=== PATIENT | female | born 1940 | race Caucasian/White ===

== ENCOUNTER → 2016-07-01 | Outpatient (CLI) | payer MEDICARE, OTHER ==
[~2016-07-01] MED LIST: ACET-2429 PO; ACET325T38 PO; BETH25TA PO; BYSTOLIC 5MG; CEPH-507 PO; DICL25CA4 PO; DIPH25CA79 PO; ENAL20TA PO; ENLP10T; FURO-124 PO; HYDR-1231 PO; HYDR-3812 PO; HYDROCHLOROT 25 MG; NEBI5TAB8 PO; OMEP20CA12 PO; OMEP40CA36 PO; POTA-51 PO; SIMV20TA3 PO; SOLI10TA2 PO; TYLENOL
--- OUTSIDE RECORDS SUMMARY | 2016-07-01 10:20 | XMS REPORT | Continuity of Care Document ---
Author Author [facility] Organization [facility] Address Unknown Phone Unavailable Care Team Providers Care Sampler Radioactive Waste Name Role Phone EVAN MURO MD PCP Insurance Providers Payer Name Policy Number Subscriber Name Relationship [employer] [id number] Jessica Yu 18 Self / Same As Patient Comm Crossover Enter Ins Name [id number] Jessica Yu 18 Self / Same As Patient Advance Directives Directive Response Recorded Date/Time Advance Directives No 05/12/16 11:33am Health Care Power of Wharf Tender Head No 05/12/16 11:33am Resuscitation Status Full Code 05/12/16 11:33am Problems Active Problems Medical Problem Onset Date Status Contusion Unknown Acute Medications Current Home Medications Medication Dose Units Route Directions Days/Qty Instructions Start Date Simvastatin 20 Mg 20 Mg Oral Daily 06/08/14 Enalapril Maleate 20 Mg 20 Mg Oral Daily 06/08/14 Omeprazole 20 Mg 20 Mg Oral Daily 30 06/08/14 Diclofenac Potassium 25 Mg 25 Mg Oral Twice A Day 05/12/16 Nebivolol Hcl 5 Mg 5 Mg Oral Daily 05/12/16 Acetaminophen 325 Mg 650 Mg Oral Twice A Day 05/12/16 Diphenhydramine Hcl 25 Mg 25 Mg Oral Twice A Day 05/12/16 Past Home Medications Medication Directions Ordered Status Enalapril Maleate 10 Mg Tablet, 12/29/07 Discontinued [Hydrochlorot 25MG] , 12/29/07 Discontinued [Bystolic 5MG] , 12/29/07 Discontinued [Tylenol] , 12/29/07 Discontinued Nebivolol Hcl 5 Mg Tablet, 5 Each Oral Daily 06/08/14 Discontinued Hydrocodone Bit/Acetaminophen 1 Tab Tablet, 1 Tab Oral Every 6 Hours as needed for Pain 06/08/14 Discontinued Social History Social History Problem Response Recorded Date/Time Alcohol Use Denies Use 06/08/2014 1:27pm Recreational Drug Use No 06/08/2014 1:27pm Recent Foreign Travel No 05/12/2016 11:32am Recent Infectious Disease Exposure No 05/12/2016 11:32am Hospitalization with Isolation Denies 05/12/2016 11:35am Sexually Transmitted Disease No 05/12/2016 11:35am HIV/AIDS No 05/12/2016 11:35am Smoking Status Former Smoker 05/12/2016 11:34am Type Used Cigarettes 05/12/2016 11:34am Recent Hopitalizations No 05/12/2016 11:35am Sexually Transmitted Disease No 05/12/2016 11:35am Hospitalization with Isolation Denies 05/12/2016 11:35am Query Response Start Date Stop Date Smoking Status Former Smoker Hospital Discharge Instructions No hospital discharge instructions. Plan of Care Discharge Date 05/12/16 2:02pm Prescriptions See Medication Section Functional Status No functional status results. Allergies, Adverse Reactions, Alerts Allergen Type Severity Reaction Status Last Updated Penicillins ([id number]) Allergy Severe FACE/EYE SWELLING Active 05/12/16 Immunizations No immunization records. Vital Signs Acute Vital Signs Vital Response Date/Time Pulse Rate (adult) 67 bpm (60 - 90) 05/12/2016 11:42am Respiratory Rate 16 bpm (12 - 24) 05/12/2016 11:42am O2 Sat by Pulse Oximetry 98 % (88 - 100) 05/12/2016 11:42am Blood Pressure 173/80 mm Hg 05/12/2016 11:42am Blood Pressure Mean 111 mm Hg 05/12/2016 11:42am Pain Numeric Pain Scale 0-No Pain 05/12/2016 11:42am Height (Feet) 5 feet 05/12/2016 11:29am Height (Inches) 7.00 inches 05/12/2016 11:29am Height (Calculated Centimeters) 170.140492 cm 05/12/2016 11:29am Weight (Pounds) 157 pounds 05/12/2016 11:29am Weight (Ounces) 9.0 oz 05/12/2016 11:29am Weight (Calculated Grams) 18831.15 gm 05/12/2016 11:29am Weight (Calculated Kilograms) 71.647704 kilograms 05/12/2016 11:29am Calculated BMI 24.7 05/12/2016 11:29am Results Laboratory Results Test Name Result Units Flags Reference Collection Date/Time Result Date/ Time Comments White Blood Count 6.4 10^3/uL 4.3-11.0 05/12/2016 11:50am 05/12/2016 12 :17pm Red Blood Count 4.66 10^6/uL 4.35-5.85 05/12/2016 11:50am 05/12/2016 12 :17pm Hemoglobin 14.1 G/DL 11.5-16.0 05/12/2016 11:50am 05/12/2016 12:17pm Hematocrit 43 % 35-52 05/12/2016 11:50am 05/12/2016 12:17pm Mean Corpuscular Volume 92 FL 80-99 05/12/2016 11:50am 05/12/2016 12: 17pm Mean Corpuscular Hemoglobin 30 PG 25-34 05/12/2016 11:50am 05/12/2016 12:17pm Mean Corpuscular Hemoglobin Concent 33 G/DL 32-36 05/12/2016 11:50am 12:17pm Red Cell Distribution Width 13.5 % 10.0-14.5 05/12/2016 11:50am 2015 12:17pm Platelet Count 158 10^3/uL 130-400 05/12/2016 11:50am 05/12/2016 12: 17pm Mean Platelet Volume 9.8 FL 7.4-10.4 05/12/2016 11:50am 05/12/2016 12: 17pm Neutrophils (%) (Auto) 56 % 42-75 05/12/2016 11:50am 05/12/2016 12: 17pm Lymphocytes (%) (Auto) 31 % 12-44 05/12/2016 11:50am 05/12/2016 12: 17pm Monocytes (%) (Auto) 10 % 0-12 05/12/2016 11:50am 05/12/2016 12:17pm Eosinophils (%) (Auto) 3 % 0-10 05/12/2016 11:50am 05/12/2016 12:17pm Basophils (%) (Auto) 0 % 0-10 05/12/2016 11:50am 05/12/2016 12:17pm Neutrophils # (Auto) 3.6 X 10^3 1.8-7.8 05/12/2016 11:50am 05/12/2016 12:17pm Lymphocytes # (Auto) 2.0 X 10^3 1.0-4.0 05/12/2016 11:50am 05/12/2016 12:17pm Monocytes # (Auto) 0.6 X 10^3 0.0-1.0 05/12/2016 11:50am 05/12/2016 12: 17pm Eosinophils # (Auto) 0.2 10^3/uL 0.0-0.3 05/12/2016 11:50am 05/12/2016 12:17pm Basophils # (Auto) 0.0 10^3/uL 0.0-0.1 05/12/2016 11:50am 05/12/2016 12 :17pm Urine Color YELLOW 05/12/2016 12:00pm 05/12/2016 12:26pm Urine Clarity SLIGHTLY CLOUDY 05/12/2016 12:00pm 05/12/2016 12: 26pm Urine pH 6 5-9 05/12/2016 12:00pm 05/12/2016 12:26pm Urine Specific [place] 1.010 * 1.016-1.022 05/12/2016 12:00pm 2015 12:26pm Urine Protein 2+ * NEGATIVE 05/12/2016 12:00pm 05/12/2016 12:26pm Urine Glucose (UA) NEGATIVE NEGATIVE 05/12/2016 12:00pm 05/12/2016 12 :26pm Urine RBC (Auto) 3+ * NEGATIVE 05/12/2016 12:00pm 05/12/2016 12:26pm Urine Ketones NEGATIVE NEGATIVE 05/12/2016 12:00pm 05/12/2016 12: 26pm Urine Nitrite NEGATIVE NEGATIVE 05/12/2016 12:00pm 05/12/2016 12: 26pm Urine Bilirubin NEGATIVE NEGATIVE 05/12/2016 12:00pm 05/12/2016 12: 26pm Urine Urobilinogen NORMAL MG/DL NORMAL 05/12/2016 12:00pm 05/12/2016 12 :26pm Urine Leukocyte Esterase 3+ * NEGATIVE 05/12/2016 12:00pm 05/12/2016 12 :26pm Urine RBC 2-5 /HPF * 05/12/2016 12:00pm 05/12/2016 12:26pm Urine WBC >100 /HPF * 05/12/2016 12:00pm 05/12/2016 12:26pm Urine Bacteria FEW /HPF * 05/12/2016 12:00pm 05/12/2016 12:26pm Urine Squamous Epithelial Cells 5-10 /HPF 05/12/2016 12:00pm 2015 12:26pm Urine Crystals NONE /LPF 05/12/2016 12:00pm 05/12/2016 12:26pm Urine Casts NONE /LPF 05/12/2016 12:00pm 05/12/2016 12:26pm Urine Mucus NEGATIVE /LPF 05/12/2016 12:00pm 05/12/2016 12:26pm Urine Culture Indicated YES 05/12/2016 12:00pm 05/12/2016 12:26pm Sodium Level 140 MMOL/L 135-145 05/12/2016 11:50am 05/12/2016 12:43pm Potassium Level 4.1 MMOL/L 3.6-5.0 05/12/2016 11:50am 05/12/2016 12: 43pm Chloride Level 110 MMOL/L H 98-107 05/12/2016 11:50am 05/12/2016 12:43pm Carbon Dioxide Level 23 MMOL/L 21-32 05/12/2016 11:50am 05/12/2016 12: 43pm Anion Gap 7 MMOL/L 5-14 05/12/2016 11:50am 05/12/2016 12:43pm Blood Urea Nitrogen 24 MG/DL H 7-18 05/12/2016 11:50am 05/12/2016 12: 43pm Creatinine 1.43 MG/DL H 0.60-1.30 05/12/2016 11:50am 05/12/2016 12:43pm BUN/Creatinine Ratio 17 05/12/2016 11:50am 05/12/2016 12:43pm Estimat Glomerular Filtration Rate 36 05/12/2016 11:50am 2015 12:43pm GFR INTERPRETIVE DATA UNITS FOR ESTIMATED GFR (eGFR): mL/min/1.73 M2 REFERENCE RANGE FOR ESTIMATED GFR (eGFR) eGFR NORMAL eGFR >60 MODERATELY DECREASED eGFR 30-59 SEVERLY DECREASED eGFR 15-29 KIDNEY FAILURE <15 (OR DIALYSIS) Glucose Level 89 MG/DL 70-105 05/12/2016 11:50am 05/12/2016 12:43pm Calcium Level 9.0 MG/DL 8.5-10.1 05/12/2016 11:50am 05/12/2016 12:43pm Total Bilirubin 0.4 MG/DL 0.1-1.0 05/12/2016 11:50am 05/12/2016 12: 43pm Alkaline Phosphatase 54 U/L 40-136 05/12/2016 11:50am 05/12/2016 12: 43pm Aspartate Amino Transf (AST/SGOT) 12 U/L 5-34 05/12/2016 11:50am 2015 12:43pm Alanine Aminotransferase (ALT/SGPT) 10 U/L 0-55 05/12/2016 11:50am 11/2015 12:43pm Total Protein 6.7 G/DL 6.4-8.2 05/12/2016 11:50am 05/12/2016 12:43pm Albumin 4.1 G/DL 3.2-4.5 05/12/2016 11:50am 05/12/2016 12:43pm Procedures Procedure Status Date Provider(s) Tracing only of electrocardiogram Active 05/12/16 TESFAYE KOTHARI DO Encounters Encounter Location Arrival/Admit Date Discharge/Depart Date Attending Provider Departed Clinic [facility] 05/12/16 11:19am 05/12/16 2: 02pm TESFAYE KOTHARI DO
--- NOTE | 2016-07-01 12:32 | Diagnostic Imaging Report ---
PROCEDURE: US Thyroid. TECHNIQUE: Multiple real-time grayscale images were obtained of the thyroid in various projections. INDICATION: Fullness in neck. FINDINGS: The previous thyroid ultrasound exam of 06/18/2014 noted diffuse enlargement of the thyroid gland. Each lobe also had a heterogeneous texture. On this study, the thyroid gland remains enlarged. The right lobe measures 6.2 x 3.5 x 2.6 cm while the left lobe is estimated to be 6.5 x 3.8 x 2.8 cm (normal gland size 4-5 x 2 x 2 cm or less). On the prior exam, the right lobe measured 6.1 x 3.2 x 2.4 cm while the left lobe is estimated to be 5.9 x 3.9 x 2.6 cm. Each lobe still has somewhat of a heterogeneous appearance, but there is no discrete solid or cystic mass identified. IMPRESSION: 1. The thyroid gland is enlarged and similar in appearance to the prior study. No new abnormality has developed. 2. If the patient's thyroid laboratory values suggest Graves' disease and if further imaging is desired, then a nuclear medicine thyroid scan with uptake will be recommended. Dictated by: Dictated on workstation # [id number]
== END ==
LOC: RAD 10:16
PROVIDERS: ATTEND Family Medicine
DX: R22.1 Localized swelling, mass and lump, neck (principal)
CPT/HCPCS: 76536

== ENCOUNTER 2016-07-05 22:34 | Inpatient (IN) | payer MEDICARE, OTHER ==
[~2016-07-05] VITALS: Ht 170.2 cm; Wt 71.8 kg
[~2016-07-05 22:34] MED LIST changes: -ACET-2429 PO; -BETH25TA PO; -FURO-124 PO; -OMEP40CA36 PO; -POTA-51 PO; -SOLI10TA2 PO
--- OUTSIDE RECORDS SUMMARY | 2016-07-05 22:39 | XMS REPORT | Continuity of Care Document ---
Author Author [facility] Organization [facility] Address Unknown Phone Unavailable Care Team Providers Care Corporate Librarian Name Role Phone EVAN MURO MD PCP Insurance Providers Payer Name Policy Number Subscriber Name Relationship [employer] [id number] Jessica Yu 18 Self / Same As Patient Comm Crossover Enter Ins Name [id number] Jessica Yu 18 Self / Same As Patient Advance Directives Directive Response Recorded Date/Time Advance Directives No 05/12/16 11:33am Health Care Power of Poll Watcher No 05/12/16 11:33am Resuscitation Status Full Code [...] Type Severity Reaction Status Last Updated Penicillins ([id number]) Allergy Severe FACE/EYE SWELLING Active 05/12/16 Immunizations [...] 7.00 inches 05/12/2016 11:29am Height (Calculated Centimeters) 170.253799 cm 05/12/2016 11:29am Weight (Pounds) 157 pounds 05/12/2016 11:29am Weight (Ounces) 9.0 oz 05/12/2016 11:29am Weight (Calculated Grams) 94089.15 gm 05/12/2016 11:29am Weight (Calculated Kilograms) 71.233640 kilograms 05/12/2016 11:29am Calculated BMI 24.7 05/12/2016 [...] 5-9 05/12/2016 12:00pm 05/12/2016 12:26pm Urine Specific [place] 1.010 * 1.016-1.022 05/12/2016 12:00pm 2015 12:26pm [...] Discharge/Depart Date Attending Provider Departed Clinic [facility] 05/12/16 11:19am 05/12/16 2: 02pm TESFAYE KOTHARI DO
[2016-07-05 22:59] LABS: BASOPHILS % (AUTO) 0 % (0-10); EOSINOPHILS % (AUTO) 0 % (0-10); LYMPHOCYTES # (AUTO) 0.8 X 10^3 (1.0-4.0); LYMPHOCYTES % (AUTO) 6 % (12-44); MEAN CORPUSCULAR HEMOGLOBIN 30 PG (25-34); MEAN CORPUSCULAR HGB CONC 33 G/DL (32-36); MEAN CORPUSCULAR VOLUME 90 FL (80-99); MEAN PLATELET VOLUME 10.5 FL (7.4-10.4); MONOCYTES # (AUTO) 2.4 X 10^3 (0.0-1.0); MONOCYTES % (AUTO) 16 % (0-12); NEUTROPHILS # (AUTO) 11.7 X 10^3 (1.8-7.8); NEUTROPHILS % (AUTO) 78 % (42-75); PLATELET COUNT 194 10^3/uL (130-400); RED BLOOD COUNT 4.42 10^6/uL (4.35-5.85); RED CELL DISTRIBUTION WIDTH 13.2 % (10.0-14.5); WHITE BLOOD COUNT 14.9 10^3/uL (4.3-11.0)
[2016-07-05] MEDS ORDERED: ACETAMINOPHEN 500 MG TAB (TYLENOL) PO ONE (23:00)
[2016-07-05 23:03] LABS: INR 1.1 (0.8-1.4); PROTHROMBIN TIME PATIENT 13.4 SEC (12.2-14.7)
[2016-07-05 23:22] LABS: NEUTROPHILS % (MANUAL) 69 %
[2016-07-05 23:23] LABS: BAND NEUTROPHILS 6 %; BASOPHILS % (MANUAL) 0 %; EOSINOPHILS % (MANUAL) 0 %; LYMPHOCYTES % (MANUAL) 18 %; REACTIVE LYMPHOCYTES 4 %
[2016-07-05 23:25] LABS: ALBUMIN 3.8 G/DL (3.2-4.5); BILIRUBIN,TOTAL 0.5 MG/DL (0.1-1.0); CALCIUM 8.8 MG/DL (8.5-10.1); CREATININE SERUM 2.46 MG/DL (0.60-1.30); POTASSIUM 4.7 MMOL/L (3.6-5.0); TOTAL PROTEIN 6.2 G/DL (6.4-8.2)
[2016-07-05] MEDS ORDERED: NS IV 1000 ML 1,000 ML IV ONE (23:36)
[2016-07-05 23:40] LABS: BILIRUBIN,URINE NEGATIVE (NEGATIVE); KETONES,URINE NEGATIVE (NEGATIVE); LEUKOCYTE ESTERASE ,URINE 3+ (NEGATIVE); NITRITE,URINE NEGATIVE (NEGATIVE); PH,URINE 6 (5-9); PROTEIN,URINE 4+ (NEGATIVE); UROBILINOGEN,URINE NORMAL (NORMAL)
[2016-07-05 23:45] LABS: WBC,URINE TNTC /HPF
[2016-07-05] MEDS ORDERED: cefTRIAXone INJECTION 1,000 MG in NORMAL SALINE (BAXTER MINI) 50 ML IV ONE (23:45)
[2016-07-06] VITALS (21 sets, daily range): BP systolic 89–158; BP diastolic 45–74
[2016-07-06] MEDS ORDERED: LEVOFLOXACIN 500 MG/100 ML IV 100 ML IV ONE (00:30)
--- NOTE | 2016-07-06 00:34 | ED General ---
General Chief Complaint: Fever-Adult/Adol Stated Complaint: WEAKNESS Nursing Triage Note: per EMS patient recently had a bladder sling, patient has been having dysuria and developed fever today. family activated EMS because patient wasn't able to get out of chair Nursing Sepsis Screen: Possible Sepsis Risk Source of Information: Patient Exam Limitations: No Limitations History of Present Illness Time Seen by Provider: 22:54 Initial Comments This pleasant 76-year-old woman presents to the emergency room via EMS from her home where she was found to be extremely weak and unable to get out of her chair. She has been feeling ill since last night. Review of her chart notes a recent bladder sling procedure in May by Dr. Dubon. Patient reports some difficulty urinating since then. UA collected shows grossly cloudy and purulent urine. Patient was felt to be at high risk for sepsis and the sepsis protocol was initiated. Patient's lower abdomen is tender and appears distended. Urinary retention is suspected. Patient denies any gastrointestinal or respiratory symptoms. She is febrile and tachycardic. Allergies and Home Medications Allergies Coded Allergies: Penicillins (Verified Allergy, Severe, FACE/EYE SWELLING, 05/12/16) Home Medications Acetaminophen 325 Mg Tablet 650 MG PO BID (Reported) Diclofenac Potassium 25 Mg Capsule 25 MG PO BID (Reported) Diphenhydramine HCl 25 Mg Capsule 25 MG PO BID (Reported) Enalapril Maleate 20 Mg Tablet 20 MG PO DAILY (Reported) Nebivolol HCl 5 Mg Tablet 5 MG PO DAILY (Reported) Omeprazole 20 Mg Capsule.dr #30 20 MG PO DAILY (Reported) Simvastatin 20 Mg Tablet 20 MG PO DAILY (Reported) Constitutional: see HPI EENTM: no symptoms reported Respiratory: no symptoms reported Cardiovascular: see HPI Gastrointestinal: no symptoms reported Genitourinary: see HPI : No Musculoskeletal: no symptoms reported Skin: no symptoms reported Psychiatric/Neurological: Other (alert and oriented but mentation dulled) Hematologic/Lymphatic: No Symptoms Reported Past [id number]-Wuzkec Hx Patient Social History Alcohol Use: Denies Use Recreational Drug Use: No Smoking Status: Former Smoker Type Used: Cigarettes Recent Foreign Travel: No Contact w/Someone Who Travel: No Recent Infectious Disease Expo: No Recent Hopitalizations: No Physical Abuse Screen: No Sexual Abuse: No Immunizations Up To Date Date of Pneumonia Vaccine: Jun 07, 2012 Date of Influenza Vaccine: Apr 27, 2016 Seasonal Allergies Seasonal Allergies: Yes Surgeries HX Surgeries: Yes Surgeries: Bladder Surgery, Hysterectomy Respiratory Hx Respiratory Disorders: No Cardiovascular Hx Cardiac Disorders: Yes Cardiac Disorders: High Cholesterol, Hypertension Neurological Hx Neurological Disorders: No Reproductive System Hx Reproductive Disorders: Yes (GENITAL PROLAPSE) Sexually Transmitted Disease: No HIV/AIDS: No Genitourinary Hx Genitourinary Disorders: Yes (SYDNIE, ) Genitourinary Disorders: UTI-Chronic Gastrointestinal Hx Gastrointestinal Disorders: Yes (HAS TAKEN OMEPRAZOLE SINCE EGD WITH DILATION) Gastrointestinal Disorders: Gastroesophageal Reflux Musculoskeletal Hx Musculoskeletal Disorders: Yes Musculoskeletal Disorders: Arthritis, Chronic Back Pain Endocrine Hx Endocrine Disorders: No HEENT HX ENT Disorders: No (GLASSES, DENTURES) Loss of Vision: Bilateral Hearing Impairment: Denies Cancer Hx Cancer: No Psychosocial Hx Psychiatric Problems: No Integumentary HX Skin/Integumentary Disorder: No Blood Transfusions Hx Blood Disorders: No Adverse Reaction to a Blood Tr: No (N/A) Physical Exam Vital Signs Vital Sign - Last 12Hours 07/05/16 07/05/16 22:41 23:41 Temp 101.7 Pulse 100 Resp 20 B/P 156/71 Pulse Ox 98 O2 Delivery Room Air Capillary Refill : Less Than 3 Seconds General Appearance: No Apparent Distress WD/WN HEENT: Normal ENT Inspection Pharynx Normal Neck: Normal Inspection Respiratory: Lungs Clear Normal Breath Sounds No Accessory Muscle Use No Respiratory Distress Cardiovascular: Regular Rate, Rhythm No Edema No Murmur Gastrointestinal: Normal Bowel Sounds Soft Distended (pelvis) Tenderness ( suprapubic) Other (bladder appears distended by palpation and is tender. Bladder scan reveals more than 800 mL) Genital/Rectal: Other (inflamed perineum per nursing staff during placement of Landa) Extremity: Normal Inspection No Pedal Edema Neurologic/Psychiatric: Alert Oriented x3 (but mentation dulled. 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 Norm as Tested Skin: Normal Color Warm/Dry Other (skin was pink, warm, with normal capillary refill) Progress/Results/Core Measures Results/Orders Lab Results Laboratory Tests Test 07/05/16 22:45 07/05/16 23:08 07/05/16 23:25 Range/Units Activated Partial Thromboplast Time 30 24-35 SEC Alanine Aminotransferase (ALT/SGPT) 6 0-55 U/L Albumin 3.8 3.2-4.5 G/DL Alkaline Phosphatase 53 40-136 U/L Anion Gap 14 5-14 MMOL/L Aspartate Amino Transf (AST/SGOT) 12 5-34 U/L BUN/Creatinine Ratio 17 Band Neutrophils 6 % Basophils # (Auto) 0.0 0.0-0.1 10^3/uL Basophils % (Manual) 0 % Basophils (%) (Auto) 0 0-10 % Blood Morphology Comment NORMAL Blood Urea Nitrogen 41 H 7-18 MG/DL Calcium Level 8.8 8.5-10.1 MG/DL Carbon Dioxide Level 15 L 21-32 MMOL/L Chloride Level 106 98-107 MMOL/L Creatinine 2.46 H 0.60-1.30 MG/DL Eosinophils # (Auto) 0.0 0.0-0.3 10^3/uL Eosinophils % (Manual) 0 % Eosinophils (%) (Auto) 0 0-10 % Estimat Glomerular Filtration Rate 19 Glucose Level 166 H 70-105 MG/DL Hematocrit 40 35-52 % Hemoglobin 13.3 11.5-16.0 G/DL INR Comment 1.1 0.8-1.4 Lymphocytes # (Auto) 0.8 L 1.0-4.0 X 10^3 Lymphocytes % (Manual) 18 % Lymphocytes (%) (Auto) 6 L 12-44 % Mean Corpuscular Hemoglobin 30 25-34 PG Mean Corpuscular Hemoglobin Concent 33 32-36 G/DL Mean Corpuscular Volume 90 80-99 FL Mean Platelet Volume 10.5 H 7.4-10.4 FL Monocytes # (Auto) 2.4 H 0.0-1.0 X 10^3 Monocytes % (Manual) 3 % Monocytes (%) (Auto) 16 H 0-12 % Neutrophils # (Auto) 11.7 H 1.8-7.8 X 10^3 Neutrophils % (Manual) 69 % Neutrophils (%) (Auto) 78 H 42-75 % Platelet Count 194 130-400 10^3/uL Potassium Level 4.7 3.6-5.0 MMOL/L Prothrombin Time 13.4 12.2-14.7 SEC Reactive Lymphocytes 4 % Red Blood Count 4.42 4.35-5.85 10^6/uL Red Cell Distribution Width 13.2 10.0-14.5 % Sodium Level 135 135-145 MMOL/L Total Bilirubin 0.5 0.1-1.0 MG/DL Total Protein 6.2 L 6.4-8.2 G/DL White Blood Count 14.9 H 4.3-11.0 10^3/uL Lactic Acid Level 1.6 0.5-2.0 MMOL/L Urine Bacteria LARGE H /HPF Urine Bilirubin NEGATIVE NEGATIVE Urine Casts NONE /LPF Urine Clarity VERY CLOUDY H Urine Color BROWN H Urine Crystals NONE /LPF Urine Culture Indicated YES Urine Glucose (UA) NEGATIVE NEGATIVE Urine Ketones NEGATIVE NEGATIVE Urine Leukocyte Esterase 3+ H NEGATIVE Urine Mucus NEGATIVE /LPF Urine Nitrite NEGATIVE NEGATIVE Urine Protein 4+ NEGATIVE Urine RBC TNTC H /HPF Urine RBC (Auto) 5+ H NEGATIVE Urine Specific [place] 1.015 L 1.016-1.022 Urine Urobilinogen NORMAL NORMAL MG/DL Urine WBC TNTC H /HPF Urine pH 6 5-9 Micro Results Microbiology 07/05/16 Influenza Types A,B Antigen (LUCY) - Final, Complete My Orders Orders-JUANA ADAMS MD Cbc With Automated Diff (07/05/16 22:53) Comprehensive Metabolic Panel (07/05/16 22:53) Lactic Acid Analyzer (07/05/16 22:53) Blood Culture (07/05/16 22:53) Sputum Culture (07/05/16 22:53) Ua Culture If Indicated (07/05/16 22:53) Protime With Inr (07/05/16 22:53) Partial Thromboplastin Time (07/05/16 22:53) Chest 1 View, Ap/Pa Only (07/05/16 22:53) O2 (07/05/16 22:53) Saline Lock/Iv-Start (07/05/16 22:53) Saline Lock/Iv-Start (07/05/16 22:53) Vital Signs Adult Sepsis Patie Q1HR (07/05/16 22:53) Remove Rings In Anticipation O (07/05/16 22:53) Acetaminophen Tablet (Tylenol Tablet) (07/05/16 23:00) Influenza A And B Antigens (07/05/16 22:53) Manual Differential (07/05/16 22:45) Ns Iv 1000 Ml (Sodium Chloride 0.9%) (07/05/16 23:36) Ceftriaxone Injection (Rocephin Injectio (07/05/16 23:45) Urine Culture (07/05/16 23:25) Bladder Scan (07/05/16 23:48) Landa Cath Insertion (07/06/16 00:12) Levofloxacin 500 Mg/100 Ml Iv (Levaquin (07/06/16 00:30) Medications Given in ED Current Medications Medications Dose Ordered Sig/Claude Route Start Time Stop Time Status Last Admin Dose Admin Acetaminophen 1000 mg 1,000 mg ONCE ONCE PO 07/05/16 23:00 07/05/16 23:01 DC 07/05/16 22:59 1,000 MG Ceftriaxone Sodium/Sodium Chloride 50 ml @ 100 mls/hr ONCE ONCE IV 07/05/16 23:45 07/06/16 00:14 DC 07/05/16 23:47 100 MLS/HR Sodium Chloride 1,000 ml @ 0 mls/hr Q0M ONCE IV 07/05/16 23:36 07/05/16 23:37 DC 07/05/16 23:46 0 MLS/HR Vital Signs/I&O Vital Sign - Last 12Hours 07/05/16 07/05/16 07/06/16 22:41 23:41 00:17 Temp 101.7 101.4 102.0 Pulse 100 98 97 Resp 20 18 18 B/P 156/71 144/67 129/69 Pulse Ox 98 98 98 O2 Delivery Room Air Room Air Blood Pressure Mean: 89 Progress Note : Progress Note Sepsis from urinary tract infection was suspected. Patient was given Rocephin for initial treatment. Review of chart shows Keflex was administered after her surgery. She developed urinary tract infection despite this prophylactic measure. For this reason a second antibiotic, Levaquin, was added in the ER. Patient technically met severe sepsis criteria. She received 2 L of IV fluids. This plus the volume of her antibiotics exceeded the 2100 ml (30 ML per kilogram) bolus for severe sepsis. IV fluids were ordered to continue in the ICU. Bladder scan revealed greater than 800 mL retained urine. A Landa catheter was placed and approximately 1 L of purulent-appearing urine was drained. Tylenol was given for fever. Diagnostic Imaging Diagonstic Imaging: Xray Plain Films/CT/US/NM/MRI: chest Comments Chest x-ray viewed by me. Report not yet available. No acute abnormalities were appreciated. Departure Communication Time/Spoke to Admitting Phy: 00:[address] Ko agrees with management with the sepsis protocol. She would like to patient admitted to the ICU. Impression Impression: Primary Impression: Severe sepsis Additional Impressions: Urinary retention Acute renal failure Qualified Code: N17.9 - Acute kidney failure, unspecified Urinary tract infection Qualified Code: N39.0 - Urinary tract infection, site not specified Disposition: ADMITTED INPATIENT Condition: Improved Time/Decision to Admit Time: 23:40 Departure-Patient Inst. Referrals: EVAN MURO MD (PCP/Family) Primary Care Physician JUANA ADAMS MD Jul 06, 2016 00:34
[2016-07-06] MEDS ORDERED: fluCOnazole (DIFLUCAN) 100 MG TAB ONE (01:51)
[2016-07-06] MEDS: NS IV 1000 ML 1,000 ML IV SCH ×4 (01:56→17:08)
[2016-07-06] MEDS ORDERED: fluCOnazole (DIFLUCAN) 100 MG TAB PO SCH (02:00)
[2016-07-06] MEDS ORDERED: NS IV SCH (03:00)
[2016-07-06] MEDS ORDERED: VASOPRESSIN IV SCH (03:00)
[2016-07-06] MEDS ORDERED: NOREPINEPHRINE 4 MG in D5W 250 ML (IVPB) IV SCH (03:00)
[2016-07-06] MEDS ORDERED: NYSTATIN POWDER 100,000 UNITS 15 GM BTL TOP PRN (03:00)
[2016-07-06] MEDS ORDERED: ACETAMINOPHEN 650 MG SUPP (TYLENOL) PR PRN (03:00)
[2016-07-06] MEDS ORDERED: ONDANSETRON 4 MG/2 ML (SDV) Z0FRAN IV PRN (03:00)
[2016-07-06 04:07] LABS: BASOPHILS % (AUTO) 0 % (0-10); EOSINOPHILS % (AUTO) 0 % (0-10); LYMPHOCYTES # (AUTO) 0.4 X 10^3 (1.0-4.0); LYMPHOCYTES % (AUTO) 4 % (12-44); MEAN CORPUSCULAR HEMOGLOBIN 30 PG (25-34); MEAN CORPUSCULAR HGB CONC 33 G/DL (32-36); MEAN CORPUSCULAR VOLUME 91 FL (80-99); MEAN PLATELET VOLUME 9.6 FL (7.4-10.4); MONOCYTES % (AUTO) 11 % (0-12); NEUTROPHILS # (AUTO) 8.2 X 10^3 (1.8-7.8); NEUTROPHILS % (AUTO) 85 % (42-75); PLATELET COUNT 147 10^3/uL (130-400); RED BLOOD COUNT 3.78 10^6/uL (4.35-5.85); RED CELL DISTRIBUTION WIDTH 13.1 % (10.0-14.5); WHITE BLOOD COUNT 9.7 10^3/uL (4.3-11.0)
[2016-07-06 04:17] LABS: INR 1.2 (0.8-1.4); PROTHROMBIN TIME PATIENT 15.2 SEC (12.2-14.7)
[2016-07-06 04:28] LABS: BILIRUBIN,TOTAL 0.5 MG/DL (0.1-1.0); CREATININE SERUM 2.08 MG/DL (0.60-1.30); MAGNESIUM 1.5 MG/DL (1.8-2.4); PHOSPHORUS 2.5 MG/DL (2.3-4.7); POTASSIUM 4.2 MMOL/L (3.6-5.0); TOTAL PROTEIN 5.2 G/DL (6.4-8.2)
[2016-07-06 05:24] LABS: ABG OXYGEN SATURATION 97 % (94-100); ABG PCO2 26 MMHG (35-45); ABG PH 7.38 (7.37-7.43); ABG PO2 86 MMHG (79-93); ABG TCO2 15.5 MMOL/L (21.0-31.0)
[2016-07-06 05:27] LABS: ABG HCO3 15 MMOL/L (23-27); PATIENT TEMP 98.6
[2016-07-06] MEDS ORDERED: KCL 20 MEQ TAB (K-DUR) PO SCH (06:00)
[2016-07-06] MEDS ORDERED: POTASSIUM CL 10MEQ/50ML IVPB 50 ML IV SCH (06:00)
[2016-07-06] MEDS ORDERED: MAGNESIUM 1 GM/100 ML IVPB 100 ML IV SCH (06:00)
--- NOTE | 2016-07-06 06:09 | Pulmonary Consultation ---
History of Present Illness History of Present Illness Date of Consultation 07/06/16 06:04 Date of Admission History of Present Illness 76yo with hx of recent bladder sling in May presented to ED via EMS found to be extremely weak and unable to get out of chair. Onset was 2 days ago. Pt has had dysuria since May. UA shows UTI. No prior episodes like this. I am consulted for ICU management. Allergies and Home Medications Allergies Coded Allergies: Penicillins (Verified Allergy, Severe, FACE/EYE SWELLING, 05/12/16) Home Medications Acetaminophen 325 Mg Tablet 650 MG PO BID (Reported) Diclofenac Potassium 25 Mg Capsule 25 MG PO BID (Reported) Diphenhydramine HCl 25 Mg Capsule 25 MG PO BID (Reported) Enalapril Maleate 20 Mg Tablet 20 MG PO DAILY (Reported) Nebivolol HCl 5 Mg Tablet 5 MG PO DAILY (Reported) Omeprazole 20 Mg Capsule.dr #30 20 MG PO DAILY (Reported) Simvastatin 20 Mg Tablet 20 MG PO DAILY (Reported) Past Ytdagoc-Inrehb-Zgdvuz Hx Patient Social History Alcohol Use: Denies Use Recreational Drug Use: No Smoking Status: Former Smoker Type Used: Cigarettes Recent Foreign Travel: No Contact w/Someone Who Travel: No Recent Infectious Disease Expo: No Recent Hopitalizations: No Physical Abuse Screen: No Sexual Abuse: No Immunizations Up To Date Date of Pneumonia Vaccine: Jun 07, 2012 Date of Influenza Vaccine: Apr 27, 2016 Seasonal Allergies Seasonal Allergies: Yes Surgeries HX Surgeries: Yes Surgeries: Bladder Surgery, Hysterectomy Respiratory Hx Respiratory Disorders: No Cardiovascular Hx Cardiac Disorders: Yes Cardiac Disorders: High Cholesterol, Hypertension Neurological Hx Neurological Disorders: No Reproductive System : No Hx Reproductive Disorders: Yes (GENITAL PROLAPSE) Sexually Transmitted Disease: No HIV/AIDS: No Genitourinary Hx Genitourinary Disorders: Yes (SYDNIE, ) Genitourinary Disorders: UTI-Chronic Gastrointestinal Hx Gastrointestinal Disorders: Yes (HAS TAKEN OMEPRAZOLE SINCE EGD WITH DILATION) Gastrointestinal Disorders: Gastroesophageal Reflux Musculoskeletal Hx Musculoskeletal Disorders: Yes Musculoskeletal Disorders: Arthritis, Chronic Back Pain Endocrine Hx Endocrine Disorders: No HEENT HX ENT Disorders: No (GLASSES, DENTURES) Loss of Vision: Bilateral Hearing Impairment: Denies Cancer Hx Cancer: No Psychosocial Hx Psychiatric Problems: No Integumentary HX Skin/Integumentary Disorder: No Blood Transfusions Hx Blood Disorders: No Adverse Reaction to a Blood Tr: No (N/A) Family Medical History Family Medial History: Cardiovascular disease 19 MOTHER (heart problems) Neoplasm G8 SISTER (cancer but does not know what kind) Osteoporosis G8 SISTER (polio as child) Review of Systems Constitutional: : Chills: Fever: Malaise: Sweats: Weakness Eyes: No: Conjunctivae inflammation, Eyelid inflammation, Other, Pain, Redness , Vision change ENT: No: Ear discharge, Ear pain, Mouth pain, Mouth swelling, Nose congestion, Nose discharge, Nose pain, Other, Throat pain, Throat swelling Respiratory: No: Cough, Dry, Hemoptysis, Other, Pleuritic Pain, SOB with excertion, Shortness of breath, Sputum, Wheezing, Wheezing Cardiovascular: No: Chest Pain, Edema, Lt Headedness, Orthopnea, Other, Palpitations, Paroxysmal Noc. Dyspnea Gastrointestinal: : Abdominal Pain: Nausea Genitourinary: Dysuria Retention Musculoskeletal: No: arm pain, back pain, foot pain, hand pain, leg pain, neck pain, other, shoulder pain Skin: No: Bruising, Jaundice, Lesions, Other, Rash Neurological: : Confusion: Weakness Sepsis Event Evaluation Sepsis Stage: Severe Sepsis Possible Source: Genitouriary Exam Exam Vital Signs Date Time Temp Pulse Resp B/P Pulse Ox O2 Delivery O2 Flow Rate FiO2 07/06/16 06:00 85 16 108/53 90 Room Air 07/06/16 05:00 85 17 97/52 93 Room Air 07/06/16 04:00 Room Air 07/06/16 04:00 100.1 89 23 117/52 96 Room Air 07/06/16 04:00 100.1 89 23 117/52 96 Room Air 07/06/16 03:30 88 27 104/52 95 Room Air 07/06/16 03:00 90 26 101/68 94 Room Air 07/06/16 03:00 90 26 101/51 94 Room Air 07/06/16 02:45 90 26 113/45 96 Room Air 07/06/16 02:30 88 25 124/56 97 Room Air 07/06/16 02:15 89 16 137/65 99 Room Air 07/06/16 02:00 90 16 121/60 100 Room Air 07/06/16 02:00 90 16 124/60 100 Room Air 07/06/16 01:45 86 19 123/57 100 Room Air 07/06/16 01:36 87 07/06/16 01:32 100.9 92 19 105/54 98 Room Air 07/06/16 01:30 87 22 117/53 99 Room Air 07/06/16 01:30 98 Room Air 07/06/16 01:20 100.9 93 17 101/74 98 Room Air 07/06/16 01:15 93 17 101/74 98 Room Air 07/06/16 01:15 92 07/06/16 00:57 101.0 93 16 98 Room Air 07/06/16 00:17 102.0 97 18 129/69 98 Room Air 07/05/16 23:41 101.4 98 18 144/67 98 Room Air 07/05/16 22:41 101.7 100 20 156/71 98 I & O 07/06/16 07:00 Intake Total 2200 ml Output Total 855 ml Balance 1345 ml General Appearance: No Apparent Distress WD/WN HEENT: Normal ENT Inspection Pharynx Normal Neck: Normal Inspection Respiratory: Lungs Clear Normal Breath Sounds No Accessory Muscle Use No Respiratory Distress Cardiovascular: Regular Rate, Rhythm No Edema No Murmur Capillary Refill: Less Than 3 Seconds Extremity: Normal Inspection No Pedal Edema Neurologic/Psychiatric: Alert Oriented x3 (but mentation dulled. 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 Will transfer to 4th floor. Clinical Quality Measures DVT/VTE Risk/Contraindication: Risk Factor Score Per Nursin RFS Level Per Nursing on Admit: 2=Moderate JODI DESIR DO Jul 06, 2016 06:09
[2016-07-06] MEDS: MAGNESIUM 1 GM/100 ML IVPB 100 ML IV SCH ×2 (06:40→08:28)
[2016-07-06] MEDS ORDERED: CATHETER FLUSH 10 ML SYR IV PRN (07:00)
--- NOTE | 2016-07-06 07:10 | Diagnostic Imaging Report ---
INDICATION: Fever. COMPARISON STUDY: Chest from 05/12/16. FINDINGS: A portable upright view of the chest demonstrates lungs to be clear. The heart, mediastinum and pulmonary vascularity are normal. There are some calcifications of the aorta. IMPRESSION: There are no acute findings. Dictated by: Dictated on workstation # [id number]
--- NOTE | 2016-07-06 08:18 | Diagnostic Imaging Report ---
INDICATION: Sepsis. UTI. Bladder retention. COMPARISON: 07/05/2016 FINDINGS: Single frontal radiographic view of the chest was obtained and shows normal cardiac silhouette and pulmonary vasculature. There is aortic atherosclerosis. Lungs are clear and show no focal consolidations, pleural effusions, nor pneumothoraces. Bony structures show no gross acute abnormalities. IMPRESSION: 1. No acute cardiopulmonary process. Dictated by: Dictated on workstation # [id number]
[2016-07-06] MEDS ORDERED: ACET-2429 PO (09:12)
[2016-07-06] MEDS ORDERED: ENAL20TA PO (09:12)
[2016-07-06] MEDS ORDERED: SIMV20TA3 PO (09:12)
[2016-07-06] MEDS ORDERED: OMEP40CA36 PO (09:12)
[2016-07-06] MEDS ORDERED: SOLI10TA2 PO (09:25)
--- NOTE | 2016-07-06 13:23 | History & Physical-Hospitalist ---
HPI History of Present Illness: HPI/Chief Complaint The patient is a 76-year-old white female who presented to the emergency room last night by ambulance. Her family had found her at home extremely weak and unable to get out of the chair. She had become ill the night before. Historically she had a vaginal prolapse and had a surgical procedure including a bladder sling on 05/26/[address] Raquel Dubon. She had been dismissed with a catheter and after its removal had been instructed to report any difficulties with urination. Apparently she had not. She somewhat unconvincing later tells me that she was not ill until Wednesday07/04/16 but had had to get up to urinate at about hourly intervals for several days. Source: patient, family Exam Limitations: no limitations Date Seen 07/06/16 Attending Physician Raquel Dubon Floyd R MD Referring Physician Date of Admission Jul 06, 2016 at 00:27 Home Medications & Allergies Home Medications Reviewed patient Home Medication Reconciliation Form Allergies Coded Allergies: Penicillins (Verified Allergy, Severe, FACE/EYE SWELLING, 05/12/16) Past Rsyqjag-Puratt-Danodz Hx Patient Social History Alcohol Use: Denies Use Recreational Drug Use: No Smoking Status: Former Smoker Type Used: Cigarettes Physical Abuse Screen: No Sexual Abuse: No Recent Foreign Travel: No Contact w/other who traveled: No Recent Hopitalizations: No Recent Infectious Disease Expo: No Immunizations Up To Date Date of Pneumonia Vaccine: Jun 07, 2012 Date of Influenza Vaccine: Apr 27, 2016 Seasonal Allergies Seasonal Allergies: Yes Surgeries HX Surgeries: Yes Surgeries: Bladder Surgery, Hysterectomy Respiratory Hx Respiratory Disorders: No Cardiovascular Hx Cardiovascular Disorders: Yes Cardiac Disorders: High Cholesterol, Hypertension Neurological Hx Neurological Disorders: No Reproductive System : No Hx Reproductive Disorders: Yes (GENITAL PROLAPSE) Sexually Transmitted Disease: No HIV/AIDS: No Genitourinary Hx Genitourinary Disorders: Yes (SYDNIE, ) Genitourinary Disorders: UTI-Chronic Gastrointestinal Hx Gastrointestinal Disorders: Yes (HAS TAKEN OMEPRAZOLE SINCE EGD WITH DILATION) Gastrointestinal Disorders: Gastroesophageal Reflux Musculoskeletal Hx Musculoskeletal Disorders: Yes Musculoskeletal Disorders: Arthritis, Chronic Back Pain Endocrine Hx Endocrine Disorders: No HEENT HX ENT Disorders: No (GLASSES, DENTURES) Loss of Vision: Bilateral Hearing Impairment: Denies Cancer Hx Cancer: No Psychosocial Hx Psychiatric Problems: No Integumentary HX Skin/Integumentary Disorder: No Blood Transfusions Hx Blood Disorders: No Adverse Reaction to a Blood Tr: No (N/A) Family Medical History Family Hx: Cardiovascular disease 19 MOTHER (heart problems) Neoplasm G8 SISTER (cancer but does not know what kind) Osteoporosis G8 SISTER (polio as child) Review of Systems Constitutional: see HPI EENTM: hearing loss no symptoms reported Respiratory: no symptoms reported Cardiovascular: no symptoms reported Genitourinary: dysuria frequency Musculoskeletal: muscle weakness Skin: no symptoms reported Psychiatric/Neurological: No Symptoms Reported Physical Exam Physical Exam Vital Signs Vital Sign - Last 12Hours 07/05/16 07/05/16 22:41 23:41 Temp 101.7 Pulse 100 Resp 20 B/P 156/71 Pulse Ox 98 O2 Delivery Room Air Capillary Refill : Less Than 3 Seconds General Appearance: Other (76-year-old white female who looks a fair bit older than her stated age.) Eyes: Bilateral Eye Normal Inspection HEENT: Normal ENT Inspection Neck: Normal Inspection Respiratory: Chest Non Tender Lungs Clear Normal Breath Sounds No Accessory Muscle Use No Respiratory Distress Cardiovascular: Regular Rate, Rhythm No Edema No Gallop No JVD No Murmur Normal Peripheral Pulses Gastrointestinal: Normal Bowel Sounds No Organomegaly No Pulsatile Mass Non Tender Soft Extremity: Normal Capillary Refill Normal Inspection Normal Range of Motion Non Tender No Calf Tenderness No Pedal Edema Neurologic/Psychiatric: Alert Oriented x3 No Motor/Sensory Deficits Normal Mood/Affect Skin: Normal Color Warm/Dry Lymphatic: No Adenopathy Results Results/Procedures Lab Laboratory Tests 07/05/16 22:45 07/06/16 03:55 Assessment/Plan Admission Diagnosis 1.urinary tract infection/sepsis. 2.recent surgery with suggestion of outlet obstruction Clinical Quality Measures DVT/VTE Risk/Contraindication: Risk Factor Score Per Nursin RFS Level Per Nursing on Admit: 2=Moderate ABRAHAM SOSA MD Jul 06, 2016 13:23
[2016-07-06] MEDS: cefTRIAXone 1 GM/NS 50 ML IVPB IV SCH ×2 (20:30)
[2016-07-06] MEDS: ACETAMINOPHEN 325 MG TABLET/CAPLET (TYLENOL) PO PRN (20:31)
[2016-07-07] VITALS: BP 117/64
[2016-07-07] MEDS: NS IV 1000 ML 1,000 ML IV SCH ×3 (00:08→13:40)
[2016-07-07 04:00] VITALS: BP 152/79
[2016-07-07] MEDS: ACETAMINOPHEN 325 MG TABLET/CAPLET (TYLENOL) PO PRN ×2 (04:21→19:37)
[2016-07-07 05:27] LABS: BASOPHILS % (AUTO) 0 % (0-10); EOSINOPHILS % (AUTO) 0 % (0-10); LYMPHOCYTES # (AUTO) 0.8 X 10^3 (1.0-4.0); LYMPHOCYTES % (AUTO) 9 % (12-44); MEAN CORPUSCULAR HEMOGLOBIN 31 PG (25-34); MEAN CORPUSCULAR HGB CONC 33 G/DL (32-36); MEAN CORPUSCULAR VOLUME 93 FL (80-99); MEAN PLATELET VOLUME 9.8 FL (7.4-10.4); MONOCYTES # (AUTO) 1.2 X 10^3 (0.0-1.0); MONOCYTES % (AUTO) 14 % (0-12); NEUTROPHILS # (AUTO) 6.5 X 10^3 (1.8-7.8); NEUTROPHILS % (AUTO) 76 % (42-75); PLATELET COUNT 125 10^3/uL (130-400); RED BLOOD COUNT 3.38 10^6/uL (4.35-5.85); RED CELL DISTRIBUTION WIDTH 13.4 % (10.0-14.5); WHITE BLOOD COUNT 8.5 10^3/uL (4.3-11.0)
[2016-07-07 05:37] LABS: INR 1.2 (0.8-1.4); PROTHROMBIN TIME PATIENT 15.2 SEC (12.2-14.7)
[2016-07-07 05:50] LABS: ALANINE AMINOTRANSFERASE < 6 U/L (0-55); ALBUMIN 2.7 G/DL (3.2-4.5); ANION GAP 6 MMOL/L (5-14); ASPARTATE AMINO TRANSFERASE 10 U/L (5-34); BILIRUBIN,TOTAL 0.2 MG/DL (0.1-1.0); BLOOD UREA NITROGEN 30 MG/DL (7-18); BUN/CREATININE RATIO 19; CARBON DIOXIDE 16 MMOL/L (21-32); CHLORIDE 117 MMOL/L (98-107); CREATININE SERUM 1.56 MG/DL (0.60-1.30); GFR ESTIMATED 32; GLUCOSE 104 MG/DL (70-105); PHOSPHORUS 2.5 MG/DL (2.3-4.7); SODIUM 139 MMOL/L (135-145)
--- NOTE | 2016-07-07 07:44 | Diagnostic Imaging Report ---
INDICATION: Sepsis, UTI. COMPARISON: 07/06/2016. FINDINGS: No focal consolidation. Please note posterior lower lobes are poorly evaluated by portable radiography. Chronic reticular opacities in the lung apices may relate to underlying emphysema. No pleural effusion or pneumothorax. Normal heart size. Normal pulmonary vasculature. IMPRESSION: No acute cardiopulmonary process by portable radiography. Dictated by: Dictated on workstation # [id number]
[2016-07-07 08:00] VITALS: BP 140/75
--- NOTE | 2016-07-07 10:57 | Consultation ---
History of Present Illness History of Present Illness Patient Consulted On(arturo/time) 07/07/16 10:57 Date of Admission 07/06/16 History of Present Illness Per ED note - This pleasant 76-year-old woman presents to the emergency room via EMS from her home where she was found to be extremely weak and unable to get out of her chair. She has been feeling ill since last night. Review of her chart notes a recent bladder sling procedure in May by Dr. Kothari. Patient reports some difficulty urinating since then. UA collected shows grossly cloudy and purulent urine. Patient was felt to be at high risk for sepsis and the sepsis protocol was initiated. Patient's lower abdomen is tender and appears distended. Urinary retention is suspected. Patient denies any gastrointestinal or respiratory symptoms. She is febrile and tachycardic. Jessica is well known to me. She was referred from Dr. Nayak for urinary incontinence. Over several months we trialed different treatments for urinary incontinence. She had seen Dr. Hill in the past with put her on different medications for urgency as well as vaginal estrogen. She had not been compliant with those medications or had stopped them due to side effects. When I saw her last fall we trialed a pessary for prolapse. In addition, her daughter had been diagnosed with what they thought was stage IV melanoma she was concerned about traveling on a plane (it turned out not to be stage IV, and she did not travel to [place]). Her main complaint has always been irritation internally and externally, as well as frequency with incontinence. She wears a depend or some type of diaper all the time. we used different estrogens and I eventually placed an Estring to help with the incontinence as well as the vaginal atrophy. This did help some but did not help with the urinary frequency. We trialed pessaries, but she was not comfortable with these ,. Eventually we opted to do a colpocleisis and prophylactically placed a sling. She had seen Dr. Hill in the past and had had urodynamics with cystoscopy. This was consistent with urge incontinence as well as normal bladder mucosa. however, when I did the cystoscopy which is routine to be done during a sling procedure, she had extensive, severe bladder trabeculations. This is consistent with someone who may have had chronic infection or chronic urinary retention. Her surgical procedure was on May 25. Since that time she states she's been feeling well, however in the office last week stated that she just felt like he still had to go to the bathroom a lot. She states she makes it on time, but only has to go a small amount. Her postvoid residual in the past is been very minimal. At the time of her , preoperative appointment, her blood pressure was very high. I asked her to be seen by Dr. Nayak and have her blood pressures under control before we would schedule surgery. They changed her blood pressure medicines and we scheduled surgery how however, on May 20, when she was scheduled for the colpocleisis, the was discovered that she had been put on a new anti-inflammatory. Due to the nature of the procedure I asked that this be stopped for at least a week. She was then rescheduled for May 25. she had bacteriuria on her preop urinalysis and was started on antibiotics. This was continued with IV antibiotics and then oral antibiotics well and postoperatively. she was treated with Keflex pre-and postoperatively and Ancef as an inpatient. I spoke with Dr. Hill after her visit on06/29, and he suggested a trial of Vesicare again and then considering something else for the urgency. At the time of her visit on June 29 she is not having dysuria just frequency. but she was emptying her bladder. The patient had requested not to see Dr. Hill again as she had seen him in the past. She states she had felt slightly better with the vesicare but that she wasn't emptying well and had dry mouth. Currently she states she feels better. She does have a catheter indwelling. Microbiology 07/05/16 Blood Culture - Preliminary, Resulted Escherichia Coli 07/05/16 Blood Culture - Preliminary, Resulted Escherichia Coli 07/06/16 MRSA Screen - Final, Complete MRSA not isolated 07/05/16 Influenza Types A,B Antigen (LUCY) - Final, Complete 07/05/16 Urine Culture - Final, Complete Escherichia Coli Group B Streptococci Vital Signs 07/07/16 08:00 Temp 99.1 Pulse 71 Resp 20 B/P 140/75 Pulse Ox 94 O2 Delivery Room Air Laboratory Tests Test 07/05/16 22:45 07/05/16 23:08 07/05/16 23:25 07/06/16 03:55 Range/Units Activated Partial Thromboplast Time 30 36 H 24-35 SEC Alanine Aminotransferase (ALT/SGPT) 6 8 0-55 U/L Albumin 3.8 3.0 L 3.2-4.5 G/DL Alkaline Phosphatase 53 43 40-136 U/L Anion Gap 14 9 5-14 MMOL/L Aspartate Amino Transf (AST/SGOT) 12 11 5-34 U/L BUN/Creatinine Ratio 17 18 Band Neutrophils 6 % Basophils # (Auto) 0.0 0.0 0.0-0.1 10^3/uL Basophils % (Manual) 0 % Basophils (%) (Auto) 0 0 0-10 % Blood Morphology Comment NORMAL Blood Urea Nitrogen 41 H 37 H 7-18 MG/DL Calcium Level 8.8 8.0 L 8.5-10.1 MG/DL Carbon Dioxide Level 15 L 15 L 21-32 MMOL/L Chloride Level 106 113 H 98-107 MMOL/L Creatinine 2.46 H 2.08 H 0.60-1.30 MG/DL Eosinophils # (Auto) 0.0 0.0 0.0-0.3 10^3/uL Eosinophils % (Manual) 0 % Eosinophils (%) (Auto) 0 0 0-10 % Estimat Glomerular Filtration Rate 19 23 Glucose Level 166 H 105 70-105 MG/DL Hematocrit 40 34 L 35-52 % Hemoglobin 13.3 11.3 L 11.5-16.0 G/DL INR Comment 1.1 1.2 0.8-1.4 Lymphocytes # (Auto) 0.8 L 0.4 L 1.0-4.0 X 10^3 Lymphocytes % (Manual) 18 % Lymphocytes (%) (Auto) 6 L 4 L 12-44 % Mean Corpuscular Hemoglobin 30 30 25-34 PG Mean Corpuscular Hemoglobin Concent 33 33 32-36 G/DL Mean Corpuscular Volume 90 91 80-99 FL Mean Platelet Volume 10.5 H 9.6 7.4-10.4 FL Monocytes # (Auto) 2.4 H 1.0 0.0-1.0 X 10^3 Monocytes % (Manual) 3 % Monocytes (%) (Auto) 16 H 11 0-12 % Neutrophils # (Auto) 11.7 H 8.2 H 1.8-7.8 X 10^3 Neutrophils % (Manual) 69 % Neutrophils (%) (Auto) 78 H 85 H 42-75 % Platelet Count 194 147 130-400 10^3/uL Potassium Level 4.7 4.2 3.6-5.0 MMOL/L Prothrombin Time 13.4 15.2 H 12.2-14.7 SEC Reactive Lymphocytes 4 % Red Blood Count 4.42 3.78 L 4.35-5.85 10^6/uL Red Cell Distribution Width 13.2 13.1 10.0-14.5 % Sodium Level 135 137 135-145 MMOL/L Total Bilirubin 0.5 0.5 0.1-1.0 MG/DL Total Protein 6.2 L 5.2 L 6.4-8.2 G/DL White Blood Count 14.9 H 9.7 4.3-11.0 10^3/uL Lactic Acid Level 1.6 1.5 0.5-2.0 MMOL/L Urine Bacteria LARGE H /HPF Urine Bilirubin NEGATIVE NEGATIVE Urine Casts NONE /LPF Urine Clarity VERY CLOUDY H Urine Color BROWN H Urine Crystals NONE /LPF Urine Culture Indicated YES Urine Glucose (UA) NEGATIVE NEGATIVE Urine Ketones NEGATIVE NEGATIVE Urine Leukocyte Esterase 3+ H NEGATIVE Urine Mucus NEGATIVE /LPF Urine Nitrite NEGATIVE NEGATIVE Urine Protein 4+ NEGATIVE Urine RBC TNTC H /HPF Urine RBC (Auto) 5+ H NEGATIVE Urine Specific [place] 1.015 L 1.016-1.022 Urine Urobilinogen NORMAL NORMAL MG/DL Urine WBC TNTC H /HPF Urine pH 6 5-9 Magnesium Level 1.5 L 1.8-2.4 MG/DL Phosphorus Level 2.5 2.3-4.7 MG/DL Test 07/06/16 05:20 07/07/16 05:16 Range/Units Mayo Test NA Arterial Blood Base Excess -9.0 L -2.5-2.5 MMOL/L Arterial Blood HCO3 15 *L 23-27 MMOL/L Arterial Blood Oxygen Saturation 97 94-100 % Arterial Blood Partial Pressure CO2 26 L 35-45 MMHG Arterial Blood Partial Pressure O2 86 79-93 MMHG Arterial Blood Total CO2 15.5 L 21.0-31.0 MMOL/L Arterial Blood pH 7.38 7.37-7.43 Blood Gas Inspired Oxygen NOT INDICATED Blood Gas Patient Temperature 98.6 Blood Gas Puncture Site NOT INDICATED Blood Gas Ventilator Setting NA Activated Partial Thromboplast Time 38 H 24-35 SEC Alanine Aminotransferase (ALT/SGPT) < 6 0-55 U/L Albumin 2.7 L 3.2-4.5 G/DL Alkaline Phosphatase 45 40-136 U/L Anion Gap 6 5-14 MMOL/L Aspartate Amino Transf (AST/SGOT) 10 5-34 U/L BUN/Creatinine Ratio 19 Basophils # (Auto) 0.0 0.0-0.1 10^3/uL Basophils (%) (Auto) 0 0-10 % Blood Urea Nitrogen 30 H 7-18 MG/DL Calcium Level 8.0 L 8.5-10.1 MG/DL Carbon Dioxide Level 16 L 21-32 MMOL/L Chloride Level 117 H 98-107 MMOL/L Creatinine 1.56 H 0.60-1.30 MG/DL Eosinophils # (Auto) 0.0 0.0-0.3 10^3/uL Eosinophils (%) (Auto) 0 0-10 % Estimat Glomerular Filtration Rate 32 Glucose Level 104 70-105 MG/DL Hematocrit 31 L 35-52 % Hemoglobin 10.3 L 11.5-16.0 G/DL INR Comment 1.2 0.8-1.4 Lactic Acid Level 0.7 0.5-2.0 MMOL/L Lymphocytes # (Auto) 0.8 L 1.0-4.0 X 10^3 Lymphocytes (%) (Auto) 9 L 12-44 % Magnesium Level 2.0 1.8-2.4 MG/DL Mean Corpuscular Hemoglobin 31 25-34 PG Mean Corpuscular Hemoglobin Concent 33 32-36 G/DL Mean Corpuscular Volume 93 80-99 FL Mean Platelet Volume 9.8 7.4-10.4 FL Monocytes # (Auto) 1.2 H 0.0-1.0 X 10^3 Monocytes (%) (Auto) 14 H 0-12 % Neutrophils # (Auto) 6.5 1.8-7.8 X 10^3 Neutrophils (%) (Auto) 76 H 42-75 % Phosphorus Level 2.5 2.3-4.7 MG/DL Platelet Count 125 L 130-400 10^3/uL Potassium Level 4.0 3.6-5.0 MMOL/L Prothrombin Time 15.2 H 12.2-14.7 SEC Red Blood Count 3.38 L 4.35-5.85 10^6/uL Red Cell Distribution Width 13.4 10.0-14.5 % Sodium Level 139 135-145 MMOL/L Total Bilirubin 0.2 0.1-1.0 MG/DL Total Protein 5.0 L 6.4-8.2 G/DL White Blood Count 8.5 4.3-11.0 10^3/uL Allergies and Home Medications Allergies Coded Allergies: Penicillins (Verified Allergy, Severe, FACE/EYE SWELLING, 05/12/16) Home Medications Acetaminophen 650 Mg Tablet.er 1,300 MG PO HS (Reported) TAKES 2 (650MG) TABLETS Diphenhydramine HCl 25 Mg Capsule 25 MG PO BID (Reported) Enalapril Maleate 20 Mg Tablet 20 MG PO DAILY (Reported) Nebivolol HCl 5 Mg Tablet 5 MG PO DAILY (Reported) Omeprazole 40 Mg Capsule.dr 40 MG PO DAILY (Reported) Simvastatin 20 Mg Tablet 20 MG PO HS (Reported) Solifenacin Succinate 10 Mg Tablet 10 MG PO DAILY (Reported) Past Urhoigy-Vgpjtw-Zayiso Hx Patient Social History Alcohol Use: Denies Use Recreational Drug Use: No Smoking Status: Former Smoker Type Used: Cigarettes Recent Foreign Travel: No Contact w/Someone Who Travel: No Recent Infectious Disease Expo: No Recent Hopitalizations: No Physical Abuse Screen: No Sexual Abuse: No Immunizations Up To Date Date of Pneumonia Vaccine: Jun 07, 2012 Date of Influenza Vaccine: Apr 27, 2016 Seasonal Allergies Seasonal Allergies: Yes Surgeries HX Surgeries: Yes Surgeries: Bladder Surgery (vaginal colpocleisis and Solyx PV sling on 05/25/16 ), Hysterectomy (1994) Respiratory Hx Respiratory Disorders: No Cardiovascular Hx Cardiac Disorders: Yes Cardiac Disorders: High Cholesterol, Hypertension Neurological Hx Neurological Disorders: No Reproductive System : No Hx : 3 Hx Para: 3 (LC -2 (SIDS)) Hx Reproductive Disorders: Yes (GENITAL PROLAPSE) Sexually Transmitted Disease: No HIV/AIDS: No Genitourinary Hx Genitourinary Disorders: Yes (SYDNIE, ) Genitourinary Disorders: UTI-Chronic Gastrointestinal Hx Gastrointestinal Disorders: Yes (HAS TAKEN OMEPRAZOLE SINCE EGD WITH DILATION) Gastrointestinal Disorders: Gastroesophageal Reflux Musculoskeletal Hx Musculoskeletal Disorders: Yes Musculoskeletal Disorders: Arthritis, Chronic Back Pain Endocrine Hx Endocrine Disorders: No HEENT HX ENT Disorders: No (GLASSES, DENTURES) Loss of Vision: Bilateral Hearing Impairment: Denies Cancer Hx Cancer: No Psychosocial Hx Psychiatric Problems: No Integumentary HX Skin/Integumentary Disorder: No Blood Transfusions Hx Blood Disorders: No Adverse Reaction to a Blood Tr: No (N/A) Family Medical History Significant Family History: Cancer (aunt) Family Medial History: Cardiovascular disease 19 MOTHER (heart problems) Neoplasm G8 SISTER (cancer but does not know what kind) Osteoporosis G8 SISTER (polio as child) Review of Systems-General Constitutional: fever (none today) weakness Respiratory: no symptoms reported Cardiovascular: no symptoms reported Gastrointestinal: constipation Genitourinary: see HPI Musculoskeletal: back pain Skin: no symptoms reported Psychiatric/Neurological: No Symptoms Reported Physical Exam-General Problems Physical Exam Vital Signs Vital Sign - Last 12Hours 07/05/16 07/05/16 22:41 23:41 Temp 101.7 Pulse 100 Resp 20 B/P 156/71 Pulse Ox 98 O2 Delivery Room Air Capillary Refill : Less Than 3 Seconds General Appearance: WD/WN no apparent distress Assessment/Plan Assessment/Plan Admission Diagnosis/Plan 1. Sepsis due to UTI Culture + GBS Urine, E Coli Blood and urine Proper antibiotics are utilized. Continue per Dr. Royal. 2. urinary retention with likely chronic retention recent colpocleisis and bladder sling with may be exacerbating the problem. 3. Bladder trabeculations due to probable chronic retention. 4. Hypertension 5. Chronic renal insufficiency with acute renal failure Plan: I have asked Dr. Hill to consult for possible cystoscopy and help in management of urinary retention. Patient may need a suprapubic catheter or learn to self catheterize. In addition, she needs treatment for chronic UTIs. she would certainly benefit from a suprapubic catheter or self catheter due to the chronic vaginal irritation as well, so that she would not have to wear a depends all the time. I have been treating her for vulvar irritation due to the depends. Clinical Quality Measures DVT/VTE Risk/Contraindication: Risk Factor Score Per Nursin RFS Level Per Nursing on Admit: 2=Moderate TESFAYE KOTHARI DO Jul 07, 2016 10:57
[2016-07-07 12:00] VITALS: BP 146/67
--- NOTE | 2016-07-07 12:49 | Progress Note-Hospitalist ---
Standard Progress Note Progress Notes/Assess & Plan Date Seen 07/07/16 Diagnosis 1.urinary tract infection/sepsis. 2.recent surgery with suggestion of outlet obstruction Assess & Plan/Chief Complaint The patient reports that she feels better today. She continues to run a fever and at 0421 this morning had a 101.7. Her white count has fallen from 14,000 908,500. With hydration her creatinine has improved from 2.08-1.56. She has grown Escherichia coli from both blood and urine. The sensitivity show wide range. She is also been seen by Dr. Dubon who had recently done surgery. She was also seen by Dr. Hill. Discussions are underway relative to management but may include home catheterization by the patient. Physical exam: She is alert and her color is better than yesterday. Lungs are clear to auscultation. CV is regular without murmur. Abdomen is soft. Extremities show no pedal edema. Impression: Urinary tract infection/sepsis. 2.recent surgery for vaginal prolapse. Plan: Continue IV antibiotics for at least 2 more days. At that time we may be able to consider home on oral medications. Appreciate input from consultants. Labs Laboratory Tests 07/05/16 22:45 07/06/16 03:55 07/07/16 05:16 ABRAHAM SOSA MD Jul 07, 2016 12:49
--- NOTE | 2016-07-07 13:10 | CONSULTATION REPORT ---
DATE OF CONSULTATION: 07/07/2016 ATTENDING PHYSICIAN: Dr. Dubon. SUMMARY: This is a 76-year-old white lady previously seen by me because of overactive bladder with frequency and urgency, and some incontinence, was put VESIcare and Premarin vaginal cream. She did not follow-up at the office, was not very compliant with her medicine. She ended up seeing Dr. Dubon who did a procedure on her and a sling and scoped her at that time and so trabeculation and chronic changes. She was admitted to the hospital with sepsis due to UTI. She was found to have retention acute on top of chronic. Some chronic renal insufficiency with acute on top of chronic. She has a Landa catheter now. She feels better. She is doing better. IMPRESSION: 1. Urinary retention post colpocleisis and sling. 2. Chronic retention with acute on top of chronic. 3. Chronic renal insufficiency with acute on top of chronic. PLAN: We will discontinue the Landa catheter. We will do a bladder scan postvoid residual and manage accordingly. Job ID: [id number] Dictated Date: 07/07/2016 12:31:45 Certified Endoscopy Technician Date: 07/07/2016 13:01:50/deonna
[2016-07-07] MEDS: ENOXAPARIN 30 MG/0.3 ML (LOVENOX) SYR SC SCH (13:42)
[2016-07-07 15:35] VITALS: BP 187/75
[2016-07-07] MEDS: TROSPIUM 20 MG (SANCTURA) TAB PO SCH (16:17)
[2016-07-07 19:15] VITALS: BP 186/73
[2016-07-07] MEDS: cefTRIAXone 1 GM/NS 50 ML IVPB IV SCH ×2 (21:48)
[2016-07-07] MEDS: SIMvastatin 20 MG (ZOCOR) TAB PO SCH (21:49)
[2016-07-08] VITALS: BP 173/76
[2016-07-08] MEDS: NS IV 1000 ML 1,000 ML IV SCH ×2 (00:47→14:51)
[2016-07-08] MEDS ORDERED: FUROSEMIDE 40 MG/4 ML INJ (LASIX) IVP ONE (01:45)
[2016-07-08] MEDS ORDERED: RT-ALBUTEROL SULF 2.5 MG/3 ML PRE-MIX VIAL INH PRN (03:00)
[2016-07-08 04:00] VITALS: BP 170/83
[2016-07-08] MEDS: PANTOPRAZOLE 40 MG (PROTONIX) TAB PO SCH (05:23)
[2016-07-08] MEDS: TROSPIUM 20 MG (SANCTURA) TAB PO SCH ×2 (05:23→15:48)
[2016-07-08 06:38] LABS: ALBUMIN 3.4 G/DL (3.2-4.5); BILIRUBIN,TOTAL 0.2 MG/DL (0.1-1.0); CALCIUM 9.4 MG/DL (8.5-10.1); CREATININE SERUM 1.58 MG/DL (0.60-1.30); MAGNESIUM 1.8 MG/DL (1.8-2.4); PHOSPHORUS 2.9 MG/DL (2.3-4.7); POTASSIUM 4.2 MMOL/L (3.6-5.0); TOTAL PROTEIN 6.6 G/DL (6.4-8.2)
[2016-07-08 06:48] LABS: BASOPHILS % (AUTO) 0 % (0-10); EOSINOPHILS % (AUTO) 0 % (0-10); LYMPHOCYTES % (AUTO) 9 % (12-44); MEAN CORPUSCULAR HEMOGLOBIN 30 PG (25-34); MEAN CORPUSCULAR HGB CONC 33 G/DL (32-36); MEAN CORPUSCULAR VOLUME 91 FL (80-99); MEAN PLATELET VOLUME 10.1 FL (7.4-10.4); MONOCYTES # (AUTO) 1.3 X 10^3 (0.0-1.0); MONOCYTES % (AUTO) 11 % (0-12); NEUTROPHILS # (AUTO) 8.9 X 10^3 (1.8-7.8); NEUTROPHILS % (AUTO) 79 % (42-75); PLATELET COUNT 163 10^3/uL (130-400); RED BLOOD COUNT 4.11 10^6/uL (4.35-5.85); RED CELL DISTRIBUTION WIDTH 13.3 % (10.0-14.5); WHITE BLOOD COUNT 11.2 10^3/uL (4.3-11.0)
[2016-07-08] MEDS: RT-ALBUTEROL SULF 2.5 MG/3 ML PRE-MIX VIAL INH SCH ×3 (06:49→18:37)
[2016-07-08 07:00] LABS: PROTHROMBIN TIME PATIENT 13.1 SEC (12.2-14.7)
[2016-07-08 08:00] VITALS: BP 149/70
[2016-07-08] MEDS: ENALAPRIL 10 MG (VASOTEC) TAB PO SCH (08:28)
[2016-07-08] MEDS: NEBIVOLOL 5 MG TAB (BYSTOLIC) PO SCH (08:28)
[2016-07-08] MEDS: ACETAMINOPHEN 325 MG TABLET/CAPLET (TYLENOL) PO PRN ×2 (08:34→20:51)
--- NOTE | 2016-07-08 09:15 | Diagnostic Imaging Report ---
EXAMINATION: Portable semiupright radiograph of the chest. INDICATION: Severe sepsis. COMPARISON: 07/07/2016. FINDINGS: The lungs are hyperinflated. There is mild prominence of the interstitial markings, similar to the prior exam, likely chronic. No effusion or pneumothorax. The heart size is borderline enlarged. IMPRESSION: No acute process. Dictated by: Dictated on workstation # [id number]
--- NOTE | 2016-07-08 10:43 | Progress Note-Hospitalist ---
Progress Note HPI/CC on Admission The patient is a 76-year-old white female who presented to the emergency room last night by ambulance. Her family had found her at home extremely weak and unable to get out of the chair. She had become ill the night before. Historically she had a vaginal prolapse and had a surgical procedure including a bladder sling on 05/26/[address] Raquel Dubon. She had been dismissed with a catheter and after its removal had been instructed to report any difficulties with urination. Apparently she had not. She somewhat unconvincing later tells me that she was not ill until Wednesday07/04/16 but had had to get up to urinate at about hourly intervals for several days. Progress Notes/Assess & Plan Date Seen 07/08/16 Diagonsis/Assessment & Plan Chart Review: Remains Febrile at 101 but now rare occurrence WBC 11.2 up from 8.5 Severe sepsis managed with IVF resuscitation Creat 1.58 as yesterday Ucx shows E. coli diaz-sensitive and both blood cultures the same organism Pt on Rocephin and Dr. Dubon and Dr. Hill provided consultation guidance I conferred with Dr Hill so will order bladder scanning and evaluate for retention and may need Urecholine Patient Interview: Pt states that she feels better, but not fully recovered. Pt states that she is still unable to urinate without complications. Pt is having regular BMs. Physical exam was stable. Pt's PCP is Dr. Nayak Pt states that she normally ambulates without assistance at home, but currently requires assistance. Pt has been receiving breathing treatments. Pt lives with aunt. Pt denies having any pain currently. Max fever of 101.0 Vital signs stable, pleasant, chronically ill, pale, slow to respond at times Regular rate and rhythm, clear to auscultation bilaterally No edema Assessment: Severe sepsis status post IV fluid resuscitation and antibiotic coverage for Escherichia coli bacteremia with sepsis Severe urinary retention consulted urology and Dr. Dubon Hypertension Hyperlipidemia Plan: PT/OT In-patient rehab consult Consult with Dr. Hill and Dr. Nayak. Swingbed? Abx Rocephin Scribed by Dorian Torrez under the direct supervision of Dr. Hale. ERICKA HALE DO Jul 08, 2016 10:43
--- NOTE | 2016-07-08 11:00 | Progress Note-Urology ---
Progress Note-Urology Progress Notes/Assess & Plan Progress/Assessment & Plan STILL NOT VOIDING WELL ON OWN. PLAN PER ORDERS. Final Diagnosis URINE RETENTION, UTIS, INCONTINENCE BRANDIN WELDON MD Jul 08, 2016 11:00 am
[2016-07-08 12:00] VITALS: BP 148/70
[2016-07-08] MEDS: ENOXAPARIN 30 MG/0.3 ML (LOVENOX) SYR SC SCH (13:11)
--- NOTE | 2016-07-08 13:13 | Occupational Therapy Eval ---
OT Evaluation-General/PLF Medical Diagnosis Admission Date Jul 06, 2016 at 00:27 Medical Diagnosis: UTI, recent sx with suggestion of outlet obstruction Onset Date: Jul 06, 2016 Therapy Diagnosis Therapy Diagnosis: Weakness, Decreased ADL skills Height/Weight Height (Feet): 5 Height (Inches): 7.00 Weight (Pounds): 158 Weight (Ounces): 6.0 Precautions Precautions/Isolations: Fall Prevention, Standard Precautions Safety Interventions: None Weight Bear Status Weight Bearing Restriction: Weight Bearing/Tolerated Referral Physician: Dr. Ko Referral Reason: Activity Tolerance, Self Care, Evaluation/Treatment, Strengthening/ROM Medical History Pertinent Medical History: HTN Additional Medical History vaginal prolapse, bladder sx, UTI Current History Pt. lives with her aunt. Together they live across the street from her son in law and daughter. Was independent with everything previous to this hospitalization. Family found her at home in her chair. Unable to get up. Reviewed History: Yes Social History Home: Single Level Current Living Status: Other Family Entry Into Home: Level Entry ADL-Prior Level of Function ADL PLOF Comments Pt. was independent with daily tasks previous to this hospitalization. Pt. still drives. DME/Equipment: Shower DME/Equipment Comments Pt. has a walker, but does not use it. Has no other equipment. Drive Self: Yes OT Current Status Subjective No pain reported. Appearance Pt. is in bed. Agrees to OT evaluation. Mental Status/Objective Patient Orientation: Person, Place, Time, Situation Current Glasses/Contacts: Yes Hearing Aids: No Dentures/Partials: Yes Hand Dominance: Right Upper Extremity ROM WFL Upper Extremity Coordination intact Upper Extremity Strength 3+/5 bilaterally WFL ADL-Treatment Functional [place] Measure 0=Not Assessed/NA 4=Minimal Assistance 1=Total Assistance 5=Supervision or Setup 2=Maximal Assistance 6=Modified [place] 3=Moderate Assistance 7=Complete IndependenceIRFPAI Quality Coding Scale 6 Independent with activity with or without an assistive device 5 Patient requires set up or clean up by helper. Patient completes activity by themselves 4 Supervision or touching assist (CGA). Dewey provide cues , steadying assist 3 The helper provides less than half the effort to complete the activity 2 The helper provides more than half the effort to complete the activity 1 Dependent. The helper does all the effort to complete an activity 7 Patient refused to complete or attempt activity 9 The patient did not perform the activity before the current illness or injury 88 Not attempted due to Medical conditions or safety concerns Lower Body Dressing (FIM): 5 (Pt. is able to doff/don socks with SBA while seated on side of bed.) Transfers (B, C, W/C) (FIM): 5 (Pt. transfers supine-sit and sit-stand. Was able to transfer back to bed with SBA.) Other Treatments Pt. was able to transfer to side of bed with SBA. Is able to doff/don socks with SBA. Is able to stand and sit back down, get legs into bed with SBA. Tolerated treatment well. Pt. and family states that she already showered this date. Was able to get herself into shower with SBA and had no difficulty per her. Will continue to see pt. while in hospital to increase overall strength with daily tasks and UE strength. Education OT Patient Education: Modified ADL techniques, Progress toward Goal/Update tx plan, Purpose of tx/functional activities, Reviewed precautions, Rehab process, Transfer techniques Teaching Recipient: Patient Teaching Methods: Demonstration, Discussion Response to Teaching: Verbalize Understanding, Return Demonstration OT Short Term Goals Short Term Goals 1=Demonstrate adherence to instructed precautions during ADL tasks. 2=Patient will verbalize/demonstrate understanding of assistive devices/ modifications for ADL. 3=Patient will improve strength/tolerance for activity to enable patient to perform ADL's. OT Mcfp Goals Digital Performance Analyst Goals Time Frame: 2 weeks Eating (FIM): 6 Grooming(FIM): 6 Bathing(FIM): 6 Upper Body Dressing(FIM): 6 Lower Body Dressing(FIM): 6 Toileting(FIM): 6 Transfers (B,C,W/C) (FIM): 6 Toilet/Commode Transfer(FIM): 6 Shower Transfer(FIM): 5 Additional Goals: 1-Demonstrate ADL Tasks, 2-Verbalize Understanding, 3- ImproveStrength/Stormy 1=Demonstrate adherence to instructed precautions during ADL tasks. 2=Patient will verbalize/demonstrate understanding of assistive devices/ modifications for ADL. 3=Patient will improve strength/tolerance for activity to enable patient to perform ADL's. OT Education/Plan Problem List/Assessment Assessment: Decreased Activ Tolerance, Impaired I ADL's, Impaired Self-Care Skills Discharge Recommendations Plan/Recommendations: Continue POC Therapy D/C Recommendations: Home w/ Family Support, Occupational Therapy Home Care Equpiment Recommendations-D/C: Bath Chair Target Placement Home with family support and home health therapy as necessary. Treatment Plan/Plan of Care Treatment,Training & Education: Yes Patient would benefit from OT for education, treatment and training to promote independence in ADL's, mobility, safety and/or upper extremity function for ADL' s. Plan of Care: ADL Retraining, Functional Mobility, UE Funct Exercise/Act Treatment Duration: Jul 22, 2016 # of days/week 5-6 Visits Per Week: 5-6 Agreement: Yes Rehab Potential: Good Time/GCodes Start Time: 12:45 Stop Time: 13:00 Total Time Billed (hr/min): 15 Billed Treatment Time 1, VERONICA Castro OT Jul 08, 2016 13:13
--- NOTE | 2016-07-08 15:36 | Physical Therapy Evaluation ---
PT Evaluation-General Medical Diagnosis Admission Date Jul 06, 2016 at 00:27 Medical Diagnosis: UTI, recent sx with suggestion of outlet obstruction Onset Date: Jul 06, 2016 Therapy Diagnosis Therapy Diagnosis: impaired mobility, endurance, strength Height/Weight Height (Feet): 5 Height (Inches): 7.00 Weight (Pounds): 158 Weight (Ounces): 6.0 Precautions Precautions/Isolations: Fall Prevention, Standard Precautions Weight Bear Status Weight Bearing Restriction: Weight Bearing/Tolerated Referral Physician: Dr. Ko Reason for Referral: Evaluation/Treatment Medical History Pertinent Medical History: Arthritis, GERD, HTN Additional Medical History former smoker, high cholesterol, genital prolapse, UTI-chronic, chronic back pain, surg (bladder, hysterectomy) Current History went to ER by ambulance, family found her extremely weak and unable to get out of the chair Reviewed History: Yes Social History Home: Single Level Current Living Status: Other Family Entry Into Home: Stairs With Railing Patient states she has 3 steps to enter through the garage and a handrail. Prior/Core FIM Prior Level of Function Functional [place] Measure 0=Not Assessed/NA 4=Minimal Assistance 1=Total Assistance 5=Supervision or Setup 2=Maximal Assistance 6=Modified [place] 3=Moderate Assistance 7=Complete [place] Bed Mobility: 7 Transfers (B,C,W/C) (FIM): 7 Gait: 7 PT Evaluation-Current Subjective Patient on commode. She refuses to ambulate or perform exercises but will let therapist help her transfer back to the bed and into bed. She has no complaints of pain. Pt/Family Goals "to go home" Objective Patient Orientation: Person, Place, Situation Attachments: Oxygen, IV Patient answers questions appropriately but with very short answers, seems agitated. ROM/Strength ROM Lower Extremities WNL Strenght Lower Extremities 4/5 gross strength bilateral lower extremities Integumentary/Posture Bowel Incontinence: No Bladder Incontinence: No Neuromuscular (Tone, Coordination, Reflexes) WNL Sensory Vision: Functional Hearing: Functional Hand Dominance: Right Sensation Right Lower Extremit: Intact Sensation Left Lower Extremity: Intact Transfers Functional [place] Measure 0=Not Assessed/NA 4=Minimal Assistance 1=Total Assistance 5=Supervision or Setup 2=Maximal Assistance 6=Modified [place] 3=Moderate Assistance 7=Complete [place] Transfers (B, C, W/C) (FIM): 4 Scootin Rollin Supine to/from Sit: 5 Sit to/from Stand: 4 (CGA) Appropriate use of hands Balance Sitting Static: Normal Sitting Dynamic: Normal Standing Static: Good Standing Dynamic: Good Assessment/Needs Patient has impaired mobility, strength, endurance. She refused to perform anything other than a transfer from a bedside commode to the bed and then into bed. Rehab Potential: Fair PT Fpc Goals Fpc Goals PT Network Director Goals Time Frame: Jul 15, 2016 Transfers (B,C,W/C) (FIM): 5 Gait (FIM): 5 Distance: 150' Gait Level of Assist: 5 Gait Assistive Device: FWW PT Plan Problem List Problem List: Activity Tolerance, Functional Strength, Safety, Balance, Gait, Transfer, Bed Mobility Treatment/Plan Treatment Plan: Continue Plan of Care Treatment Plan: Bed Mobility, Education, Functional Activity Stormy, Functional Strength, Gait, Safety, Therapeutic Exercise, Transfers Treatment Duration: Jul 15, 2016 # of days/week 5-6 Visits Per Week: 5-6 Minutes/Day (M-F): 15-30 Minutes/Day (Sat/Barrett): 15-30 Pt/Family Agrees w/Plan: Yes Safety Risks/Education Patient Education: Transfer Techniques, Safety Issues Teaching Recipient: Patient Teaching Methods: Demonstration, Discussion Response to Teaching: Reinforcement Needed Discharge Recommendations Plan Patient will perform bed mobility and transfer training, balance and endurance training, functional strengthening, stair training, gait training, education, to improve functional mobility and independence at home. Therapy D/C Recommendations: Home w/ Family Support Time/GCodes Time In: 1510 Time Out: 1525 Total Billed Treatment Time: 15 Total Billed Treatment 1 visit EVL 15 min RACHEL MAYNARD PT Jul 08, 2016 15:36
[2016-07-08] MEDS: BETHANECHOL 25 MG (URECHOLINE) TAB PO SCH ×2 (15:48→20:51)
[2016-07-08 16:40] VITALS: BP 125/78
[2016-07-08 19:30] VITALS: BP 159/76
[2016-07-08] MEDS: SIMvastatin 20 MG (ZOCOR) TAB PO SCH (20:51)
[2016-07-08] MEDS ORDERED: cefTRIAXone 1 GM/NS 50 ML IVPB IV SCH ×2 (21:00)
[2016-07-09] VITALS: BP 142/68
[2016-07-09 04:00] VITALS: BP 138/74
[2016-07-09 04:43] LABS: BASOPHILS % (AUTO) 0 % (0-10); EOSINOPHILS % (AUTO) 0 % (0-10); LYMPHOCYTES % (AUTO) 11 % (12-44); MEAN CORPUSCULAR HEMOGLOBIN 30 PG (25-34); MEAN CORPUSCULAR HGB CONC 33 G/DL (32-36); MEAN CORPUSCULAR VOLUME 92 FL (80-99); MONOCYTES % (AUTO) 11 % (0-12); NEUTROPHILS # (AUTO) 7.4 X 10^3 (1.8-7.8); NEUTROPHILS % (AUTO) 78 % (42-75); PLATELET COUNT 160 10^3/uL (130-400); RED BLOOD COUNT 3.67 10^6/uL (4.35-5.85); RED CELL DISTRIBUTION WIDTH 13.6 % (10.0-14.5); WHITE BLOOD COUNT 9.5 10^3/uL (4.3-11.0)
[2016-07-09] MEDS: NS IV 1000 ML 1,000 ML IV SCH (04:52)
[2016-07-09 05:04] LABS: ALBUMIN 3.1 G/DL (3.2-4.5); BILIRUBIN,TOTAL 0.2 MG/DL (0.1-1.0); CALCIUM 8.9 MG/DL (8.5-10.1); CREATININE SERUM 1.73 MG/DL (0.60-1.30); MAGNESIUM 1.6 MG/DL (1.8-2.4); PHOSPHORUS 3.3 MG/DL (2.3-4.7); POTASSIUM 3.3 MMOL/L (3.6-5.0); TOTAL PROTEIN 6.1 G/DL (6.4-8.2)
[2016-07-09 05:05] LABS: INR 1.1 (0.8-1.4); PROTHROMBIN TIME PATIENT 13.4 SEC (12.2-14.7)
[2016-07-09] MEDS: BETHANECHOL 25 MG (URECHOLINE) TAB PO SCH ×2 (05:13→11:29)
[2016-07-09] MEDS: PANTOPRAZOLE 40 MG (PROTONIX) TAB PO SCH (05:13)
[2016-07-09] MEDS: TROSPIUM 20 MG (SANCTURA) TAB PO SCH (05:13)
[2016-07-09] MEDS: RT-ALBUTEROL SULF 2.5 MG/3 ML PRE-MIX VIAL INH SCH (07:33)
[2016-07-09 08:00] VITALS: BP 124/69
[2016-07-09] MEDS: NEBIVOLOL 5 MG TAB (BYSTOLIC) PO SCH (08:36)
[2016-07-09] MEDS: ENALAPRIL 10 MG (VASOTEC) TAB PO SCH (08:36)
[2016-07-09] MEDS ORDERED: LACTULOSE SYRUP 10GM/15ML (ENULOSE) 30ML UDC PO SCH (10:15)
--- NOTE | 2016-07-09 10:52 | Discharge Summary-Hospitalist ---
Diagnosis/Chief Complaint Date of Admission Jul 06, 2016 at 00:27 Date of Discharge Admission Diagnosis 1.urinary tract infection/sepsis. 2.recent surgery with suggestion of outlet obstruction Discharge Diagnosis 1.urinary tract infection/sepsis. 2.recent surgery with suggestion of outlet obstruction Chart Review: Remains Febrile at 101 but now rare occurrence WBC 11.2 up from 8.5 Severe sepsis managed with IVF resuscitation Creat 1.58 as yesterday Ucx shows E. coli diaz-sensitive and both blood cultures the same organism Pt on Rocephin and Dr. Dubon and Dr. Hill provided consultation guidance I conferred with Dr Hill so will order bladder scanning and evaluate for retention and may need Urecholine Patient Interview: Pt states that she feels better, but not fully recovered. Pt states that she is still unable to urinate without complications. Pt is having regular BMs. Physical exam was stable. Pt's PCP is Dr. Nayak Pt states that she normally ambulates without assistance at home, but currently requires assistance. Pt has been receiving breathing treatments. Pt lives with aunt. Pt denies having any pain currently. Max fever of 101.0 Vital signs stable, pleasant, chronically ill, pale, slow to respond at times Regular rate and rhythm, clear to auscultation bilaterally No edema Assessment: Severe sepsis status post IV fluid resuscitation and antibiotic coverage for Escherichia coli bacteremia with sepsis Severe urinary retention consulted urology and Dr. Dubon Hypertension Hyperlipidemia Plan: PT/OT In-patient rehab consult Consult with Dr. Hill and Dr. Nayak. Swingbed? Abx Rocephin Scribed by Dorian Torrez under the direct supervision of Dr. Hale. Reason Hospital Visit/Course The patient is a 76-year-old white female who presented to the emergency room last night by ambulance. Her family had found her at home extremely weak and unable to get out of the chair. She had become ill the night before. Historically she had a vaginal prolapse and had a surgical procedure including a bladder sling on 05/26/[address] Raquel Dubon. She had been dismissed with a catheter and after its removal had been instructed to report any difficulties with urination. Apparently she had not. She somewhat unconvincing later tells me that she was not ill until Wednesday07/04/16 but had had to get up to urinate at about hourly intervals for several days. 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 Patient Interview: Pt denies using home O2 Pt feels that she is breathing well Pt denies having BM for a few days. Pt has been eating. Physical exam reveals possible fluid on lungs, will check CXR. Pt denies hx of CAD. Fever 100.8, pleasant, oriented 3, wearing O2 but does not wear it at home Crackles in the bases consistent with volume overload, no tachypnea noted No edema Laboratory Tests 07/09/16 04:28 Plan: CXR Add BNP to todays labs Replace K+ Heplock IVF Lasix 20mg once IV for presumed volume overload and check BNP Lactulose for constipation Swingbed today Scribed by Dorian Torrez under the direct supervision of Dr. Hale. This is a 76-year-old white female that had a lengthy hospital course due to severe sepsis from UTI and outlet obstruction likely due to neurogenic bladder status post recent gynecological surgery by Dr. Dubon. Dr. Dubon and urology were consulted regarding the the situation and IV fluid resuscitation consistent with severe sepsis was initiated along with broad-spectrum antibiotics. She was found to have Escherichia coli in all blood cultures and urine culture so patient was changed to Rocephin with good coverage. She had significant weakening and debility that required some swing bed with therapies and to also continue IV antibiotics due to the severity of her pyelonephritis. Catheter was initiated in/out as needed but she remained incontinent for most of the time. To note her creatinine had risen to 1.73 a day of discharge unsure of why that occurred but she did have crackles on lung exam and checking chest x-ray and BNP and empirically giving Lasix 20 MG IV 1 and will closely monitor creatinine and potassium since we are supplementing oral potassium. Overall due to the severity of her illness and debility her prognosis is guarded but hopefully we can support this patient in any way possible to eventually return back home to live with her aunt and to try to prevent recurrent infection. Discharge Summary Discharge Physical Examination Allergies: Coded Allergies: Penicillins (Verified Allergy, Severe, FACE/EYE SWELLING, 05/12/16) Vitals & I&Os Vital Signs Date Time Temp Pulse Resp B/P Pulse Ox O2 Delivery O2 Flow Rate FiO2 07/09/16 08:00 100 2.00 07/09/16 08:00 100.5 108 20 124/69 Room Air Hospital Course Labs (last 24 hrs) Laboratory Tests 07/09/16 04:28: Activated Partial Thromboplast Time 37H, Alanine Aminotransferase (ALT/SGPT) 9, Albumin 3.1L, Alkaline Phosphatase 55, Anion Gap 11, Aspartate Amino Transf (AST /SGOT) 13, B-Type Natriuretic Peptide 2332.8H, BUN/Creatinine Ratio 15, Basophils # (Auto) 0.0, Basophils (%) (Auto) 0, Blood Urea Nitrogen 26H, Calcium Level 8.9, Carbon Dioxide Level 16L, Chloride Level 111H, Creatinine 1.73H, Eosinophils # (Auto) 0.0, Eosinophils (%) (Auto) 0, Estimat Glomerular Filtration Rate 29, Glucose Level 128H, Hematocrit 34L, Hemoglobin 11.0L, INR Comment 1.1, Lactic Acid Level 1.3, Lymphocytes # (Auto) 1.0, Lymphocytes (%) ( Auto) 11L, Magnesium Level 1.6L, Mean Corpuscular Hemoglobin 30, Mean Corpuscular Hemoglobin Concent 33, Mean Corpuscular Volume 92, Mean Platelet Volume 10.0, Monocytes # (Auto) 1.0, Monocytes (%) (Auto) 11, Neutrophils # ( Auto) 7.4, Neutrophils (%) (Auto) 78H, Phosphorus Level 3.3, Platelet Count 160 , Potassium Level 3.3L, Prothrombin Time 13.4, Red Blood Count 3.67L, Red Cell Distribution Width 13.6, Sodium Level 138, Total Bilirubin 0.2, Total Protein 6.1L, White Blood Count 9.5 Microbiology 07/05/16 Blood Culture - Preliminary, Resulted Escherichia Coli 07/06/16 MRSA Screen - Final, Complete MRSA not isolated 07/05/16 Urine Culture - Final, Complete Escherichia Coli Group B Streptococci Pending Labs Laboratory Tests 07/09/16 04:28: Activated Partial Thromboplast Time 37, Alanine Aminotransferase (ALT/SGPT) 9, Albumin 3.1, Alkaline Phosphatase 55, Anion Gap 11, Aspartate Amino Transf (AST/ SGOT) 13, B-Type Natriuretic Peptide 2332.8, BUN/Creatinine Ratio 15, Basophils # (Auto) 0.0, Basophils (%) (Auto) 0, Blood Urea Nitrogen 26, Calcium Level 8.9 , Carbon Dioxide Level 16, Chloride Level 111, Creatinine 1.73, Eosinophils # ( Auto) 0.0, Eosinophils (%) (Auto) 0, Estimat Glomerular Filtration Rate 29, Glucose Level 128, Hematocrit 34, Hemoglobin 11.0, INR Comment 1.1, Lactic Acid Level 1.3, Lymphocytes # (Auto) 1.0, Lymphocytes (%) (Auto) 11, Magnesium Level 1.6, Mean Corpuscular Hemoglobin 30, Mean Corpuscular Hemoglobin Concent 33, Mean Corpuscular Volume 92, Mean Platelet Volume 10.0, Monocytes # (Auto) 1.0, Monocytes (%) (Auto) 11, Neutrophils # (Auto) 7.4, Neutrophils (%) (Auto) 78, Phosphorus Level 3.3, Platelet Count 160, Potassium Level 3.3, Prothrombin Time 13.4, Red Blood Count 3.67, Red Cell Distribution Width 13.6, Sodium Level 138, Total Bilirubin 0.2, Total Protein 6.1, White Blood Count 9.5 Discharge Home Medications: Active Scripts Active Reported Vesicare (Solifenacin Succinate) 10 Mg Tablet 10 Mg PO DAILY Simvastatin 20 Mg Tablet 20 Mg PO HS Enalapril Maleate 20 Mg Tablet 20 Mg PO DAILY Omeprazole 40 Mg Capsule.dr 40 Mg PO DAILY Acetaminophen 8 Hour (Acetaminophen) 650 Mg Tablet.er 1,300 Mg PO HS TAKES 2 (650MG) TABLETS Benadryl (Diphenhydramine HCl) 25 Mg Capsule 25 Mg PO BID Bystolic (Nebivolol HCl) 5 Mg Tablet 5 Mg PO DAILY Instructions to patient/family Please see electonic discharge instructions given to patient. Clinical Quality Measures DVT/VTE Risk/Contraindication: Risk Factor Score Per Nursin RFS Level Per Nursing on Admit: 2=Moderate ERICKA HALE DO Jul 09, 2016 10:52
[2016-07-09] MEDS ORDERED: FUROSEMIDE 40 MG/4 ML INJ (LASIX) IVP NR (11:14)
--- NOTE | 2016-07-09 12:40 | Diagnostic Imaging Report ---
Exam: PA and lateral views of the chest. Indication: Shortness of breath. Findings: There is prominence of interstitial markings, probably related to vascular congestion associated with small pleural effusions. The heart size is near the upper limits of normal. No pneumothorax. The mediastinum and nikki appear unremarkable. IMPRESSION: There is mild pulmonary vascular congestion with small bilateral effusions. Dictated by: Dictated on workstation # [id number]
[2016-07-09] MEDS ORDERED: KCL 20 MEQ TAB (K-DUR) PO SCH (21:00)
[2016-07-10] MEDS ORDERED: FUROSEMIDE 40 MG/4 ML INJ (LASIX) IVP SCH (09:00)
--- NOTE | 2016-07-14 15:30 | Diagnostic Imaging Report ---
EXAMINATION: Portable upright radiograph of the chest. INDICATION: Sepsis. COMPARISON: 07/09/2016. FINDINGS: There is mild pulmonary vascular congestion with no focal infiltrate. No effusion or pneumothorax. The mediastinum and nikki appear unremarkable. IMPRESSION: Pulmonary vascular congestion. Dictated by: Dictated on workstation # [id number]
== END 2016-07-09 11:39 | disposition swing bed (61) | DRG 872 ==
LOC: EDUNIT# 22:34 → ER 22:35 → ICU 07-06 00:27 → 4TH 07-06 10:45
PROVIDERS: ADMIT Internal Medicine; ATTEND Internal Medicine
DX: A41.51 Sepsis due to Escherichia coli [E. coli] (principal); R65.20 Severe sepsis without septic shock; N17.9 Acute kidney failure, unspecified; N39.0 Urinary tract infection, site not specified; N13.8 Other obstructive and reflux uropathy; R33.9 Retention of urine, unspecified; N32.89 Other specified disorders of bladder; I12.9 Hypertensive chronic kidney disease with stage 1 through stage 4 chronic kidney disease, or unspecified chronic kidney disease; N28.9 Disorder of kidney and ureter, unspecified; Z87.891 Personal history of nicotine dependence; E78.5 Hyperlipidemia, unspecified; K21.9 Gastro-esophageal reflux disease without esophagitis; M19.91 Primary osteoarthritis, unspecified site; M54.9 Dorsalgia, unspecified
CPT/HCPCS: 36415; 51702; 71010; 71020; 80053; 81000; 82805; 83605; 83735; 83880; 84100; 85007; 85025; 85027; 85610; 85730; 87040; 87077; 87081; 87088; 87186; 87804; 94640; 94760; 96361; 96365; 96367

== ENCOUNTER 2016-07-09 08:43 | Inpatient (IN) | payer MEDICARE, OTHER ==
[~2016-07-09] VITALS: Ht 170.2 cm; Wt 71.8 kg
[~2016-07-09 08:43] MED LIST changes: +ACET-2429 PO; +OMEP40CA36 PO; +SOLI10TA2 PO
[2016-07-09] MEDS ORDERED: ENOXAPARIN 30 MG/0.3 ML (LOVENOX) SYR SC SCH (11:45)
[2016-07-09] MEDS ORDERED: ONDANSETRON 4 MG/2 ML (SDV) Z0FRAN IV PRN (11:45)
[2016-07-09] MEDS ORDERED: CATHETER FLUSH 10 ML SYR IV PRN (11:45)
[2016-07-09] MEDS ORDERED: RT-ALBUTEROL SULF 2.5 MG/3 ML PRE-MIX VIAL INH PRN (11:45)
[2016-07-09] MEDS ORDERED: ACETAMINOPHEN 650 MG SUPP (TYLENOL) PR PRN (11:45)
--- NOTE | 2016-07-09 12:03 | Progress Note-Urology ---
Progress Note-Urology Progress Notes/Assess & Plan Progress/Assessment & Plan VOIDING ON OWN, TOLERATED URECHOLINE WELL, SCANS UNDER 450CC, WE WILL STRAIGHT CATH TODAY TO GET RID OF RESIDUAL, AND ALSO STRAIGH CATH IF PVR OVER 400C Final Diagnosis URINE RETENTION BRANDIN WELDON MD Jul 09, 2016 12:03
--- OUTSIDE RECORDS SUMMARY | 2016-07-09 12:04 | XMS REPORT | Continuity of Care Document ---
Author Author [facility] Organization [facility] Address Unknown Phone Unavailable Care Team Providers Care Pulp Drier Firer Name Role Phone EVAN MURO MD PCP Insurance Providers Payer Name Policy Number Subscriber Name Relationship [employer] [id number] Jessica Yu 18 Self / Same As Patient Comm Crossover Enter Ins Name [id number] Jessica Yu 18 Self / Same As Patient Advance Directives Directive Response Recorded Date/Time Advance Directives No 05/12/16 11:33am Health Care Power of [place] No 05/12/16 11:33am Resuscitation Status Full Code [...] Type Severity Reaction Status Last Updated Penicillins ([id number]) Allergy Severe FACE/EYE SWELLING Active 05/12/16 Immunizations [...] 7.00 inches 05/12/2016 11:29am Height (Calculated Centimeters) 170.827357 cm 05/12/2016 11:29am Weight (Pounds) 157 pounds 05/12/2016 11:29am Weight (Ounces) 9.0 oz 05/12/2016 11:29am Weight (Calculated Grams) 52019.15 gm 05/12/2016 11:29am Weight (Calculated Kilograms) 71.128602 kilograms 05/12/2016 11:29am Calculated BMI 24.7 05/12/2016 [...] 5-9 05/12/2016 12:00pm 05/12/2016 12:26pm Urine Specific [place] 1.010 * 1.016-1.022 05/12/2016 12:00pm 2015 12:26pm [...] Discharge/Depart Date Attending Provider Departed Clinic [facility] 05/12/16 11:19am 05/12/16 2: 02pm TESFAYE KOTHARI DO
--- NOTE | 2016-07-09 12:28 | Physical Therapy Evaluation ---
PT Evaluation-General Medical Diagnosis Admission Date Jul 09, 2016 at 11:49 Medical Diagnosis: Sepsis, UTI Onset Date: Jul 09, 2016 Therapy Diagnosis Therapy Diagnosis: weakness; abn gait Height/Weight Height (Feet): 5 Height (Inches): 7.00 Weight (Pounds): 158 Weight (Ounces): 6.0 Precautions Precautions/Isolations: Standard Precautions Weight Bear Status Weight Bearing Restriction: Weight Bearing/Tolerated Referral Physician: Maikel Reason for Referral: Evaluation/Treatment Medical History Pertinent Medical History: Arthritis, GERD, HTN Additional Medical History high cholesterol; vaginal sling in May 2016 Current History Admitted due to weakness and unable to get up; pt found to have sepsis with UTI ; pt transferred to [facility] for continued medical management as well as functional strengthening with therapy Reviewed History: Yes Social History Home: Single Level Current Living Status: Other Family (aunt ) Entry Into Home: Stairs With Railing Pt does have a basement but does not need to enter it. Prior/Core FIM Prior Level of Function Functional [place] Measure 0=Not Assessed/NA 4=Minimal Assistance 1=Total Assistance 5=Supervision or Setup 2=Maximal Assistance 6=Modified [place] 3=Moderate Assistance 7=Complete [place] Bed Mobility: 7 Transfers (B,C,W/C) (FIM): 7 Gait: [address] and does her own housework and shopping. PT Evaluation-Current Subjective Agreeable to PT. Reports she has not walked much since being here and is weak. Reports she feels she better use a FWW for safety. Pain Numeric Pain Scale: 4 Location Body Site: Hip (bilateral) Pain Description: Ache Comment: uses tylenol as needed Objective Patient Orientation: Person, Place, Time, Situation Problem Solving: Fair Attachments: Oxygen (in situ during and post treatment), IV ROM/Strength ROM Lower Extremities WFL Strenght Lower Extremities grossly 4-/5 throughout Integumentary/Posture Integumentary intact Bowel Incontinence: No Bladder Incontinence: No Posture normal and symmetrical Neuromuscular (Tone, Coordination, Reflexes) intact and functional Sensory Vision: Wears Glasses Hearing: Functional Hand Dominance: Right Sensation Right Lower Extremit: Intact Sensation Left Lower Extremity: Intact Transfers Functional [place] Measure 0=Not Assessed/NA 4=Minimal Assistance 1=Total Assistance 5=Supervision or Setup 2=Maximal Assistance 6=Modified [place] 3=Moderate Assistance 7=Complete [place] Transfers (B, C, W/C) (FIM): 4 (in general CGA with all functional transfers. ) Sit to Lying (QC): 4 (asssit with legs ) Lying to Sitting/Side of Bed(Q: 4 (assist with legs) Sit to Stand (QC): 4 (light assist to lift to stand; also steadying assist with initial standing. ) Chair/Sgw-cn-Mchcp Xfer(QC): 4 Pt is unsteady with initial standing and needs CG to min assist for safety. Gait Does the Patient Walk?: Yes Mode of Locomotion: Walk Anticipated Mode of Locomotion: Walk Gait (FIM): 2 Distance (FIM): 3=986-82 ft Distance: 50 ft in room Walk 50 ft with 2 Turns(QC): 3 (min assist and assist with turns for safety) Walk 150 ft (QC): 88 (unable to ambulate that far) Gait Level of Assist: 4 Gait Assistive Device: FWW Comments/Gait Description slow gait with decreased step length and decreased functional act tolerance; manages turns with min assist. Wheelchair Training Does the Pt Use a Wheelchair?: No Balance Sitting Static: Good Standing Static: Fair Standing Dynamic: Fair Treatment transfer to from the commode x 2 with min assist; sit to from supine x 2 with min assist. Skilled cues for sequencing, hand placement and safety. Assessment/Needs Pt presents with a sig decline compared to PLOF. She demonstrates LE weakness bilaterally, decreased functional balance with gait; assist with bed mobility, transfers as well as gait and has limited functional activity [place]. She will benefit from skilled PT services to increase her functional mobility and safety to allow her to return home and care for herself and mobilize at her PLOF. Rehab Potential: Good PT Short Term Goals Short Term Goals Time Frame: Jul 16, 2016 Transfers (B,C,W/C) (FIM): 5 Gait (FIM): 4 Distance (FIM): 3=150 ft Gait Assistive Device: FWW PT Half-Way Goals Table Worker Goals PT Table Worker Goals Time Frame: Jul 23, 2016 Transfers (B,C,W/C) (FIM): 6 Sit to Lying (QC): 6 Lying-Sitting on Side/Bed(QC): 6 Sit to Stand (QC): 6 Chair/Mry-ja-Pnjlo Xfer(QC): 6 Does the Patient Walk: Yes Gait (FIM): 6 Gait distance (FIM): 3=150 ft Walk 50ft with 2 Turns (QC): 6 Walk 150 ft (QC): 6 Gait Level of Assist: 6 Gait Assistive Device: FWW Does the Pt use WC or Scooter?: No Stairs (FIM): 2 # of Steps: 4 Stairs Level Of Assist: 4 all goals have been set to allow pt to be mod indep in her room and for discharge home to care for herself and return to her PLOF. PT Plan Problem List Problem List: Activity Tolerance, Functional Strength, Safety, Balance, Gait, Transfer, Bed Mobility Treatment/Plan Treatment Plan: Continue Plan of Care Treatment Plan: Bed Mobility, Education, Functional Activity Stormy, Functional Strength, Gait, Safety, Therapeutic Exercise, Transfers Treatment Duration: Jul 23, 2016 # of days/week 5-6 Visits Per Week: 5-6 Safety Risks/Education Patient Education: Transfer Techniques, Safety Issues Teaching Recipient: Patient Teaching Methods: Discussion Response to Teaching: Verbalize Understanding, Reinforcement Needed Discharge Recommendations Plan Progress funcitonal molbility and activity tolerance. Time/GCodes Time In: 1215 Time Out: 1245 Total Billed Treatment Time: 30 Total Billed Treatment visit EVM 15 FA 15 NICHOL MONTIEL PT Jul 09, 2016 12:28
[2016-07-09] MEDS: ENOXAPARIN 30 MG/0.3 ML (LOVENOX) SYR SC SCH (13:23)
[2016-07-09] MEDS: RT-ALBUTEROL SULF 2.5 MG/3 ML PRE-MIX VIAL INH SCH ×2 (14:30→19:29)
--- NOTE | 2016-07-09 15:35 | Occupational Therapy Eval ---
OT Evaluation-General/PLF Medical Diagnosis Admission Date Jul 09, 2016 at 11:49 Medical Diagnosis: Sepsis, UTI Onset Date: Jul 09, 2016 Therapy Diagnosis Therapy Diagnosis: decreased self care Height/Weight Height (Feet): 5 Height (Inches): 7.00 Weight (Pounds): 158 Weight (Ounces): 6.0 Precautions Precautions/Isolations: Standard Precautions Weight Bear Status Weight Bearing Restriction: Weight Bearing/Tolerated Referral Physician: Maikel Medical History Pertinent Medical History: Arthritis, GERD, HTN Additional Medical History high cholesterol, bladder surgery, chronic back pain. Reviewed History: Yes Social History Home: Single Level Current Living Status: Other Family (aunt ) Entry Into Home: Stairs With Railing ADL-Prior Level of Function ADL PLOF Comments Pt reports being independent prior to admission. Did not use AD for mobility. Pt cooks, cleans, drives, and does grocery shopping. DME/Equipment: Grab Bars, Shower, Tall Toilet DME/Equipment Comments Has walker, but does not use. Drive Self: Yes OT Current Status Subjective Pt in bed, agrees to treatment. Pt reports no pain at rest, but states she has right hip pain with movement. Mental Status/Objective Patient Orientation: Person, Place, Situation Attachments: Oxygen Current Glasses/Contacts: Yes Dentures/Partials: Yes Hand Dominance: Right Upper Extremity ROM Grossly WFL Upper Extremity Coordination Intact Upper Extremity Sensation intact per pt report Upper Extremity Strength Grossly 4-/5 ADL-Treatment ADL-Current Pt supine to sit with supervision. Pt donned socks with SBA while seated EOB. Pt requests to use BSC. Transfer EOB <-> BSC with CGA for safety. Pt able to complete toileting hygiene with SBA. Washes hands with washcloth with set up. Sit to supine with supervision. Pt in bed with needs met after session. Functional [place] Measure 0=Not Assessed/NA 4=Minimal Assistance 1=Total Assistance 5=Supervision or Setup 2=Maximal Assistance 6=Modified [place] 3=Moderate Assistance 7=Complete IndependenceIRFPAI Quality Coding Scale 6 Independent with activity with or without an assistive device 5 Patient requires set up or clean up by helper. Patient completes activity by themselves 4 Supervision or touching assist (CGA). [place] provide cues , steadying assist 3 The helper provides less than half the effort to complete the activity 2 The helper provides more than half the effort to complete the activity 1 Dependent. The helper does all the effort to complete an activity 7 Patient refused to complete or attempt activity 9 The patient did not perform the activity before the current illness or injury 88 Not attempted due to Medical conditions or safety concerns Eating (FIM): 6 (Pt reports feeding self, opening containers, and cutting lila without assistance.) Eating (QC): 6 Toileting Hygiene (QC): 4 Lower Body Dressing (FIM): 5 (Socks only) Toilet/Commode Transfer (FIM): 4 Toilet Transfer (QC): 4 Education OT Patient Education: Rehab process Teaching Recipient: Patient Teaching Methods: Discussion Response to Teaching: Verbalize Understanding OT Short Term Goals Short Term Goals Transfers (B,C,W/C) (FIM): 5 1=Demonstrate adherence to instructed precautions during ADL tasks. 2=Patient will verbalize/demonstrate understanding of assistive devices/ modifications for ADL. 3=Patient will improve strength/tolerance for activity to enable patient to perform ADL's. OT Certified Nurses Aide Goals Halfway Goals Time Frame: Jul 30, 2016 Oral Hygiene (QC): 6 Grooming(FIM): 6 Toileting Hygiene (QC): 6 Bathing(FIM): 6 Upper Body Dressing(FIM): 6 Lower Body Dressing(FIM): 6 Toileting(FIM): 6 Toilet/Commode Transfer(FIM): 6 Toilet/Commode Transfer (QC): 6 Additional Goals: 1-Demonstrate ADL Tasks, 2-Verbalize Understanding, 3- ImproveStrength/Stormy 1=Demonstrate adherence to instructed precautions during ADL tasks. 2=Patient will verbalize/demonstrate understanding of assistive devices/ modifications for ADL. 3=Patient will improve strength/tolerance for activity to enable patient to perform ADL's. OT Education/Plan Problem List/Assessment Assessment: Decreased Activ Tolerance, Decreased UE Strength, Dependent Transfers, Impaired Self-Care Skills Pt demonstrates decreased mobility, strength, activity tolerance, and ADL functioning. Pt to benefit from skilled OT intervention for ADL training, transfers, strengthening, and home safety education to maximize level of function and allow safe discharge. Discharge Recommendations Plan/Recommendations: Continue POC Treatment Plan/Plan of Care Treatment,Training & Education: Yes Patient would benefit from OT for education, treatment and training to promote independence in ADL's, mobility, safety and/or upper extremity function for ADL' s. Plan of Care: ADL Retraining, Functional Mobility, UE Funct Exercise/Act Treatment Duration: Jul 30, 2016 # of days/week 5 Visits Per Week: 5 Agreement: Yes Rehab Potential: Good Time/GCodes Start Time: 14:54 Stop Time: 15:18 Total Time Billed (hr/min): 24 Billed Treatment Time 1 visit, EVM(9minutes), ADL(15minutes) KAREN KATHLEEN OT Jul 09, 2016 15:35
[2016-07-09] MEDS: BETHANECHOL 25 MG (URECHOLINE) TAB PO SCH ×2 (16:19→21:02)
[2016-07-09] MEDS: TROSPIUM 20 MG (SANCTURA) TAB PO SCH (16:19)
[2016-07-09 19:00] VITALS: BP 133/65
[2016-07-09] MEDS: SIMvastatin 20 MG (ZOCOR) TAB PO SCH (21:02)
[2016-07-09] MEDS: LACTULOSE SYRUP 10GM/15ML (ENULOSE) 30ML UDC PO SCH (21:02)
[2016-07-09] MEDS: KCL 20 MEQ TAB (K-DUR) PO SCH (21:02)
[2016-07-09] MEDS: cefTRIAXone INJECTION 1,000 MG in NS (IVPB) 50 ML IV SCH (21:03)
[2016-07-10 06:00] VITALS: BP 127/73
[2016-07-10] MEDS: BETHANECHOL 25 MG (URECHOLINE) TAB PO SCH ×4 (06:32→22:09)
[2016-07-10] MEDS: TROSPIUM 20 MG (SANCTURA) TAB PO SCH ×2 (06:32→17:01)
[2016-07-10] MEDS: PANTOPRAZOLE 40 MG (PROTONIX) TAB PO SCH (06:32)
[2016-07-10] MEDS: RT-ALBUTEROL SULF 2.5 MG/3 ML PRE-MIX VIAL INH SCH ×3 (08:33→18:52)
[2016-07-10] MEDS: KCL 20 MEQ TAB (K-DUR) PO SCH ×2 (09:17→22:09)
[2016-07-10] MEDS: NEBIVOLOL 5 MG TAB (BYSTOLIC) PO SCH (09:17)
[2016-07-10] MEDS: ENALAPRIL 10 MG (VASOTEC) TAB PO SCH (09:17)
[2016-07-10] MEDS: LACTULOSE SYRUP 10GM/15ML (ENULOSE) 30ML UDC PO SCH ×2 (09:17→22:10)
--- NOTE | 2016-07-10 09:33 | Progress Note-Urology ---
Progress Note-Urology Progress Notes/Assess & Plan Progress/Assessment & Plan voiding and emptying better, tolerates urecholine well Final Diagnosis urine retention and incontinence BRANDIN WELDON MD Jul 10, 2016 9:33 am
--- NOTE | 2016-07-10 09:34 | Physical Therapy Daily Note ---
PT Daily Note-Current Subjective Patient is on commode and agrees to PT. Pain Numeric Pain Scale: 0-No Pain Location: No Pain Reported Mental Status Patient Orientation: Normal For Age Attachments: Oxygen (1L) Transfers Functional [place] Measure 0=Not Assessed/NA 4=Minimal Assistance 1=Total Assistance 5=Supervision or Setup 2=Maximal Assistance 6=Modified [place] 3=Moderate Assistance 7=Complete IndependenceIRFPAI Quality Coding Scale 6 Independent with activity with or without an assistive device 5 Patient requires set up or clean up by helper. Patient completes activity by themselves 4 Supervision or touching assist (CGA). [place] provide cues , steadying assist 3 The helper provides less than half the effort to complete the activity 2 The helper provides more than half the effort to complete the activity 1 Dependent. The helper does all the effort to complete an activity 7 Patient refused to complete or attempt activity 9 The patient did not perform the activity before the current illness or injury 88 Not attempted due to Medical conditions or safety concerns Transfers (B, C, W/C) (FIM): 5 Scootin Sit to/from Stand: 5 Sit to Stand (QC): 5 Gait Training Does the Patient Walk?: Yes Gait (FIM): 4 Distance (FIM): 3=150 ft Distance: 150' Walk 50 ft with 2 Turns(QC): 4 Walk 150 ft (QC): 4 Gait Level of Assist: 4 Gait Assistive Device: FWW slightly unsteady toward the end of ambulation due to fatigue Exercises Seated Therapy Exercises: Ankle pumps, Long arc quads, Hip flexion Seated Reps: 25 (x 2 sets) Assessment Patient improving with treatment and is up in recliner with needs met. PT Short Term Goals Short Term Goals Time Frame: Jul 16, 2016 Transfers (B,C,W/C) (FIM): 5 Gait (FIM): 4 Distance (FIM): 3=150 ft Gait Assistive Device: FWW PT Scarf Gluer Goals Correction Goals PT Correction Goals Time Frame: Jul 23, 2016 Transfers (B,C,W/C) (FIM): 6 Sit to Lying (QC): 6 Lying-Sitting on Side/Bed(QC): 6 Sit to Stand (QC): 6 Chair/Vhl-hc-Dlbnp Xfer(QC): 6 Does the Patient Walk: Yes Gait (FIM): 6 Gait distance (FIM): 3=150 ft Walk 50ft with 2 Turns (QC): 6 Walk 150 ft (QC): 6 Gait Level of Assist: 6 Gait Assistive Device: FWW Does the Pt use WC or Scooter?: No Stairs (FIM): 2 # of Steps: 4 Stairs Level Of Assist: 4 PT Plan Treatment/Plan Treatment Plan: Continue Plan of Care Treatment Plan: Bed Mobility, Education, Functional Activity Stormy, Functional Strength, Gait, Safety, Therapeutic Exercise, Transfers Treatment Duration: Jul 23, 2016 Visits Per Week: 5-6 Time/GCodes Time In: 846 Time Out: 910 Total Billed Treatment Time: 24 Total Billed Treatment 1 visit GT 15 min EX 9 min MILAD FREGOSO PT Jul 10, 2016 09:34
[2016-07-10] MEDS ORDERED: FUROSEMIDE 40 MG/4 ML INJ (LASIX) IVP NR (11:14)
--- NOTE | 2016-07-10 11:19 | Progress Note-Hospitalist ---
Progress Note Progress Notes/Assess & Plan Date Seen 07/10/16 Diagonsis/Assessment & Plan Chart Review: Max fever 99.6 last night Patient Interview: Pt has been ambulating. Pt states that her legs feel weak. Pt states that she used O2 last night, but is breathing better today and she is off O2 Physical exam stable. Lungs much improved. Pt states that she urinated significantly yesterday. Pt states that she has pain currently. After Lasix 40mg IV given she urinated a lot and overall felt better. Upon my assessment of the elevated BNP I have consulted Dr. Decker for new onset congestive heart failure and I did note the elevated creatinine from 1.7 to 2.0 after Lasix 20 mg IV 1 was given yesterday so will monitor only and checked tomorrow unsure of what the source is for the renal insufficiency but she is still retaining urine Scribed by Dorian Torrez under the direct supervision of Dr. Hale. Afebrile currently vital signs stable, pleasant, oriented 3, still slowed mentation likely baseline, up in chair, appears more comfortable Regular rate rhythm, clear to auscultation bilaterally much improved from yesterday crackles in the bases No edema Laboratory Tests 07/10/16 11:10 Assessment: Severe sepsis status post IV fluid resuscitation and antibiotic coverage for Escherichia coli bacteremia with sepsis Severe urinary retention consulted urology and Dr. Dubon requiring in and out catheters Hypertension Hyperlipidemia New onset renal insufficiency worsened since diuresis yesterday New onset elevated BNP consistent with volume overload consulting Dr. Decker and checking echocardiogram Plan: Monitor creatinine closely Maintain IV antibiotics Consult cardiology Check echocardiogram Maintain oxygen PT/OT ERICKA HALE DO Jul 10, 2016 11:19
[2016-07-10 11:21] LABS: BASOPHILS % (AUTO) 0 % (0-10); EOSINOPHILS # (AUTO) 0.1 10^3/uL (0.0-0.3); EOSINOPHILS % (AUTO) 1 % (0-10); LYMPHOCYTES % (AUTO) 11 % (12-44); MEAN CORPUSCULAR HEMOGLOBIN 30 PG (25-34); MEAN CORPUSCULAR HGB CONC 32 G/DL (32-36); MEAN CORPUSCULAR VOLUME 91 FL (80-99); MEAN PLATELET VOLUME 9.7 FL (7.4-10.4); MONOCYTES % (AUTO) 11 % (0-12); NEUTROPHILS % (AUTO) 77 % (42-75); PLATELET COUNT 195 10^3/uL (130-400); RED CELL DISTRIBUTION WIDTH 13.7 % (10.0-14.5); WHITE BLOOD COUNT 9.1 10^3/uL (4.3-11.0)
[2016-07-10 11:42] LABS: ALBUMIN 3.1 G/DL (3.2-4.5); BILIRUBIN,TOTAL 0.3 MG/DL (0.1-1.0); CALCIUM 9.2 MG/DL (8.5-10.1); CREATININE SERUM 2.02 MG/DL (0.60-1.30); POTASSIUM 3.8 MMOL/L (3.6-5.0); TOTAL PROTEIN 5.9 G/DL (6.4-8.2)
--- NOTE | 2016-07-10 11:55 | Occupational Ther Daily Note ---
OT Current Status-Daily Note Subjective Pt sitting in chair, agrees to treatment. Pt has no c/o pain, but reports fatigue after session. Mental Status/Objective Functional [place] Measure 0=Not Assessed/NA 4=Minimal Assistance 1=Total Assistance 5=Supervision or Setup 2=Maximal Assistance 6=Modified [place] 3=Moderate Assistance 7=Complete [place] ADL-Treatment Functional [place] Measure 0=Not Assessed/NA 4=Minimal Assistance 1=Total Assistance 5=Supervision or Setup 2=Maximal Assistance 6=Modified [place] 3=Moderate Assistance 7=Complete IndependenceIRFPAI Quality Coding Scale 6 Independent with activity with or without an assistive device 5 Patient requires set up or clean up by helper. Patient completes activity by themselves 4 Supervision or touching assist (CGA). [place] provide cues , steadying assist 3 The helper provides less than half the effort to complete the activity 2 The helper provides more than half the effort to complete the activity 1 Dependent. The helper does all the effort to complete an activity 7 Patient refused to complete or attempt activity 9 The patient did not perform the activity before the current illness or injury 88 Not attempted due to Medical conditions or safety concerns Other Treatment Pt sit to stand with supervision. Transfer chair <-> BSC with CGA using FWW. Cues for safety. Pt performed bilateral UE exercises while seated to increase strength and activity tolerance needed for ADLs and transfers. Pt performed AROM exercises x10-15 reps at shoulder, elbow, forearm, wrist, and hands. Rest breaks between exercises. Pt has good participation in all activities. Pt sitting in chair with needs met after session. OT Short Term Goals Short Term Goals Transfers (B,C,W/C) (FIM): 5 1=Demonstrate adherence to instructed precautions during ADL tasks. 2=Patient will verbalize/demonstrate understanding of assistive devices/ modifications for ADL. 3=Patient will improve strength/tolerance for activity to enable patient to perform ADL's. OT Nursing Home Goals Anatomy And Physiology Instructor Goals Time Frame: Jul 30, 2016 Oral Hygiene (QC): 6 Grooming(FIM): 6 Toileting Hygiene (QC): 6 Bathing(FIM): 6 Upper Body Dressing(FIM): 6 Lower Body Dressing(FIM): 6 Toileting(FIM): 6 Toilet/Commode Transfer(FIM): 6 Toilet/Commode Transfer (QC): 6 Additional Goals: 1-Demonstrate ADL Tasks, 2-Verbalize Understanding, 3- ImproveStrength/Stormy 1=Demonstrate adherence to instructed precautions during ADL tasks. 2=Patient will verbalize/demonstrate understanding of assistive devices/ modifications for ADL. 3=Patient will improve strength/tolerance for activity to enable patient to perform ADL's. OT Education/Plan Problem List/Assessment Pt demonstrates decreased mobility, strength, activity tolerance, and ADL functioning. Pt to benefit from skilled OT intervention for ADL training, transfers, strengthening, and home safety education to maximize level of function and allow safe discharge. Discharge Recommendations Plan/Recommendations: Continue POC Treatment Plan/Plan of Care Patient would benefit from OT for education, treatment and training to promote independence in ADL's, mobility, safety and/or upper extremity function for ADL' s. Plan of Care: ADL Retraining, Functional Mobility, UE Funct Exercise/Act Treatment Duration: Jul 30, 2016 Visits Per Week: 5 Agreement: Yes Rehab Potential: Good Time/GCodes Start Time: 11:33 Stop Time: 11:49 Total Time Billed (hr/min): 16 Billed Treatment Time 1 visit, EX(16minutes) KAREN KATHLEEN OT Jul 10, 2016 11:55
[2016-07-10] MEDS: ENOXAPARIN 30 MG/0.3 ML (LOVENOX) SYR SC SCH (12:12)
--- NOTE | 2016-07-10 13:08 | Consultation-Cardiology ---
HPI-Cardiology Cardiology Consultation: Date of Consultation 07/10/16 Date of Admission 07-06-16 Attending Physician Li Hale DO Admitting Physician Abel Nayak MD Consulting Physician Brunilda Decker MD HPI: Chief Complaint: Elevated BNP Ms. Yu is a 76 year old female admitted on 07-06-16 with sepsis d/t UTI. She has been treated with IV abx and IVF resuscitation. She was reporting some increasing shortness of breath yesterday along with associated crackles in lungs. She was treated with IV lasix yesterday. Lab today shows an elevated BNP. She reports her breathing is much better today. No c/o CP, LE edema, palpitations, syncope or near syncope. Review of Systems-Cardiology Review of Systems Constitutional: As described under HPI Eyes: No blurred vision, No drainage, No pain, No vision change Ears/Nose/Throat: No ear discharge, No ear pain, No nasal drainage, No ulcerations Respiratory: As described under HPI Cardiovascular: As described under HPI Gastrointestinal: No constipation, No diarrhea, No nausea, No vomiting, No stool coloration changes Genitourinary: No dysuria, No discharge, No frequency, No hematuria, No urgency Skin: No rash, No skin related problems, No ulcerations Psychiatric/Neurological: No anxiety, No depression, No focal weakness, No seizure, No syncope Hematologic: No bleeding abnormalities WTR-Fyiuqc-Ngeigy Hx Patient Social History Type Used: Cigarettes Recent Foreign Travel: No Immunizations Up To Date Date of Pneumonia Vaccine: Jun 07, 2012 Date of Influenza Vaccine: Apr 27, 2016 Past Medical History PMH As described under Assessment. Family Medical History Family Medical History: She reports her mother had a heart attack in her older years. No reported h/o premature CAD or SCD. Family History: Cardiovascular disease 19 MOTHER (heart problems) Neoplasm G8 SISTER (cancer but does not know what kind) Osteoporosis G8 SISTER (polio as child) Allergies and Home Medications Allergies Coded Allergies: Penicillins (Verified Allergy, Severe, FACE/EYE SWELLING, 05/12/16) Home Medications Acetaminophen 650 Mg Tablet.er 1,300 MG PO HS (Reported) TAKES 2 (650MG) TABLETS Diphenhydramine HCl 25 Mg Capsule 25 MG PO BID (Reported) Enalapril Maleate 20 Mg Tablet 20 MG PO DAILY (Reported) Nebivolol HCl 5 Mg Tablet 5 MG PO DAILY (Reported) Omeprazole 40 Mg Capsule.dr 40 MG PO DAILY (Reported) Simvastatin 20 Mg Tablet 20 MG PO HS (Reported) Solifenacin Succinate 10 Mg Tablet 10 MG PO DAILY (Reported) Physical Exam-Cardiology Physical Exam Vital Signs/I&O Vital Sign - Last 12Hours 07/10/16 07/10/16 07/10/16 06:00 08:33 09:00 Temp 98.8 Pulse 73 Resp 18 B/P 127/73 Pulse Ox 93 95 O2 Delivery Room Air O2 Flow Rate 2.00 Intake and Output 07/10/16 00:00 Intake Total 2780 ml Output Total 1425 ml Balance 1355 ml Capillary Refill : Constitutional: appears stated ageNo apparent distress, well-developed well- nourished HEENT: PERRLNo discharge, hearing is well preserved oral hygience is goodNo ulceration, No xanthelasmas are seen Neck: No carotid bruit, carotid pulses are 2 + bilaterally Respiratory: No accessory muscle use, No respiratory distress, chest expansion is symmetric chest is bilaterally symmetric crackles (bi-basilar) Cardiovascular: regular rate-rhythmNo JVD, S1 and S2 Gastrointestinal: No tender, soft roundNo spleenomegaly Extremities: No clubbing, No cyanosis, No significant edema Neurologic/Psychiatric: alert oriented x 3 power is 5/5 both on sides Skin: No rash, No ulcerations Data Review Labs Laboratory Tests 07/10/16 11:10: Alanine Aminotransferase (ALT/SGPT) 11, Albumin 3.1L, Alkaline Phosphatase 61, Anion Gap 10, Aspartate Amino Transf (AST/SGOT) 12, BUN/Creatinine Ratio 14, Basophils # (Auto) 0.0, Basophils (%) (Auto) 0, Blood Urea Nitrogen 29H, Calcium Level 9.2, Carbon Dioxide Level 17L, Chloride Level 111H, Creatinine 2.02H, Eosinophils # (Auto) 0.1, Eosinophils (%) (Auto) 1, Estimat Glomerular Filtration Rate 24, Glucose Level 134H, Hematocrit 35, Hemoglobin 11.2L, Lymphocytes # (Auto) 1.0, Lymphocytes (%) (Auto) 11L, Mean Corpuscular Hemoglobin 30, Mean Corpuscular Hemoglobin Concent 32, Mean Corpuscular Volume 91, Mean Platelet Volume 9.7, Monocytes # (Auto) 1.0, Monocytes (%) (Auto) 11, Neutrophils # (Auto) 7.0, Neutrophils (%) (Auto) 77H, Platelet Count 195, Potassium Level 3.8, Red Blood Count 3.80L, Red Cell Distribution Width 13.7, Sodium Level 138, Total Bilirubin 0.3, Total Protein 5.9L, White Blood Count 9.1 Radiology NAME: FABIO YU [facility] REC#: [id number] PT STATUS: DIS IN : 1940 PHYSICIAN: LI HALE DO ADMIT DATE: 07/06/16 Signed Date of Exam: 07/09/16 CHEST PA/LAT (2 VIEW) Exam: PA and lateral views of the chest. Indication: Shortness of breath. Findings: There is prominence of interstitial markings, probably related to vascular congestion associated with small pleural effusions. The heart size is near the upper limits of normal. No pneumothorax. The mediastinum and nikki appear unremarkable. IMPRESSION: There is mild pulmonary vascular congestion with small bilateral effusions. Dictated by: Dictated on workstation # [id number] Dict: 07/09/16 1046 Trans: 07/09/16 1246 [facility] [id number] Interpreted by: CAREY FLOWERS MD Electronically signed by:CAREY FLOWERS MD 07/09/16 1248 A/P-Cardiology Assessment/Admission Diagnosis Elevated BNP likely d/t volume overload and acute renal insufficiency UTI with sepsis - improved - management per medical services HTN - BB and SUNDEEP HLP - statin tx Acute on CRIF of undetermined etiology; acute likely d/t ATN d/t sepsis Discussion and Recomendations UTI with sepsis which is resolving, being managed by medical services. Elevated BNP likely d/t volume overload d/t fluid resuscitation d/t sepsis and acute renal insufficiency. Nevertheless we will do an echocardiogram to evaluate cardiac structure and LVEF. Treat with IV diuretics. Acute on CRIF; acute component likely d/t ATN d/t hypotension d/t sepsis. May consider stopping the SUNDEEP (-) depending on LVEF d/t renal function. Monitor lab closely. We would like to thank Dr. Hale for this consult. Further recommendations will be based on her hospital course. This consult is being scribed by Madi Valenzuela APRN on behalf of Dr. Decker after discussion regarding plan of care. Physician Assessment Physician Assessment Lungs: fair to good air entry Cor: reg A&R * As documented in our note above * Complex management due to multiple comorbidities * I spoke with her and answered questions VIRGIL VALENZUELA [employer] [employer] Jul 10, 2016 13:07 BRUNILDA DECKER MD FACP FAC CCDS Jul 10, 2016 14:50
[2016-07-10] MEDS: ACETAMINOPHEN 325 MG TABLET/CAPLET (TYLENOL) PO PRN ×2 (14:38→23:04)
[2016-07-10 18:00] VITALS: BP 138/63
[2016-07-10] MEDS: SIMvastatin 20 MG (ZOCOR) TAB PO SCH (22:09)
[2016-07-10] MEDS: cefTRIAXone INJECTION 1,000 MG in NS (IVPB) 50 ML IV SCH (22:10)
[2016-07-11] MEDS: BETHANECHOL 25 MG (URECHOLINE) TAB PO SCH ×4 (05:24→20:28)
[2016-07-11] MEDS: PANTOPRAZOLE 40 MG (PROTONIX) TAB PO SCH (05:24)
[2016-07-11] MEDS: TROSPIUM 20 MG (SANCTURA) TAB PO SCH ×2 (05:24→16:27)
[2016-07-11 05:25] VITALS: BP 146/78
[2016-07-11 05:35] LABS: BASOPHILS % (AUTO) 0 % (0-10); EOSINOPHILS # (AUTO) 0.2 10^3/uL (0.0-0.3); EOSINOPHILS % (AUTO) 2 % (0-10); LYMPHOCYTES # (AUTO) 1.3 X 10^3 (1.0-4.0); LYMPHOCYTES % (AUTO) 16 % (12-44); MEAN CORPUSCULAR HEMOGLOBIN 30 PG (25-34); MEAN CORPUSCULAR HGB CONC 33 G/DL (32-36); MEAN CORPUSCULAR VOLUME 92 FL (80-99); MEAN PLATELET VOLUME 10.1 FL (7.4-10.4); MONOCYTES # (AUTO) 0.9 X 10^3 (0.0-1.0); MONOCYTES % (AUTO) 11 % (0-12); NEUTROPHILS # (AUTO) 6.1 X 10^3 (1.8-7.8); NEUTROPHILS % (AUTO) 71 % (42-75); PLATELET COUNT 204 10^3/uL (130-400); RED BLOOD COUNT 3.62 10^6/uL (4.35-5.85); RED CELL DISTRIBUTION WIDTH 13.7 % (10.0-14.5); WHITE BLOOD COUNT 8.6 10^3/uL (4.3-11.0)
[2016-07-11 05:58] LABS: BILIRUBIN,TOTAL 0.3 MG/DL (0.1-1.0); CALCIUM 8.8 MG/DL (8.5-10.1); CREATININE SERUM 1.91 MG/DL (0.60-1.30); POTASSIUM 4.2 MMOL/L (3.6-5.0); TOTAL PROTEIN 5.8 G/DL (6.4-8.2)
[2016-07-11] MEDS: NEBIVOLOL 5 MG TAB (BYSTOLIC) PO SCH (08:05)
[2016-07-11] MEDS: ENALAPRIL 10 MG (VASOTEC) TAB PO SCH (08:05)
[2016-07-11] MEDS: LACTULOSE SYRUP 10GM/15ML (ENULOSE) 30ML UDC PO SCH ×2 (08:05→20:27)
[2016-07-11] MEDS: KCL 20 MEQ TAB (K-DUR) PO SCH ×2 (08:05→20:28)
[2016-07-11] MEDS: RT-ALBUTEROL SULF 2.5 MG/3 ML PRE-MIX VIAL INH SCH ×3 (08:13→18:54)
--- NOTE | 2016-07-11 09:30 | Physical Therapy Daily Note ---
PT Daily Note-Current Subjective States that she is not feeling great. Pain Numeric Pain Scale: 0-No Pain Transfers Functional [place] Measure 0=Not Assessed/NA 4=Minimal Assistance 1=Total Assistance 5=Supervision or Setup 2=Maximal Assistance 6=Modified [place] 3=Moderate Assistance 7=Complete IndependenceIRFPAI Quality Coding Scale 6 Independent with activity with or without an assistive device 5 Patient requires set up or clean up by helper. Patient completes activity by themselves 4 Supervision or touching assist (CGA). [place] provide cues , steadying assist 3 The helper provides less than half the effort to complete the activity 2 The helper provides more than half the effort to complete the activity 1 Dependent. The helper does all the effort to complete an activity 7 Patient refused to complete or attempt activity 9 The patient did not perform the activity before the current illness or injury 88 Not attempted due to Medical conditions or safety concerns Transfers (B, C, W/C) (FIM): 5 Sit to/from Stand: 5 Exercises Supine Ex: Ankle pumps, Quad Set, Glut sets Supine Reps: 20 Assessment Current Status: Good Progress The patient had to stop treatment secondary to needing to use the commode. The patient did have increased fatigue today. PT Short Term Goals Short Term Goals Time Frame: Jul 16, 2016 Transfers (B,C,W/C) (FIM): 5 Gait (FIM): 4 Distance (FIM): 3=150 ft Gait Assistive Device: FWW PT Stope Miner Goals Jail Goals PT Jail Goals Time Frame: Jul 23, 2016 Transfers (B,C,W/C) (FIM): 6 Sit to Lying (QC): 6 Lying-Sitting on Side/Bed(QC): 6 Sit to Stand (QC): 6 Chair/Wqu-do-Yuhnk Xfer(QC): 6 Does the Patient Walk: Yes Gait (FIM): 6 Gait distance (FIM): 3=150 ft Walk 50ft with 2 Turns (QC): 6 Walk 150 ft (QC): 6 Gait Level of Assist: 6 Gait Assistive Device: FWW Does the Pt use WC or Scooter?: No Stairs (FIM): 2 # of Steps: 4 Stairs Level Of Assist: 4 PT Plan Treatment/Plan Treatment Plan: Continue Plan of Care Treatment Plan: Bed Mobility, Education, Functional Activity Stormy, Functional Strength, Gait, Safety, Therapeutic Exercise, Transfers Treatment Duration: Jul 23, 2016 Visits Per Week: 5-6 Time/GCodes Time In: 912 Time Out: 922 Total Billed Treatment Time: 10' Total Billed Treatment 1, EX x 10' TI DU PT Jul 11, 2016 09:30
[2016-07-11] MEDS: ENOXAPARIN 30 MG/0.3 ML (LOVENOX) SYR SC SCH (13:15)
--- NOTE | 2016-07-11 16:24 | Progress Note-Cardiology ---
Cardiology SOAP Progress Note Subjective: Feels somewhat better. Has malaise. Denies cp or shortness of breath at rest Objective: I&O/Vital Signs Vital Sign - Last 12Hours 07/11/16 07/11/16 07/11/16 07/11/16 05:25 07:48 08:13 08:58 Temp 98.4 Pulse 87 Resp 20 B/P 146/78 Pulse Ox 95 95 96 O2 Delivery Room Air Room Air 07/11/16 07/11/16 13:15 14:33 Temp 98.4 Pulse Ox 95 Intake and Output 07/11/16 00:00 Intake Total 2210 ml Output Total 1475 ml Balance 735 ml Weight (Pounds): 158 Weight (Ounces): 6.0 Weight (Calculated Kilograms): 71.053515 Constitutional: appears stated ageNo apparent distress, well-developed well- nourished Respiratory: No accessory muscle use, No respiratory distress, chest expansion is symmetric chest is bilaterally symmetric crackles (bi-basilar) Cardiovascular: regular rate-rhythmNo JVD, S1 and S2 Gastrointestional: No tender, soft roundNo spleenomegaly Extremities: No clubbing, No cyanosis, No significant edema Neurologic/Psychiatric: alert oriented x 3 power is 5/5 both on sides Skin: No rash, No ulcerations Results/Procedures: Labs Laboratory Tests 07/11/16 04:45: Alanine Aminotransferase (ALT/SGPT) 12, Albumin 3.0L, Alkaline Phosphatase 64, Anion Gap 11, Aspartate Amino Transf (AST/SGOT) 15, BUN/Creatinine Ratio 16, Basophils # (Auto) 0.0, Basophils (%) (Auto) 0, Blood Urea Nitrogen 31H, Calcium Level 8.8, Carbon Dioxide Level 17L, Chloride Level 112H, Creatinine 1.91H, Eosinophils # (Auto) 0.2, Eosinophils (%) (Auto) 2, Estimat Glomerular Filtration Rate 26, Glucose Level 97, Hematocrit 33L, Hemoglobin 10.8L, Lymphocytes # (Auto) 1.3, Lymphocytes (%) (Auto) 16, Mean Corpuscular Hemoglobin 30, Mean Corpuscular Hemoglobin Concent 33, Mean Corpuscular Volume 92, Mean Platelet Volume 10.1, Monocytes # (Auto) 0.9, Monocytes (%) (Auto) 11, Neutrophils # (Auto) 6.1, Neutrophils (%) (Auto) 71, Platelet Count 204, Potassium Level 4.2, Red Blood Count 3.62L, Red Cell Distribution Width 13.7, Sodium Level 140, Total Bilirubin 0.3, Total Protein 5.8L, White Blood Count 8.6 Laboratory Tests 07/10/16 11:10 07/11/16 04:45 A/P: Assessment: Elevated BNP likely d/t volume overload and acute renal insufficiency UTI with sepsis - improved - management per medical services HTN - BB and SUNDEEP HLP - statin tx Acute on CRIF of undetermined etiology; acute likely d/t ATN d/t transient hypotension due to sepsis Plan: Continue current regimen Monitor labs I spoke with her and answered questions JACKIE MUÑOZ MD FACP FAC CCDS Jul 11, 2016 16:24
[2016-07-11 18:30] VITALS: BP 155/70
[2016-07-11] MEDS: cefTRIAXone INJECTION 1,000 MG in NS (IVPB) 50 ML IV SCH (20:27)
[2016-07-11] MEDS: ACETAMINOPHEN 325 MG TABLET/CAPLET (TYLENOL) PO PRN (20:28)
[2016-07-11] MEDS: SIMvastatin 20 MG (ZOCOR) TAB PO SCH (20:28)
[2016-07-12 06:00] VITALS: BP 148/74
[2016-07-12] MEDS: BETHANECHOL 25 MG (URECHOLINE) TAB PO SCH ×4 (06:03→21:42)
[2016-07-12] MEDS: TROSPIUM 20 MG (SANCTURA) TAB PO SCH ×2 (06:03→16:42)
[2016-07-12] MEDS: PANTOPRAZOLE 40 MG (PROTONIX) TAB PO SCH (06:03)
[2016-07-12] MEDS: RT-ALBUTEROL SULF 2.5 MG/3 ML PRE-MIX VIAL INH SCH ×3 (07:15→18:43)
[2016-07-12] MEDS: NEBIVOLOL 5 MG TAB (BYSTOLIC) PO SCH (09:33)
[2016-07-12] MEDS: LACTULOSE SYRUP 10GM/15ML (ENULOSE) 30ML UDC PO SCH ×2 (09:33→21:42)
[2016-07-12] MEDS: ENALAPRIL 10 MG (VASOTEC) TAB PO SCH (09:34)
[2016-07-12] MEDS: KCL 20 MEQ TAB (K-DUR) PO SCH ×2 (09:34→21:42)
--- NOTE | 2016-07-12 09:49 | Progress Note-Urology ---
Progress Note-Urology Progress Notes/Assess & Plan Progress/Assessment & Plan voiding better and holding better, tolerates urecholine well, gets cath once a day for around 400cc, see today and decide about increasing urecholine Final Diagnosis Neurogenic bladder with retention and incontinence BRANDIN WELDON MD Jul 12, 2016 9:48 am
[2016-07-12] MEDS: ENOXAPARIN 30 MG/0.3 ML (LOVENOX) SYR SC SCH (14:11)
--- NOTE | 2016-07-12 15:15 | Progress Note-Cardiology ---
Cardiology SOAP Progress Note Subjective: She does not report cp or palp or syncope or shortness of breath at rest Malaise is improving Objective: I&O/Vital Signs Vital Sign - Last 12Hours 07/12/16 07/12/16 07/12/16 06:00 07:15 14:32 Temp 97.3 Pulse 88 Resp 18 B/P 148/74 Pulse Ox 98 97 96 O2 Delivery Room Air Intake and Output 07/12/16 00:00 Intake Total 1810 ml Output Total 1960 ml Balance -150 ml Weight (Pounds): 158 Weight (Ounces): 6.0 Weight (Calculated Kilograms): 71.012820 Constitutional: appears stated ageNo apparent distress, well-developed well- nourished Respiratory: No accessory muscle use, No respiratory distress, chest expansion is symmetric chest is bilaterally symmetric crackles (bi-basilar) Cardiovascular: regular rate-rhythmNo JVD, S1 and S2 Gastrointestional: No tender, soft roundNo spleenomegaly Extremities: No clubbing, No cyanosis, No significant edema Neurologic/Psychiatric: alert oriented x 3 power is 5/5 both on sides Skin: No rash, No ulcerations Results/Procedures: Labs Laboratory Tests 07/11/16 04:45 A/P: Assessment: Elevated BNP likely d/t volume overload and acute renal insufficiency UTI with sepsis - improved - management per medical services HTN - BB and SUNDEEP HLP - statin tx Acute on CRIF of undetermined etiology; acute likely d/t ATN d/t transient hypotension due to sepsis Plan: Continue current regimen Repeat lab work I spoke with her and answered questions JACKIE MUÑOZ MD FACP FAC CCDS Jul 12, 2016 15:14
[2016-07-12 17:46] VITALS: BP 155/73
[2016-07-12] MEDS: SIMvastatin 20 MG (ZOCOR) TAB PO SCH (21:42)
[2016-07-12] MEDS: cefTRIAXone INJECTION 1,000 MG in NS (IVPB) 50 ML IV SCH (21:43)
[2016-07-13] MEDS: ACETAMINOPHEN 325 MG TABLET/CAPLET (TYLENOL) PO PRN (01:50)
[2016-07-13 04:39] LABS: BASOPHILS # (AUTO) 0.1 10^3/uL (0.0-0.1); BASOPHILS % (AUTO) 1 % (0-10); EOSINOPHILS # (AUTO) 0.3 10^3/uL (0.0-0.3); EOSINOPHILS % (AUTO) 3 % (0-10); LYMPHOCYTES # (AUTO) 1.5 X 10^3 (1.0-4.0); LYMPHOCYTES % (AUTO) 17 % (12-44); MEAN CORPUSCULAR HEMOGLOBIN 30 PG (25-34); MEAN CORPUSCULAR HGB CONC 32 G/DL (32-36); MEAN CORPUSCULAR VOLUME 93 FL (80-99); MEAN PLATELET VOLUME 10.1 FL (7.4-10.4); MONOCYTES # (AUTO) 0.9 X 10^3 (0.0-1.0); MONOCYTES % (AUTO) 11 % (0-12); NEUTROPHILS # (AUTO) 6.1 X 10^3 (1.8-7.8); NEUTROPHILS % (AUTO) 69 % (42-75); PLATELET COUNT 242 10^3/uL (130-400); RED BLOOD COUNT 3.59 10^6/uL (4.35-5.85); RED CELL DISTRIBUTION WIDTH 13.8 % (10.0-14.5); WHITE BLOOD COUNT 8.9 10^3/uL (4.3-11.0)
[2016-07-13 05:15] LABS: CALCIUM 8.8 MG/DL (8.5-10.1); CREATININE SERUM 1.91 MG/DL (0.60-1.30); MAGNESIUM 1.7 MG/DL (1.8-2.4); POTASSIUM 4.6 MMOL/L (3.6-5.0)
[2016-07-13 06:00] VITALS: BP 157/75
[2016-07-13] MEDS: PANTOPRAZOLE 40 MG (PROTONIX) TAB PO SCH (06:12)
[2016-07-13] MEDS: BETHANECHOL 25 MG (URECHOLINE) TAB PO SCH ×2 (06:12→11:13)
[2016-07-13] MEDS: TROSPIUM 20 MG (SANCTURA) TAB PO SCH (06:12)
--- NOTE | 2016-07-13 07:46 | Progress Note-Urology ---
Progress Note-Urology Progress Notes/Assess & Plan Progress/Assessment & Plan EMPTYING BETTER, KEEP SAME Final Diagnosis NEUROGENIC BLADDER WITH RETENTION AND INCONTINENCE BRANDIN WELDON MD Jul 13, 2016 7:46 am
[2016-07-13] MEDS: ENALAPRIL 10 MG (VASOTEC) TAB PO SCH (08:17)
[2016-07-13] MEDS: KCL 20 MEQ TAB (K-DUR) PO SCH (08:17)
[2016-07-13] MEDS: NEBIVOLOL 5 MG TAB (BYSTOLIC) PO SCH (08:17)
[2016-07-13] MEDS: LACTULOSE SYRUP 10GM/15ML (ENULOSE) 30ML UDC PO SCH (08:17)
--- NOTE | 2016-07-13 08:42 | Progress Note-Cardiology ---
Cardiology SOAP Progress Note Subjective: Sitting up in bed. States she feels good this morning. Wants to go home. No c /o CP, SOA, palpitations, syncope or near syncope. Objective: I&O/Vital Signs Vital Sign - Last 12Hours 07/13/16 06:00 Temp 98.3 Pulse 95 Resp 20 B/P 157/75 Pulse Ox 96 O2 Delivery Room Air Intake and Output 07/13/16 00:00 Intake Total 2832 ml Output Total 1950 ml Balance 882 ml Weight (Pounds): 158 Weight (Ounces): 6.0 Weight (Calculated Kilograms): 71.846739 Constitutional: appears stated ageNo apparent distress, well-developed well- nourished Respiratory: No accessory muscle use, No respiratory distress, chest expansion is symmetric chest is bilaterally symmetric other (diminished bases bilat) Cardiovascular: regular rate-rhythmNo JVD, S1 and S2 Gastrointestional: No tender, soft roundNo spleenomegaly Extremities: No clubbing, No cyanosis, No significant edema Neurologic/Psychiatric: alert oriented x 3 power is 5/5 both on sides Skin: No rash, No ulcerations Results/Procedures: Labs Laboratory Tests 07/13/16 04:07: Anion Gap 10, BUN/Creatinine Ratio 14, Basophils # (Auto) 0.1, Basophils (%) ( Auto) 1, Blood Urea Nitrogen 26H, Calcium Level 8.8, Carbon Dioxide Level 16L, Chloride Level 113H, Creatinine 1.91H, Eosinophils # (Auto) 0.3, Eosinophils (% ) (Auto) 3, Estimat Glomerular Filtration Rate 26, Glucose Level 98, Hematocrit 33L, Hemoglobin 10.7L, Lymphocytes # (Auto) 1.5, Lymphocytes (%) (Auto) 17, Magnesium Level 1.7L, Mean Corpuscular Hemoglobin 30, Mean Corpuscular Hemoglobin Concent 32, Mean Corpuscular Volume 93, Mean Platelet Volume 10.1, Monocytes # (Auto) 0.9, Monocytes (%) (Auto) 11, Neutrophils # (Auto) 6.1, Neutrophils (%) (Auto) 69, Platelet Count 242, Potassium Level 4.6, Red Blood Count 3.59L, Red Cell Distribution Width 13.8, Sodium Level 139, White Blood Count 8.9 A/P: Assessment: Ac systolic CHF. Echo of 07/10/16 showed distal septal and anteroapical hypokinesis to akinesis, LVEF 30-35%, mild to mod MR Volume overload UTI with sepsis - improved - management per medical services HTN - BB and SUNDEEP HLP - statin tx Acute on CRIF of undetermined etiology; acute likely d/t ATN d/t transient hypotension due to sepsis Plan: Continue current regimen Out pt f/u in [address] Decker Physician Assessment Physician Assessment Lungs: good bilat air entry Cor: reg Echo reviewed: see above A&R * As documented in our note above that I updated at the time of this writing * I spoke with Ms Yu in detail regarding the finding of cardiomyopathy on her echo and advised close and early f/u. Potential etiologies were reviewed VIRGIL GUZMAN Jul 13, 2016 08:42 JACKIE DECKER MD FACP FAC CCDS Jul 13, 2016 17:04
[2016-07-13] MEDS: RT-ALBUTEROL SULF 2.5 MG/3 ML PRE-MIX VIAL INH SCH (10:08)
--- NOTE | 2016-07-13 10:28 | Discharge Summary-Hospitalist ---
Diagnosis/Chief Complaint Date of Admission Jul 09, 2016 at 11:49 Date of Discharge Discharge Diagnosis Chart Review: Max fever 99.6 last night Patient Interview: Pt has been ambulating. Pt states that her legs feel weak. Pt states that she used O2 last night, but is breathing better today and she is off O2 Physical exam stable. Lungs much improved. Pt states that she urinated significantly yesterday. Pt states that she has pain currently. After Lasix 40mg IV given she urinated a lot and overall felt better. Upon my assessment of the elevated BNP I have consulted Dr. Decker for new onset congestive heart failure and I did note the elevated creatinine from 1.7 to 2.0 after Lasix 20 mg IV 1 was given yesterday so will monitor only and checked tomorrow unsure of what the source is for the renal insufficiency but she is still retaining urine Scribed by Dorian Torrez under the direct supervision of Dr. Hale. Afebrile currently vital signs stable, pleasant, oriented 3, still slowed mentation likely baseline, up in chair, appears more comfortable Regular rate rhythm, clear to auscultation bilaterally much improved from yesterday crackles in the bases No edema Laboratory Tests 07/10/16 11:10 Assessment: Severe sepsis status post IV fluid resuscitation and antibiotic coverage for Escherichia coli bacteremia with sepsis Severe urinary retention consulted urology and Dr. Dubon requiring in and out catheters Hypertension Hyperlipidemia New onset renal insufficiency worsened since diuresis yesterday New onset elevated BNP consistent with volume overload consulting Dr. Decker and checking echocardiogram Plan: Monitor creatinine closely Maintain IV antibiotics Consult cardiology Check echocardiogram Maintain oxygen PT/OT Reason Hospital Visit/Course Notes from 07/13/2016: Chart Review: No fever Vitals stable Patient Interview: Pt states that she wishes to DC to home, with home health. Pt states that she did not require catheter last night. Pt uses [facility] pharmacy. Physical exam was stable. no fever, vital signs stable, pleasant, oriented 3 Regular rate and rhythm, clear to auscultation bilaterally No edema Plan: DC with home health Follow-up with Dr. Hill, Cardiology, and PCP. Has completed antibiotic therapy while hospitalized Cardiology follow-up for new onset congestive heart failure likely related to volume resuscitation of fluids due to severe sepsis on admission Scribed by Dorian Torrez under the direct supervision of Dr. Hale. Discharge Summary Discharge Physical Examination Allergies: Coded Allergies: Penicillins (Verified Allergy, Severe, FACE/EYE SWELLING, 05/12/16) Vitals & I&Os Vital Signs Date Time Temp Pulse Resp B/P Pulse Ox O2 Delivery O2 Flow Rate FiO2 07/13/16 06:00 98.3 95 20 157/75 96 Room Air 07/10/16 08:33 2.00 Hospital Course Labs (last 24 hrs) Laboratory Tests 07/13/16 04:07: Anion Gap 10, BUN/Creatinine Ratio 14, Basophils # (Auto) 0.1, Basophils (%) ( Auto) 1, Blood Urea Nitrogen 26H, Calcium Level 8.8, Carbon Dioxide Level 16L, Chloride Level 113H, Creatinine 1.91H, Eosinophils # (Auto) 0.3, Eosinophils (% ) (Auto) 3, Estimat Glomerular Filtration Rate 26, Glucose Level 98, Hematocrit 33L, Hemoglobin 10.7L, Lymphocytes # (Auto) 1.5, Lymphocytes (%) (Auto) 17, Magnesium Level 1.7L, Mean Corpuscular Hemoglobin 30, Mean Corpuscular Hemoglobin Concent 32, Mean Corpuscular Volume 93, Mean Platelet Volume 10.1, Monocytes # (Auto) 0.9, Monocytes (%) (Auto) 11, Neutrophils # (Auto) 6.1, Neutrophils (%) (Auto) 69, Platelet Count 242, Potassium Level 4.6, Red Blood Count 3.59L, Red Cell Distribution Width 13.8, Sodium Level 139, White Blood Count 8.9 Pending Labs Laboratory Tests 07/13/16 04:07: Anion Gap 10, BUN/Creatinine Ratio 14, Basophils # (Auto) 0.1, Basophils (%) ( Auto) 1, Blood Urea Nitrogen 26, Calcium Level 8.8, Carbon Dioxide Level 16, Chloride Level 113, Creatinine 1.91, Eosinophils # (Auto) 0.3, Eosinophils (%) ( Auto) 3, Estimat Glomerular Filtration Rate 26, Glucose Level 98, Hematocrit 33 , Hemoglobin 10.7, Lymphocytes # (Auto) 1.5, Lymphocytes (%) (Auto) 17, Magnesium Level 1.7, Mean Corpuscular Hemoglobin 30, Mean Corpuscular Hemoglobin Concent 32, Mean Corpuscular Volume 93, Mean Platelet Volume 10.1, Monocytes # (Auto) 0.9, Monocytes (%) (Auto) 11, Neutrophils # (Auto) 6.1, Neutrophils (%) (Auto) 69, Platelet Count 242, Potassium Level 4.6, Red Blood Count 3.59, Red Cell Distribution Width 13.8, Sodium Level 139, White Blood Count 8.9 Discharge Home Medications: Active Scripts Active Bethanechol Chloride 25 Mg Tablet 25 Mg PO ACHS Reported Vesicare (Solifenacin Succinate) 10 Mg Tablet 10 Mg PO DAILY Simvastatin 20 Mg Tablet 20 Mg PO HS Enalapril Maleate 20 Mg Tablet 20 Mg PO DAILY Omeprazole 40 Mg Capsule.dr 40 Mg PO DAILY Acetaminophen 8 Hour (Acetaminophen) 650 Mg Tablet.er 1,300 Mg PO HS TAKES 2 (650MG) TABLETS Benadryl (Diphenhydramine HCl) 25 Mg Capsule 25 Mg PO BID Bystolic (Nebivolol HCl) 5 Mg Tablet 5 Mg PO DAILY Instructions to patient/family Please see electonic discharge instructions given to patient. ERICKA HALE DO Jul 13, 2016 10:28
[2016-07-13] MEDS ORDERED: BETH25TA PO (11:15)
--- NOTE | 2016-07-13 11:18 | Discharge Inst-Home Health ---
Discharge Inst-to Home Health Patient Instructions Patient Instructions/FollowUp: Obtain follow-up with Dr. Nayak in one week, Dr. Dubon in 2 weeks, Dr. Hill in 2 weeks, Dr. Decker in 2 weeks Patient Problems: Sepsis with pyelonephritis Urinary retention VIA [place], [place] DISCHARGE ORDERS Allergies: Coded Allergies: Penicillins (Verified Allergy, Severe, FACE/EYE SWELLING, 05/12/16) Height (Feet): 5 Height (Inches): 7.00 Weight (Pounds): 158 Weight (Ounces): 6.0 Home Health Need/Face to Face Reason Pt Homebound weakness following sepsis episode I Have Seen Pt [id number]: Yes Date of Face to Face: Jul 13, 2016 Discharged To: Home Diagnosis/Conditions HH Order: Medication and ministration Monitor for urinary retention report to urology Teach how to do self catheters Consult/Follow Up/New Order *I certify that based on my findings, the following services are medically necessary Home Health Services: Services: Nursing Services, [employer] Client [employer] Analyst-Evaluate & Treat, Physical Therapy-Evaluate & Treat, Speech Language-Evaluate & Treat My clinical findings support the need for the above services; see Diagnosis. Dicharge Diet: Cardiac Diet, Low Sodium Diet Daily Activity as Tolerated: Yes Discharge Medications: New, Converted, or Re-newed RX: Transmited to Pharmacy I certify that this patient is under my care and that I, a nurse practitioner or a physician; a visitor services information assistant working with me, had a face to face encounter that - meets the physician face to face encounter requirements with this patient as dated. ERICKA HALE DO Jul 13, 2016 11:18
[2016-07-13] MEDS ORDERED: POTA-51 PO (12:31)
[2016-07-13] MEDS ORDERED: FURO-124 PO (12:31)
--- NOTE | 2016-07-13 12:42 | Physical Therapy Daily Note ---
PT Daily Note-Current Subjective Pt sitting up in bed upon arrival. Pt is to discharge today. Pt agreed to PT for walking. Pain Numeric Pain Scale: 0-No Pain Location: No Pain Reported Mental Status Patient Orientation: Person, Normal For Age Transfers Functional [place] Measure 0=Not Assessed/NA 4=Minimal Assistance 1=Total Assistance 5=Supervision or Setup 2=Maximal Assistance 6=Modified [place] 3=Moderate Assistance 7=Complete IndependenceIRFPAI Quality Coding Scale 6 Independent with activity with or without an assistive device 5 Patient requires set up or clean up by helper. Patient completes activity by themselves 4 Supervision or touching assist (CGA). [place] provide cues , steadying assist 3 The helper provides less than half the effort to complete the activity 2 The helper provides more than half the effort to complete the activity 1 Dependent. The helper does all the effort to complete an activity 7 Patient refused to complete or attempt activity 9 The patient did not perform the activity before the current illness or injury 88 Not attempted due to Medical conditions or safety concerns Scootin Roll Left to Right (QC): 5 Supine to/from Sit: 5 Sit to/from Stand: 5 Sit to Lying (QC): 5 Sit to Stand (QC): 5 Chair/Uqx-ef-Hlwpd Xfer(QC): 5 Bed to/from Chair: 5 Weight Bearing Weight Bearing Restriction: Full Weight Bearing Location Restriction: LE Bilateral Gait Training Does the Patient Walk?: Yes Distance (FIM): 3=150 ft Distance: 150' Walk 50 ft with 2 Turns(QC): 5 Walk 150 ft (QC): 5 Gait Level of Assist: 5 Gait Persons Needed: 1 Gait Assistive Device: FWW Pt's gait is slow but steady without LOB. Treatments Pt transferred from supine to EOB at SBA then EOB to standing at [facility] using FWW. Pt ambulated using FWW at SBA. Pt returned to room at end of walk to use restroom. Pt was able to doff her pants for toileting and transfer to toilet at SBA. When finished, pt transfers off toilet at SBA and returned to EOB. shellfish bed worker had showed up to visit with pt on Home health for discharge. Pt was left with all needs met, at EOB visiting with shellfish bed worker at end of tx. Assessment Current Status: Good Progress Pt was able to transfer and ambulate well during tx. Pt had no concerns for discharge. PT Short Term Goals Short Term Goals Time Frame: Jul 16, 2016 Transfers (B,C,W/C) (FIM): 5 Gait (FIM): 4 Distance (FIM): 3=150 ft Gait Assistive Device: FWW PT Residential Goals Multiple Spindle Router Operator Goals PT Multiple Spindle Router Operator Goals Time Frame: Jul 23, 2016 Transfers (B,C,W/C) (FIM): 6 Sit to Lying (QC): 6 Lying-Sitting on Side/Bed(QC): 6 Sit to Stand (QC): 6 Chair/Mao-uu-Tkhtn Xfer(QC): 6 Does the Patient Walk: Yes Gait (FIM): 6 Gait distance (FIM): 3=150 ft Walk 50ft with 2 Turns (QC): 6 Walk 150 ft (QC): 6 Gait Level of Assist: 6 Gait Assistive Device: FWW Does the Pt use WC or Scooter?: No Stairs (FIM): 2 # of Steps: 4 Stairs Level Of Assist: 4 PT Plan Problem List Problem List: Activity Tolerance Treatment/Plan Treatment Plan: Continue Plan of Care Treatment Plan: Bed Mobility, Education, Functional Activity Stormy, Functional Strength, Gait, Safety, Therapeutic Exercise, Transfers Treatment Duration: Jul 23, 2016 Visits Per Week: 5-6 Safety Risks/Education Patient Education: Gait Training, Transfer Techniques, Correct Positioning, Safety Issues Teaching Recipient: Patient Teaching Methods: Discussion Response to Teaching: Verbalize Understanding Time/GCodes Time In: 1115 Time Out: 1135 Total Billed Treatment Time: 20 Total Billed Treatment visit, FA (20m) REJI AGRAWAL PTA Jul 13, 2016 12:42
--- NOTE | 2016-07-13 13:09 | Occupational Ther Daily Note ---
OT Current Status-Daily Note Subjective Pt in bed, states she will be discharging today. Agrees to therapy. Pt reports 5 /10 pain in bilateral hips Mental Status/Objective Functional [place] Measure 0=Not Assessed/NA 4=Minimal Assistance 1=Total Assistance 5=Supervision or Setup 2=Maximal Assistance 6=Modified [place] 3=Moderate Assistance 7=Complete [place] ADL-Treatment Pt is dressed, states she showered and dressed herself this morning. Pt supine to sit with modified independence. Pt demonstrated ability to doff/don socks without assistance while seated EOB. Sit to stand with modified independence. Gait to restroom with FWW, no LOB noted. Pt transferred to toilet with SBA. Used grab bars to stand from toilet with SBA. Pt states she has already completed grooming this morning without assistance. Pt returned to supine with modified independence. Plan is for pt to d/c home today. Pt has no questions or concerns at this time regarding ADLs or home safety. In bed with needs met after session. Functional [place] Measure 0=Not Assessed/NA 4=Minimal Assistance 1=Total Assistance 5=Supervision or Setup 2=Maximal Assistance 6=Modified [place] 3=Moderate Assistance 7=Complete IndependenceIRFPAI Quality Coding Scale 6 Independent with activity with or without an assistive device 5 Patient requires set up or clean up by helper. Patient completes activity by themselves 4 Supervision or touching assist (CGA). [place] provide cues , steadying assist 3 The helper provides less than half the effort to complete the activity 2 The helper provides more than half the effort to complete the activity 1 Dependent. The helper does all the effort to complete an activity 7 Patient refused to complete or attempt activity 9 The patient did not perform the activity before the current illness or injury 88 Not attempted due to Medical conditions or safety concerns Eating (FIM): 6 (Pt reports managing containers, cutting food, and feeding self without assistance.) Eating (QC): 6 Grooming (FIM): 6 (By pt report) Oral Hygiene (QC): 6 (By pt report) Toilet/Commode Transfer (FIM): 5 Toilet Transfer (QC): 5 OT Short Term Goals Short Term Goals Transfers (B,C,W/C) (FIM): 5 1=Demonstrate adherence to instructed precautions during ADL tasks. 2=Patient will verbalize/demonstrate understanding of assistive devices/ modifications for ADL. 3=Patient will improve strength/tolerance for activity to enable patient to perform ADL's. OT Longterm Goals Longterm Goals Time Frame: Jul 30, 2016 Oral Hygiene (QC): 6 Grooming(FIM): 6 Toileting Hygiene (QC): 6 Bathing(FIM): 6 Upper Body Dressing(FIM): 6 Lower Body Dressing(FIM): 6 Toileting(FIM): 6 Toilet/Commode Transfer(FIM): 6 Toilet/Commode Transfer (QC): 6 Additional Goals: 1-Demonstrate ADL Tasks, 2-Verbalize Understanding, 3- ImproveStrength/Stormy 1=Demonstrate adherence to instructed precautions during ADL tasks. 2=Patient will verbalize/demonstrate understanding of assistive devices/ modifications for ADL. 3=Patient will improve strength/tolerance for activity to enable patient to perform ADL's. OT Education/Plan Problem List/Assessment Pt demonstrates decreased mobility, strength, activity tolerance, and ADL functioning. Pt to benefit from skilled OT intervention for ADL training, transfers, strengthening, and home safety education to maximize level of function and allow safe discharge. Discharge Recommendations Plan/Recommendations: Continue POC Treatment Plan/Plan of Care Patient would benefit from OT for education, treatment and training to promote independence in ADL's, mobility, safety and/or upper extremity function for ADL' s. Plan of Care: ADL Retraining, Functional Mobility, UE Funct Exercise/Act Treatment Duration: Jul 30, 2016 Visits Per Week: 5 Agreement: Yes Rehab Potential: Good Time/GCodes Start Time: 11:43 Stop Time: 11:53 Total Time Billed (hr/min): 10 Billed Treatment Time 1 visit, ADL(10minutes) KAREN KATHLEEN OT Jul 13, 2016 13:09
--- NOTE | 2016-07-13 14:06 | Therapy Team Discharge Summary ---
Therapy Discharge Summary Discharge Recommendations Date of Discharge Jul 13, 2016 at 12:10 Occupational Therapy Pt admitted to [facility] status following acute hospitalization for UTI/sepsis. On admission pt required CGA for transfers and toileting. Skilled OT intervention focused on ADL training, transfers, and strengthening. Pt progressed with therapy and by discharge is completing feeding and grooming with modified independence and transfers with SBA. Pt met goals for feeding and grooming, but did not meet other OT LTG. Pt discharged home this date. Will D/C SWB OT at this time. PT Group Home Goals Rubber Roller Grinder Operator Goals PT Group Home Goals Time Frame: Jul 23, 2016 Transfers (B,C,W/C) (FIM): 6 Sit to Lying (QC): 6 Lying-Sitting on Side/Bed(QC): 6 Sit to Stand (QC): 6 Chair/Xhy-vz-Tbuym Xfer(QC): 6 Does the Patient Walk: Yes Gait (FIM): 6 Gait distance (FIM): 3=150 ft Walk 50ft with 2 Turns (QC): 6 Walk 150 ft (QC): 6 Gait Level of Assist: 6 Gait Assistive Device: FWW Does the Pt use WC or Scooter?: No Stairs (FIM): 2 # of Steps: 4 Stairs Level Of Assist: 4 OT Group Home Goals Group Home Goals Time Frame: Jul 30, 2016 Oral Hygiene (QC): 6 Grooming(FIM): 6 Toileting Hygiene (QC): 6 Bathing(FIM): 6 Upper Body Dressing(FIM): 6 Lower Body Dressing(FIM): 6 Toileting(FIM): 6 Toilet/Commode Transfer(FIM): 6 Toilet/Commode Transfer (QC): 6 Additional Goals: 1-Demonstrate ADL Tasks, 2-Verbalize Understanding, 3- ImproveStrength/Stormy 1=Demonstrate adherence to instructed precautions during ADL tasks. 2=Patient will verbalize/demonstrate understanding of assistive devices/ modifications for ADL. 3=Patient will improve strength/tolerance for activity to enable patient to perform ADL's. KAREN KATHLEEN OT Jul 13, 2016 14:06
--- NOTE | 2016-07-13 16:21 | Therapy Team Discharge Summary ---
Therapy Discharge Summary Discharge Recommendations Date of Discharge Jul 13, 2016 at 12:10 Physical Therapy This patient has been seen by skilled PT post acute admission for UTI/sepsis. Upon evaluation, she required min assist with transfers and gait for 50 ft with FWW with min assist. Treatment has consisted of functional strength and mobility as well as safety training. At discharge she was SBA with functional transfers and gait. Goals not fully met as she remains at a SBA level. Pt to discharge home at this time. PT Fire Behavior Analyst Goals Care Home Goals PT Care Home Goals Time Frame: Jul 23, 2016 Transfers (B,C,W/C) (FIM): 6 (scored 5--unmet) Sit to Lying (QC): 6 (scored 5, unmet) Lying-Sitting on Side/Bed(QC): 6 (scored 5) Sit to Stand (QC): 6 (scored 5, unmet) Chair/Cmz-jr-Husjh Xfer(QC): 6 (scored 5, unmet) Does the Patient Walk: Yes Gait (FIM): 6 (scored 5, unmet) Gait distance (FIM): 3=150 ft Walk 50ft with 2 Turns (QC): 6 (scored 5, unmet) Walk 150 ft (QC): 6 (scored 5, unmet) Gait Level of Assist: 6 Gait Assistive Device: FWW Does the Pt use WC or Scooter?: No Stairs (FIM): 2 # of Steps: 4 Stairs Level Of Assist: 4 OT Fire Behavior Analyst Goals Care Home Goals Time Frame: Jul 30, 2016 Oral Hygiene (QC): 6 Grooming(FIM): 6 Toileting Hygiene (QC): 6 Bathing(FIM): 6 Upper Body Dressing(FIM): 6 Lower Body Dressing(FIM): 6 Toileting(FIM): 6 Toilet/Commode Transfer(FIM): 6 Toilet/Commode Transfer (QC): 6 Additional Goals: 1-Demonstrate ADL Tasks, 2-Verbalize Understanding, 3- ImproveStrength/Stormy 1=Demonstrate adherence to instructed precautions during ADL tasks. 2=Patient will verbalize/demonstrate understanding of assistive devices/ modifications for ADL. 3=Patient will improve strength/tolerance for activity to enable patient to perform ADL's. NICHOL MONTIEL PT Jul 13, 2016 16:21
--- NOTE | 2016-07-14 09:29 | ECHOCARDIOGRAPHY REPORT ---
PROCEDURE PHYSICIAN: JACKIE DECKER DATE OF PROCEDURE: 07/10/2016 TWO DIMENSIONAL ECHOCARDIOGRAM REPORT PRIMARY PHYSICIAN: Dr. Nayak OTHER PHYSICIAN: Dr. Decker REFERRING PHYSICIAN: ORDERING PHYSICIAN: Dr. Ko INDICATION FOR THE PROCEDURE: Congestive heart failure. MEASUREMENTS DERIVED VALUES LV DIAMETER (LAX) NORMALS NORMALS Diastolic (3.6-5.2) Eject. Fract. (60%+/-6%) Systolic (2.3-3.9) Diastolic Vol. % Shortening (0.22-0.42) Systolic Vol. Aortic Root IVS THICKNESS Diastolic (0.6-1.1) LVPW THICKNESS Diastolic (0.6-1.1) LA DIAMETER Systolic (2.1-3.7) DESCRIPTION: 2 Dimensional echocardiography shows impairment of global left ventricular systolic function. There is distal septum anteroapical hypokinesis to akinesis. Left ventricular ejection fraction is approximately 30 to 35%. The aortic, mitral and tricuspid valve show good leaflet excursion. There is mild aortic valve sclerosis. There is mild to moderate mitral regurgitation. There appears to be trivial to mild tricuspid regurgitation. There is no Doppler evidence of significant valvular stenosis. Mild mitral and tricuspid regurgitation are seen. Pulmonary artery systolic pressure is estimated to be within normal limits. The superior vena cava is not dilated and exhibits inspiratory collapse. CONCLUSION: 1. Impairment of global left ventricular systolic function with distal septal and anteroapical hypokinesis to akinesis. Left ventricular ejection fraction 30 to 35%. 2. Mild to moderate mitral regurgitation. 3. Trivial to mild tricuspid regurgitation. 4. Mild aortic valve sclerosis without evidence of significant valvular stenosis. 5. Pulmonary artery systolic pressure is estimated to be normal limits. Job ID: [id number] Dictated Date: 07/13/2016 12:36:39 Compliance Program Manager Date: 07/14/2016 09:16:03 / deonna
== END 2016-07-13 12:10 | disposition home health service (06) | DRG 871 ==
LOC: 4TH 11:49
PROVIDERS: ADMIT Internal Medicine; ATTEND Internal Medicine
DX: A41.51 Sepsis due to Escherichia coli [E. coli] (principal); N39.0 Urinary tract infection, site not specified; N31.9 Neuromuscular dysfunction of bladder, unspecified; R33.9 Retention of urine, unspecified; R32 Unspecified urinary incontinence; N17.0 Acute kidney failure with tubular necrosis; I13.0 Hypertensive heart and chronic kidney disease with heart failure and stage 1 through stage 4 chronic kidney disease, or unspecified chronic kidney disease; I50.21 Acute systolic (congestive) heart failure; N18.9 Chronic kidney disease, unspecified; E78.00 Pure hypercholesterolemia, unspecified; K21.9 Gastro-esophageal reflux disease without esophagitis; M19.91 Primary osteoarthritis, unspecified site; Z87.891 Personal history of nicotine dependence
CPT/HCPCS: 36415; 80048; 80053; 83735; 85025; 93005; 93306; 94640; 94760

== ENCOUNTER → 2016-07-21 | Outpatient (CLI) | payer MEDICARE, OTHER ==
[~2016-07-21] MED LIST changes: +BETH25TA PO; +FURO-124 PO; +POTA-51 PO
--- OUTSIDE RECORDS SUMMARY | 2016-07-21 15:00 | XMS REPORT | Continuity of Care Document ---
Author Author [facility] Organization [facility] Address Unknown Phone Unavailable Care Team Providers Care Director Pediatric Name Role Phone EVAN NAYAK MD PCP Insurance Providers Payer Name Policy Number Subscriber Name Relationship [employer] [id number] Jessica Yu A 18 Self / Same As Patient Comm Crossover Enter Ins Name [id number] Jessica Yu A 18 Self / Same As Patient Advance Directives Directive Response Recorded Date/Time Advance Directives No 07/09/16 11:49am Health Care Power of Senior Report Developer No 07/09/16 11:49am Organ Donor No 07/09/16 11:49am Resuscitation Status Full Code 07/09/16 11:49am Chief Complaint and Reason for Visit Chief Complaint WEAKNESS Reason for Visit Urinary tract infection Problems Active Problems Medical Problem Onset Date Status Acute renal failure Unknown Acute Contusion Unknown Acute Elevated brain natriuretic peptide (BNP) level Unknown Acute Severe sepsis Unknown Acute Urinary retention Unknown Acute Urinary tract infection Unknown Acute Medications Current Home Medications Medication Dose Units Route Directions Days/Qty Instructions Start Date Nebivolol Hcl 5 Mg 5 Mg Oral Daily 05/12/16 Diphenhydramine Hcl 25 Mg 25 Mg Oral Twice A Day 05/12/16 Acetaminophen 650 Mg 1,300 Mg Oral Bedtime TAKES 2 (650MG) TABLETS Omeprazole 40 Mg 40 Mg Oral Daily 07/06/16 Enalapril Maleate 20 Mg 20 Mg Oral Daily 07/06/16 Simvastatin 20 Mg 20 Mg Oral Bedtime 07/06/16 Solifenacin Succinate 10 Mg 10 Mg Oral Daily 07/06/16 Bethanechol Chloride 25 Mg 25 Mg Oral Before Meals And At Bedtime 120 07/13/16 Furosemide 40 Mg 40 Mg Oral Daily 30 07/13/16 Potassium Chloride 20 Meq 20 Meq Oral Daily 30 07/13/16 Past Home Medications Medication Directions Ordered Status Enalapril Maleate 10 Mg Tablet, 12/29/07 Discontinued [Hydrochlorot 25MG] , 12/29/07 Discontinued [Bystolic 5MG] , 12/29/07 Discontinued [Tylenol] , 12/29/07 Discontinued Simvastatin 20 Mg Tablet, 20 Mg Oral Daily 06/08/14 Discontinued Enalapril Maleate 20 Mg Tablet, 20 Mg Oral Daily 06/08/14 Discontinued Nebivolol Hcl 5 Mg Tablet, 5 Each Oral Daily 06/08/14 Discontinued Omeprazole 20 Mg Capsule.dr, 20 Mg Oral Daily 06/08/14 Discontinued Hydrocodone Bit/Acetaminophen 1 Tab Tablet, 1 Tab Oral Every 6 Hours as needed for Pain 06/08/14 Discontinued Diclofenac Potassium 25 Mg Capsule, 25 Mg Oral Twice A Day 05/12/16 Discontinued Acetaminophen 325 Mg Tablet, 650 Mg Oral Twice A Day 05/12/16 Discontinued Hydrocodone/Acetaminophen 1 Each Tablet, 2 Each Oral Every 6 Hours as needed for Pain 05/19/16 Discontinued Cephalexin 500 Mg Capsule, 500 Mg Oral Four Times Daily 05/25/16 Discontinued Social History Social History Problem Response Recorded Date/Time Alcohol Use Denies Use 06/08/2014 1:27pm Recreational Drug Use No 06/08/2014 1:27pm Recent Foreign Travel No 07/09/2016 11:56am Sexually Transmitted Disease No 07/06/2016 1:40am HIV/AIDS No 07/06/2016 1:40am Type Used Cigarettes 07/13/2016 1:32pm Recent Hopitalizations No 07/06/2016 1:40am Sexually Transmitted Disease No 07/06/2016 1:40am Hospital Discharge Instructions Patient Instructions Physician Instructions Patient Instructions/FollowUp: Obtain follow-up with Dr. Nayak in one week, Dr. Kothari in 2 weeks, Dr. Hill in 2 weeks, Dr. Decker in 2 weeks Patient Problems: Sepsis with pyelonephritis Urinary retention [facility], [place] DISCHARGE ORDERS Height (Feet): 5 Height (Inches): 7.00 Weight (Pounds): 158 Weight (Ounces): 6.0 Reason Pt Homebound weakness following sepsis episode I Have Seen Pt [id number]-[id number]: Yes Date of Face to Face: Jul 13, 2016 Discharged To: Home Diagnosis/Conditions HH Order: Medication and ministration Monitor for urinary retention report to urology Teach how to do self catheters *I certify that based on my findings, the following services are medically necessary Home Health Services: Services: Nursing Services, Breast Buffer-Evaluate & Treat, Physical Therapy-Evaluate & Treat, Speech Language-Evaluate & Treat My clinical findings support the need for the above services; see Diagnosis. Dicharge Diet: Cardiac Diet, Low Sodium Diet Daily Activity as Tolerated: Yes New, Converted, or Re-newed RX: Transmited to Pharmacy I certify that this patient is under my care and that I, a nurse practitioner or a physician; a residential assistant working with me, had a face to face encounter that - meets the physician face to face encounter requirements with this patient as dated. Care Plan Patient Instructions:: Obtain follow-up with Dr. Nayak in one week, Dr. Kothari in 2 weeks, in 2 weeks, Dr. Decker in 2 weeks Patient Problems: Sepsis with pyelonephritisUrinary retention Plan of Care Discharge Date 07/13/16 12:10pm Disposition 09 ADMITTED INPATIENT Instructions/Education Provided Urinary Tract Infections in Adults Forms Provided PDI Medical Prescriptions See Medication Section Follow-up Orders BMP-Basic Metabolic Panel Referrals Dr. Decker (Unspecified) - 1 Week Reason(s) for Referral: Elevated brain natriuretic peptide (BNP) level (Unspecified) - Reason(s) for Referral: FOLLOW UP WITH DR. DECKER ON Wednesday AT 11:15 A.M. FOLLOW UP WITH DR. NAYAK ON AT 3:30 P.M. FOLLOW UP WITH DR. DECKER Wednesday AT 2:00 P.M. FOLLOW UP WITH DR. KOTHARI ON Wednesday AT 2:15 P.M. Care Plan and Goals See Discharge Instructions Section Functional Status Query Response Date Recorded Patient Orientation Person Normal For Age July 13, 2016 12:55pm Patient Orientation Person Place Time Situation Eyes Open July 13, 2016 1:32pm Comprehension Ability Understands Concepts July 13, 2016 9:00am Allergies, Adverse Reactions, Alerts Allergen Type Severity Reaction Status Last Updated Penicillins ([id number]) Allergy Severe FACE/EYE SWELLING Active 05/12/16 Immunizations No immunization records. Vital Signs Acute Vital Signs Vital Response Date/Time Temperature (Fahrenheit) 98.3 degrees F (97.6 - 99.5) 07/13/2016 6:00am Temperature (Calculated Celsius) 36.51352 degrees C (36.4 - 37.5) 07/13/2016 6:00am Temperature Source Tympanic 07/13/2016 6:00am Pulse Rate (adult) 95 bpm (60 - 90) 07/13/2016 6:00am Respiratory Rate 20 bpm (12 - 24) 07/13/2016 6:00am O2 Sat by Pulse Oximetry 96 % (88 - 100) 07/13/2016 6:00am Blood Pressure 157/75 mm Hg 07/13/2016 6:00am Blood Pressure Mean 102 mm Hg 07/13/2016 6:00am Pain Numeric Pain Scale 0-No Pain 07/13/2016 12:55pm Height (Feet) 5 feet 07/06/2016 1:16am Height (Inches) 7.00 inches 07/06/2016 1:16am Height (Calculated Centimeters) 170.431044 cm 07/06/2016 1:16am Weight (Pounds) 158 pounds 07/08/2016 6:00am Weight (Ounces) 6.0 oz 07/08/2016 6:00am Weight (Calculated Grams) 88821.692 gm 07/08/2016 6:00am Weight (Calculated Kilograms) 71.408887 kilograms 07/08/2016 6:00am Calculated BMI 24.7 07/06/2016 1:16am Capillary Refill Capillary Refill Less Than 3 Seconds 07/08/2016 8:00pm Results Pending Laboratory Results Test Name Collection Date/Time Pending Microbiology Results Procedure Source Collection Date/Time Procedures Procedure Status Date Provider(s) Color Doppler echocardiography Active 07/10/16 ERICKA HALE DO Tracing only of electrocardiogram Completed 07/10/16 JACKIE DECKER MD FACP FAC CCDS Encounters Encounter Location Arrival/Admit Date Discharge/Depart Date Attending Provider Admitted Inpatient [facility] 07/09/16 11:49am ERICKA HALE DO Discharged Inpatient [facility] 07/06/16 12:27am 11:39am ERICKA HALE DO Registered Clinic [facility] 07/01/16 10:16am EVAN NAYAK MD Recent Diagnosis Urinary tract infection
[2016-07-21 15:17] LABS: CALCIUM 9.5 MG/DL (8.5-10.1); CREATININE SERUM 2.5 MG/DL (0.60-1.30); POTASSIUM 4.7 MMOL/L (3.6-5.0)
== END ==
LOC: HH 14:57
PROVIDERS: ATTEND Internal Medicine Cardiovascular Disease
DX: R79.89 Other specified abnormal findings of blood chemistry (principal)
CPT/HCPCS: 80048

== ENCOUNTER → 2016-07-27 | Outpatient (CLI) | payer MEDICARE, OTHER ==
--- OUTSIDE RECORDS SUMMARY | 2016-07-27 11:32 | XMS REPORT | Continuity of Care Document ---
Author Author [facility] Organization [facility] Address Unknown Phone Unavailable Care Team Providers Care Quality Assurance Inspector Name Role Phone EVAN NAYAK MD PCP Insurance Providers Payer Name Policy Number Subscriber Name Relationship Wps Medicare [id number] Jessica Yu A 18 Self / Same As Patient Comm Crossover Enter Ins Name [id number] Jessica Yu A 18 Self / Same As Patient Advance Directives Directive Response Recorded Date/Time Advance Directives No 07/09/16 11:49am Health Care Power of Linux System Engineer No 07/09/16 11:49am Organ Donor No 07/09/16 [...] Problems: Sepsis with pyelonephritis Urinary retention [facility] [place] DISCHARGE ORDERS Height (Feet): 5 Height (Inches): 7.00 Weight (Pounds): 158 Weight (Ounces): 6.0 Reason Pt Homebound weakness following sepsis episode I Have Seen Pt Whid-ww-Xxgn: Yes Date of Face to Face: Jul 13, 2016 Discharged To: Home Diagnosis/Conditions HH Order: Medication and ministration Monitor for urinary retention report to urology Teach how to do self catheters *I certify that based on my findings, the following services are medically necessary Home Health Services: Services: Nursing Services, Patent Solicitor-Evaluate & Treat, Physical Therapy-Evaluate & Treat, Speech Language-Evaluate & Treat My clinical findings support the need for the above services; see Diagnosis. Dicharge Diet: Cardiac Diet, Low Sodium Diet Daily Activity as Tolerated: Yes New, Converted, or Re-newed RX: Transmited to Pharmacy I certify that this patient is under my care and that I, a nurse practitioner or a physician; a miner assistant working with me, had a face [...] Type Severity Reaction Status Last Updated Penicillins ([id number]) Allergy Severe FACE/EYE SWELLING Active 05/12/16 Immunizations No immunization records. Vital Signs Acute Vital Signs Vital Response Date/Time Temperature (Fahrenheit) 98.3 degrees F (97.6 - 99.5) 07/13/2016 6:00am Temperature (Calculated Celsius) 36.64389 degrees C (36.4 - 37.5) 07/13/2016 6:00am [...] 7.00 inches 07/06/2016 1:16am Height (Calculated Centimeters) 170.492443 cm 07/06/2016 1:16am Weight (Pounds) 158 pounds 07/08/2016 6:00am Weight (Ounces) 6.0 oz 07/08/2016 6:00am Weight (Calculated Grams) 49767.692 gm 07/08/2016 6:00am Weight (Calculated Kilograms) 71.864750 kilograms 07/08/2016 6:00am Calculated BMI 24.7 07/06/2016 [...] Discharge/Depart Date Attending Provider Admitted Inpatient [facility] 07/09/16 11:49am ERICKA HALE DO Discharged Inpatient [facility] 07/06/16 12:27am 11:39am ERICKA HALE DO Registered Clinic [facility] 07/01/16 10:16am EVAN NAYAK MD Recent Diagnosis Urinary tract infection
--- NOTE | 2016-07-27 12:52 | Diagnostic Imaging Report ---
PROCEDURE: MRI lumbar spine. TECHNIQUE: Multiplanar, multisequence MRI of the lumbar spine was performed without contrast. INDICATION: Bilateral hip pain. FINDINGS: The alignment of the lumbar spine is normal. The vertebral body heights are well maintained. There is no spondylolysis or spondylolisthesis. No fractures are identified. The conus medullaris is seen at L1 and is normal in appearance. The T12-L1 disc is unremarkable. At L1-L2, there is slight loss of disc height and signal intensity with some minimal annular bulging. There is slight effacement of the ventral thecal sac and minimal neuroforaminal encroachment. At L2-L3, there is minimal annular bulging. At L3-L4, there is broad-based annular bulging and mild facet disease. There is slight effacement of the ventral thecal sac and mild right neuroforaminal encroachment. At L4-L5, there is some mild broad-based annular bulging and facet disease. There is slight effacement of the ventral thecal sac and mild left neuroforaminal encroachment. The L5-S1 disc is unremarkable. The abdominal aorta is nonaneurysmal. There is probable bilateral hydronephrosis. This could be better evaluated with renal ultrasound. IMPRESSION: Multilevel degenerative changes as described above. Probable bilateral hydronephrosis. Better evaluated pelvic with a renal ultrasound Dictated by: Dictated on workstation # [id number]
== END ==
LOC: RAD 11:27
PROVIDERS: ATTEND Family Medicine
DX: M54.41 Lumbago with sciatica, right side (principal); M54.42 Lumbago with sciatica, left side
CPT/HCPCS: 72148

== ENCOUNTER 2016-08-05 15:11 | Emergency (ER) | payer MEDICARE, OTHER ==
[~2016-08-05] VITALS: Ht 170.2 cm; Wt 66.2 kg
--- OUTSIDE RECORDS SUMMARY | 2016-08-05 15:16 | XMS REPORT | Continuity of Care Document ---
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 Name Role Phone EVAN NAYAK MD PCP Insurance Providers Payer Name Policy Number Subscriber Name Relationship Wps Medicare [id number] Jessica Yu A 18 Self / Same As Patient Comm Crossover Enter Ins Name [id number] Jessica Yu A 20 Self / Same As Patient Advance Directives Directive Response Recorded Date/Time Advance Directives No 07/09/16 11:49am Health Care Power of Rehabilitation Clerk No 07/09/16 11:49am Organ Donor No 07/09/16 [...] Problems: Sepsis with pyelonephritis Urinary retention [facility] [place], [place] DISCHARGE ORDERS Height (Feet): 5 Height (Inches): 7.00 Weight (Pounds): 158 Weight (Ounces): 6.0 Reason Pt Homebound weakness following sepsis episode I Have Seen Pt Blog-ep-Hkxf: Yes Date of Face to Face: Jul 13, 2016 Discharged To: Home Diagnosis/Conditions HH Order: Medication and ministration Monitor for urinary retention report to urology Teach how to do self catheters *I certify that based on my findings, the following services are medically necessary Home Health Services: Services: Nursing Services, Agricultural Agent-Evaluate & Treat, Physical Therapy-Evaluate & Treat, Speech Language-Evaluate & Treat My clinical findings support the need for the above services; see Diagnosis. Dicharge Diet: Cardiac Diet, Low Sodium Diet Daily Activity as Tolerated: Yes New, Converted, or Re-newed RX: Transmited to Pharmacy I certify that this patient is under my care and that I, a nurse practitioner or a physician; a communication assistant working with me, had a face [...] Type Severity Reaction Status Last Updated Penicillins ([id number]) Allergy Severe FACE/EYE SWELLING Active 05/12/16 Immunizations No immunization records. Vital Signs Acute Vital Signs Vital Response Date/Time Temperature (Fahrenheit) 98.3 degrees F (97.6 - 99.5) 07/13/2016 6:00am Temperature (Calculated Celsius) 36.92665 degrees C (36.4 - 37.5) 07/13/2016 6:00am [...] 7.00 inches 07/06/2016 1:16am Height (Calculated Centimeters) 170.349339 cm 07/06/2016 1:16am Weight (Pounds) 158 pounds 07/08/2016 6:00am Weight (Ounces) 6.0 oz 07/08/2016 6:00am Weight (Calculated Grams) 90356.692 gm 07/08/2016 6:00am Weight (Calculated Kilograms) 71.818906 kilograms 07/08/2016 6:00am Calculated BMI 24.7 07/06/2016 [...] Discharge/Depart Date Attending Provider Admitted Inpatient [facility] 07/09/16 11:49am ERICKA HALE DO Discharged Inpatient [facility] 07/06/16 12:27am 11:39am ERICKA HALE DO Registered Clinic [facility] 07/01/16 10:16am EVAN NAYAK MD Recent Diagnosis Urinary tract infection
[2016-08-05 16:10] LABS: BASOPHILS % (AUTO) 0 % (0-10); EOSINOPHILS # (AUTO) 0.1 10^3/uL (0.0-0.3); EOSINOPHILS % (AUTO) 1 % (0-10); LYMPHOCYTES # (AUTO) 2.3 X 10^3 (1.0-4.0); LYMPHOCYTES % (AUTO) 21 % (12-44); MEAN CORPUSCULAR HEMOGLOBIN 30 PG (25-34); MEAN CORPUSCULAR HGB CONC 33 G/DL (32-36); MEAN CORPUSCULAR VOLUME 91 FL (80-99); MEAN PLATELET VOLUME 9.7 FL (7.4-10.4); MONOCYTES # (AUTO) 0.8 X 10^3 (0.0-1.0); MONOCYTES % (AUTO) 7 % (0-12); NEUTROPHILS # (AUTO) 7.9 X 10^3 (1.8-7.8); NEUTROPHILS % (AUTO) 71 % (42-75); PLATELET COUNT 254 10^3/uL (130-400); RED BLOOD COUNT 3.93 10^6/uL (4.35-5.85); RED CELL DISTRIBUTION WIDTH 14.1 % (10.0-14.5); WHITE BLOOD COUNT 11.1 10^3/uL (4.3-11.0)
[2016-08-05 16:20] LABS: ALBUMIN 4.1 G/DL (3.2-4.5); BILIRUBIN,TOTAL 0.2 MG/DL (0.1-1.0); CALCIUM 9.2 MG/DL (8.5-10.1); CREATININE SERUM 4.68 MG/DL (0.60-1.30); MAGNESIUM 2.4 MG/DL (1.8-2.4); TOTAL PROTEIN 6.8 G/DL (6.4-8.2)
[2016-08-05 16:22] LABS: POTASSIUM 6.5 MMOL/L (3.6-5.0)
[2016-08-05] MEDS ORDERED: NS IV 1000 ML 1,000 ML IV ONE ×2 (16:25→16:43)
[2016-08-05] MEDS ORDERED: SOD POLYSTERENE 15 GM/60 ML (KAYEXALATE) UNIT DOSE PO ONE (16:30)
--- NOTE | 2016-08-05 16:43 | ED General ---
General Chief Complaint: General Problems/Pain Stated Complaint: FEVER,CHILLS Nursing Triage Note: AMB TO ROOM WITH FAMILY REPORTS SHE HAS HAD CHILLS FOR [address] NAYAK YESTERDAY LAB DRAWN. WAS CALLED TODAY BY OFFICE AND TOLD TO GO TO ER. DUE LAB ABNORMAL Nursing Sepsis Screen: No Definite Risk Source of Information: Patient, Old Records Exam Limitations: No Limitations History of Present Illness Time Seen by Provider: 15:35 Initial Comments This 76-year-old woman presents to the emergency room at the direction of her primary care provider (Dr. Nayak) after labs were obtained earlier in the day. She was found to be in significant renal failure with a creatinine of 4.5 and a BUN of 82. Labs were obtained from [facility] and reviewed. Patient has been significantly diaphoretic recently with chills. She denies fever. She has had some runny nose and cough for about 2 weeks. She had vomiting yesterday which resolved without treatment. She is a little nauseous today. She denies any urinary changes. No diarrhea. Patient's baseline creatinine ranges from 1.4- 2.5. Patient had a recent admission for UTI with sepsis complicated by heart failure. Allergies and Home Medications Allergies Coded Allergies: Penicillins (Verified Allergy, Severe, FACE/EYE SWELLING, 05/12/16) Home Medications Acetaminophen 650 Mg Tablet.er 1,300 MG PO HS (Reported) TAKES 2 (650MG) TABLETS Bethanechol Chloride 25 Mg Tablet #120 25 MG PO ACHS Prescribed by: ERICKA HALE on 07/13/16 1115 Diphenhydramine HCl 25 Mg Capsule 25 MG PO BID (Reported) Enalapril Maleate 20 Mg Tablet 20 MG PO DAILY (Reported) Furosemide 40 Mg Tablet #30 40 MG PO DAILY Prescribed by: VIRGIL GUZMAN on 07/13/16 1231 Nebivolol HCl 5 Mg Tablet 5 MG PO DAILY (Reported) Omeprazole 40 Mg Capsule.dr 40 MG PO DAILY (Reported) Potassium Chloride 20 Meq Tablet.er #30 20 MEQ PO DAILY Prescribed by: VIRGIL GUZMAN on 07/13/16 1231 Simvastatin 20 Mg Tablet 20 MG PO HS (Reported) Solifenacin Succinate 10 Mg Tablet 10 MG PO DAILY (Reported) Constitutional: see HPI EENTM: see HPI Respiratory: see HPI Cardiovascular: no symptoms reported Gastrointestinal: see HPI Genitourinary: no symptoms reported : No Musculoskeletal: no symptoms reported Skin: no symptoms reported Psychiatric/Neurological: No Symptoms Reported Hematologic/Lymphatic: No Symptoms Reported Past Kvpattg-Vauqxe-Fmyktd Hx Patient Social History Alcohol Use: Denies Use Recreational Drug Use: No Smoking Status: Former Smoker Type Used: Cigarettes Recent Foreign Travel: No Contact w/Someone Who Travel: No Recent Infectious Disease Expo: No Recent Hopitalizations: No Immunizations Up To Date Date of Pneumonia Vaccine: Jun 07, 2012 Date of Influenza Vaccine: Apr 27, 2016 Seasonal Allergies Seasonal Allergies: Yes Surgeries HX Surgeries: Yes Surgeries: Bladder Surgery, Hysterectomy Respiratory Hx Respiratory Disorders: No Cardiovascular Hx Cardiac Disorders: Yes (congestive heart failure with ejection fraction of 30-35 percent) Cardiac Disorders: High Cholesterol, Hypertension Neurological Hx Neurological Disorders: No Reproductive System Hx Reproductive Disorders: Yes (GENITAL PROLAPSE) Sexually Transmitted Disease: No HIV/AIDS: No Genitourinary Hx Genitourinary Disorders: Yes (SYDNIE, ) Genitourinary Disorders: Renal Failure (CKD), UTI-Chronic Gastrointestinal Hx Gastrointestinal Disorders: Yes (HAS TAKEN OMEPRAZOLE SINCE EGD WITH DILATION) Gastrointestinal Disorders: Gastroesophageal Reflux Musculoskeletal Hx Musculoskeletal Disorders: Yes Musculoskeletal Disorders: Arthritis, Chronic Back Pain Endocrine Hx Endocrine Disorders: No HEENT HX ENT Disorders: Yes (GLASSES, DENTURES) Loss of Vision: Bilateral Hearing Impairment: Denies Cancer Hx Cancer: No Psychosocial Hx Psychiatric Problems: No Integumentary HX Skin/Integumentary Disorder: No Blood Transfusions Hx Blood Disorders: No Adverse Reaction to a Blood Tr: No (N/A) Family Medical History Significant Family History: Cancer Family Medial History: Cardiovascular disease 19 MOTHER (heart problems) Neoplasm G8 SISTER (cancer but does not know what kind) Osteoporosis G8 SISTER (polio as child) Physical Exam Vital Signs Vital Sign - Last 12Hours 08/05/16 15:30 Temp 96.6 Pulse 76 Resp 18 B/P 123/88 Pulse Ox 100 O2 Delivery Room Air Capillary Refill : Less Than 3 Seconds General Appearance: WD/WN Mild Distress HEENT: PERRL/EOMI Normal ENT Inspection Other (oropharynx somewhat dry) Neck: Normal Inspection Respiratory: Lungs Clear Normal Breath Sounds No Accessory Muscle Use No Respiratory Distress Cardiovascular: Regular Rate, Rhythm No Edema No Murmur Gastrointestinal: Normal Bowel Sounds Non Tender Soft Extremity: Normal Inspection No Pedal Edema Neurologic/Psychiatric: Alert Oriented x3 No Motor/Sensory Deficits Normal Mood/Affect primary therapist II-XII Norm as Tested Skin: Normal Color Diaphoresis Progress/Results/Core Measures Results/Orders Lab Results Laboratory Tests Test 08/05/16 15:45 08/05/16 17:19 08/05/16 17:46 Range/Units Alanine Aminotransferase (ALT/SGPT) 12 0-55 U/L Albumin 4.1 3.2-4.5 G/DL Alkaline Phosphatase 50 40-136 U/L Anion Gap 12 5-14 MMOL/L Aspartate Amino Transf (AST/SGOT) 17 5-34 U/L BUN/Creatinine Ratio 18 Basophils # (Auto) 0.0 0.0-0.1 10^3/uL Basophils (%) (Auto) 0 0-10 % Blood Urea Nitrogen 84 H 7-18 MG/DL Calcium Level 9.2 8.5-10.1 MG/DL Carbon Dioxide Level 11 L 21-32 MMOL/L Chloride Level 115 H 98-107 MMOL/L Creatinine 4.68 H 0.60-1.30 MG/DL Eosinophils # (Auto) 0.1 0.0-0.3 10^3/uL Eosinophils (%) (Auto) 1 0-10 % Estimat Glomerular Filtration Rate 9 Glucose Level 97 70-105 MG/DL Hematocrit 36 35-52 % Hemoglobin 11.6 11.5-16.0 G/DL Lymphocytes # (Auto) 2.3 1.0-4.0 X 10^3 Lymphocytes (%) (Auto) 21 12-44 % Magnesium Level 2.4 1.8-2.4 MG/DL Mean Corpuscular Hemoglobin 30 25-34 PG Mean Corpuscular Hemoglobin Concent 33 32-36 G/DL Mean Corpuscular Volume 91 80-99 FL Mean Platelet Volume 9.7 7.4-10.4 FL Monocytes # (Auto) 0.8 0.0-1.0 X 10^3 Monocytes (%) (Auto) 7 0-12 % Neutrophils # (Auto) 7.9 H 1.8-7.8 X 10^3 Neutrophils (%) (Auto) 71 42-75 % Platelet Count 254 130-400 10^3/uL Potassium Level 6.5 *H 3.6-5.0 MMOL/L Red Blood Count 3.93 L 4.35-5.85 10^6/uL Red Cell Distribution Width 14.1 10.0-14.5 % Sodium Level 138 135-145 MMOL/L Total Bilirubin 0.2 0.1-1.0 MG/DL Total Protein 6.8 6.4-8.2 G/DL White Blood Count 11.1 H 4.3-11.0 10^3/uL Urine Bacteria MODERATE H /HPF Urine Bilirubin 1+ H NEGATIVE Urine Casts NONE /LPF Urine Clarity SLIGHTLY CLOUDY Urine Color YELLOW Urine Crystals NONE /LPF Urine Culture Indicated YES Urine Glucose (UA) NEGATIVE NEGATIVE Urine Ketones NEGATIVE NEGATIVE Urine Leukocyte Esterase 3+ H NEGATIVE Urine Mucus NEGATIVE /LPF Urine Nitrite NEGATIVE NEGATIVE Urine Protein 2+ H NEGATIVE Urine RBC 2-5 H /HPF Urine RBC (Auto) 2+ H NEGATIVE Urine Specific [place] 1.015 L 1.016-1.022 Urine Squamous Epithelial Cells 0-2 /HPF Urine Urobilinogen NORMAL NORMAL MG/DL Urine WBC 25-50 H /HPF Urine pH 6 5-9 Micro Results Microbiology 08/05/16 Influenza Types A,B Antigen (LUCY) - Final, Complete My Orders Orders-JUANA ADAMS MD Ua Culture If Indicated (08/05/16 15:43) Influenza A And B Antigens (08/05/16 15:43) Chest Pa/Lat (2 View) (08/05/16 15:43) Saline Lock/Iv-Start (08/05/16 15:43) Cbc With Automated Diff (08/05/16 16:02) Comprehensive Metabolic Panel (08/05/16 16:02) Magnesium (08/05/16 16:02) Saline Lock/Iv-Start (08/05/16 16:02) Sodium Polystyrene Sulfonate (Kayexalate (08/05/16 16:30) Ns Iv 1000 Ml (Sodium Chloride 0.9%) (08/05/16 16:25) Ekg Tracing (08/05/16 16:25) Monitor-Rhythm Ecg Trace Only (08/05/16 16:25) Ns Iv 1000 Ml (Sodium Chloride 0.9%) (08/05/16 16:43) Lactic Acid Analyzer (08/05/16 17:26) Blood Culture (08/05/16 17:26) Meropenem (Merrem 500 Mg) (08/05/16 17:45) Urine Culture (08/05/16 17:19) Medications Given in ED Current Medications Medications Dose Ordered Sig/Claude Route Start Time Stop Time Status Last Admin Dose Admin Sodium Polystyrene Sulfonate 15 gm 15 gm ONCE ONCE PO 08/05/16 16:30 08/05/16 16:31 DC 08/05/16 16:39 15 GM Sodium Chloride 1,000 ml @ 0 mls/hr Q0M ONCE IV 08/05/16 16:25 08/05/16 16:26 DC 08/05/16 16:39 1,000 MLS/HR Sodium Chloride 1,000 ml @ 0 mls/hr Q0M ONCE IV 08/05/16 16:43 08/05/16 16:45 DC 08/05/16 17:07 1,000 MLS/HR Vital Signs/I&O Vital Sign - Last 12Hours 08/05/16 15:30 Temp 96.6 Pulse 76 Resp 18 B/P 123/88 Pulse Ox 100 O2 Delivery Room Air Blood Pressure Mean: 100 Progress Note #1: Time: 17:22 Progress Note Patient now has 2 L of IV fluids infusing. She has significant acute renal failure beyond her baseline CKD. Kayexalate was ordered for treatment of hyperkalemia. Patient has been diaphoretic but no source of infection has been found yet. UA is pending as patient has not produced urine. I discussed this case with Dr. Hale who is familiar with her from a prior admission. Patient had severe sepsis and renal impairment at that time as well. Patient's care could be complicated by her history of heart failure. Her echocardiogram within the past month demonstrated an ejection fraction of 30-[address] Hale feels this patient would be most appropriately cared for in a tertiary care center with nephrology services. She recommends transfer. Once UA is obtained, I will contact a referral center. Progress Note #2: Time: 17:46 Progress Note Urine was obtained and urinary tract infection identified. Blood cultures and lactic acid are being drawn. Meropenem has been ordered after review of prior urine culture. Although patient is diaphoretic, she does not meet SIRS criteria and is therefore not considered septic. Patient requests transfer to [facility]. Care of this patient will be complicated due to heart failure in combination with severe renal failure. Renal dose of meropenem has been ordered. Progress Note #3: Time: 17:59 Progress Note Case was reviewed with Dr. Fuentes at [facility] in [place]. He excepts the transfer. He requests no further therapies be administered before transfer. ECG Initial ECG Impression Date: Aug 05, 2016 Initial ECG Impression Time: 16:50 Initial ECG Rate: 84 Comment Sinus rhythm with incomplete left bundle branch block. No ST elevation or depression. Diagnostic Imaging Diagonstic Imaging: Xray Plain Films/CT/US/NM/MRI: chest Comments NAME: [facility] REC#: [id number] PT STATUS: REG ER : 1940 PHYSICIAN: JUANA ADAMS MD ADMIT DATE: 08/05/16/ER Draft Date of Exam:08/05/16 CHEST PA/LAT (2 VIEW) PA and lateral views of the chest. INDICATION: Chills for two weeks. FINDINGS: The lungs are clear. The heart size is normal. No effusion or pneumothorax. The mediastinum and nikki appear unremarkable. IMPRESSION: Unremarkable exam. Dictated on workstation # [id number] Dict: 08/05/16 1651 Trans: 08/05/16 1654 KB [id number] Interpreted by: CAREY FLOWERS MD Departure Impression Impression: Primary Impression: Acute on chronic renal failure Additional Impressions: Hyperkalemia Urinary tract infection Qualified Code: N39.0 - Urinary tract infection, site not specified Disposition: XFER [facility] HOSP Condition: Improved Departure-Patient Inst. Referrals: EVAN NAYAK MD (PCP/Family) Primary Care Physician JUANA ADAMS MD Aug 05, 2016 16:43
--- NOTE | 2016-08-05 16:55 | Diagnostic Imaging Report ---
PA and lateral views of the chest. INDICATION: Chills for two weeks. FINDINGS: The lungs are clear. The heart size is normal. No effusion or pneumothorax. The mediastinum and nikki appear unremarkable. IMPRESSION: Unremarkable exam. Dictated by: Dictated on workstation # [id number]
[2016-08-05 17:27] LABS: KETONES,URINE NEGATIVE (NEGATIVE); LEUKOCYTE ESTERASE ,URINE 3+ (NEGATIVE); NITRITE,URINE NEGATIVE (NEGATIVE); PH,URINE 6 (5-9); PROTEIN,URINE 2+ (NEGATIVE); UROBILINOGEN,URINE NORMAL (NORMAL)
[2016-08-05 17:32] LABS: BILIRUBIN,URINE 1+ (NEGATIVE)
[2016-08-05 17:42] LABS: SQUAMOUS EPITHELIAL CELL,UR 0-2 /HPF; WBC,URINE 25-50 /HPF
[2016-08-05] MEDS ORDERED: NS IV ONE (17:45)
[2016-08-05] MEDS ORDERED: MEROPENEM IV ONE (17:45)
[2016-08-05 19:19] VITALS: BP 121/63
== END 2016-08-05 19:19 | disposition short-term general hospital (02) ==
LOC: EDUNIT# 15:11 → ER 15:12
DX: N17.9 Acute kidney failure, unspecified (principal); E87.5 Hyperkalemia; I50.9 Heart failure, unspecified; N39.0 Urinary tract infection, site not specified; I10 Essential (primary) hypertension; R61 Generalized hyperhidrosis; I44.7 Left bundle-branch block, unspecified; Z79.899 Other long term (current) drug therapy
CPT/HCPCS: 36415; 51701; 71020; 80053; 81000; 83605; 83735; 85025; 87040; 87088; 87804; 93005; 93041; 96361; 96365

== ENCOUNTER → 2016-08-19 | Outpatient (CLI) | payer MEDICARE, OTHER ==
--- OUTSIDE RECORDS SUMMARY | 2016-08-19 10:16 | XMS REPORT | Continuity of Care Document ---
Author Author [facility] Organization [facility] Address Unknown Phone Unavailable Care Team Providers Care Manager Demand Name Role Phone EVAN MURO MD PCP Insurance Providers Payer Name Policy Number Subscriber Name Relationship Wps Medicare [id number] Jessica Yu A 18 Self / Same As Patient Comm Crossover Enter Ins Name [id number] Jessica Yu 20 Self / Same As Patient Advance Directives Directive Response Recorded Date/Time Advance Directives No 08/05/16 3:37pm Health Care Power of Paper Counter No 08/05/16 3:37pm Organ Donor No 08/05/16 3:37pm Resuscitation Status Full Code 08/05/16 3:37pm Chief Complaint and Reason for Visit Chief Complaint General Problems/Pain Reason for Visit Urinary tract infection [id number] Hyperkalemia Problems Active Problems Medical Problem Onset Date Status Acute on chronic renal failure Unknown Acute Acute renal failure Unknown Acute Contusion Unknown Acute Elevated brain natriuretic peptide (BNP) level Unknown Acute Hyperkalemia Unknown Acute Severe sepsis Unknown Acute Urinary [...] No 06/08/2014 1:27pm Recent Foreign Travel No 08/05/2016 3:30pm Recent Infectious Disease Exposure No 08/05/2016 3:30pm Hospitalization with Isolation Denies 08/05/2016 3:30pm Sexually Transmitted Disease No 08/05/2016 3:37pm HIV/AIDS No 08/05/2016 3:37pm Smoking Status Former Smoker 08/05/2016 3:37pm Type Used Cigarettes 08/05/2016 3:37pm Recent Hopitalizations No 08/05/2016 3:37pm Sexually Transmitted Disease No 08/05/2016 3:37pm Hospitalization with Isolation Denies 08/05/2016 3:30pm Query Response Start Date Stop Date Smoking Status Former Smoker Hospital Discharge Instructions No hospital discharge instructions. Plan of Care Discharge Date 08/05/16 7:19pm Disposition 02 XFER S[facility]-TRM HOSP Condition at Discharge Improved Prescriptions See Medication Section Referrals EVAN MURO MD - Primary Care Physician Functional Status No functional status results. Allergies, Adverse Reactions, Alerts Allergen Type Severity Reaction Status Last Updated Penicillins ([id number]) Allergy Severe FACE/EYE SWELLING Active 05/12/16 Immunizations No immunization records. Vital Signs Acute Vital Signs Vital Response Date/Time Temperature (Fahrenheit) 96.6 degrees F (97.6 - 99.5) 08/05/2016 3:30pm Temperature (Calculated Celsius) 35.69840 degrees C (36.4 - 37.5) 08/05/2016 3:30pm Temperature Source Temporal 08/05/2016 3:30pm Pulse Rate (adult) 92 bpm (60 - 90) 08/05/2016 7:19pm Respiratory Rate 18 bpm (12 - 24) 08/05/2016 7:19pm O2 Sat by Pulse Oximetry 98 % (88 - 100) 08/05/2016 7:19pm Blood Pressure 121/63 mm Hg 08/05/2016 7:19pm Blood Pressure Mean 100 mm Hg 08/05/2016 3:30pm Pain Numeric Pain Scale 0-No Pain 08/05/2016 3:30pm Height (Feet) 5 feet 08/05/2016 3:30pm Height (Inches) 7 inches 08/05/2016 3:30pm Height (Calculated Centimeters) 170.775297 cm 08/05/2016 3:30pm Weight (Pounds) 146 pounds 08/05/2016 3:30pm Weight (Ounces) 6.0 oz 07/08/2016 6:00am Weight (Calculated Grams) 16284.692 gm 07/08/2016 6:00am Weight (Calculated Kilograms) 66.762512 kilograms 08/05/2016 3:30pm Capillary Refill Capillary Refill Less Than 3 Seconds 08/05/2016 3:30pm Height 5 ft 7 in Weight 146 lb Body Mass Index 22.9 kg/m^2 Results Pending Laboratory Results Test Name Collection Date/Time Pending Microbiology Results Procedure Source Collection Date/Time Procedures Procedure Status Date Provider(s) Color Doppler echocardiography Active 07/10/16 ERICKA HALE DO Tracing only of electrocardiogram Completed 07/10/16 JACKIE MUÑOZ MD FACP FACC CCDS Tracing only of electrocardiogram Active 08/05/16 JUANA ADAMS MD Encounters Encounter Location Arrival/Admit Date Discharge/Depart Date Attending Provider Departed Emergency Room [facility] 08/05/16 3:12pm 08/05 7:19pm JUANA ADAMS MD Registered Clinic [facility] 07/27/16 11:27am EVAN MURO MD Registered Clinic [facility] 07/21/16 2:57pm JACKIE MUÑOZ FACP CCDS [facility] Discharged Inpatient [facility] 07/09/16 11:49am 12:10pm ERICKA HALE DO Discharged Inpatient [facility] 07/06/16 12:27am 11:39am ERICKA HALE DO Recent Diagnosis
[2016-08-19 10:21] LABS: BASOPHILS % (AUTO) 0 % (0-10); EOSINOPHILS # (AUTO) 0.1 10^3/uL (0.0-0.3); EOSINOPHILS % (AUTO) 2 % (0-10); LYMPHOCYTES # (AUTO) 1.6 X 10^3 (1.0-4.0); LYMPHOCYTES % (AUTO) 29 % (12-44); MEAN CORPUSCULAR HEMOGLOBIN 30 PG (25-34); MEAN CORPUSCULAR HGB CONC 32 G/DL (32-36); MEAN CORPUSCULAR VOLUME 94 FL (80-99); MEAN PLATELET VOLUME 9.6 FL (7.4-10.4); MONOCYTES # (AUTO) 0.8 X 10^3 (0.0-1.0); MONOCYTES % (AUTO) 14 % (0-12); NEUTROPHILS % (AUTO) 54 % (42-75); PLATELET COUNT 240 10^3/uL (130-400); RED BLOOD COUNT 3.55 10^6/uL (4.35-5.85); RED CELL DISTRIBUTION WIDTH 14.5 % (10.0-14.5); WHITE BLOOD COUNT 5.5 10^3/uL (4.3-11.0)
[2016-08-19 10:48] LABS: CALCIUM 8.9 MG/DL (8.5-10.1); CREATININE SERUM 1.61 MG/DL (0.60-1.30); POTASSIUM 4.6 MMOL/L (3.6-5.0)
== END ==
LOC: HH 10:12
PROVIDERS: ATTEND Family Medicine
DX: D64.9 Anemia, unspecified (principal); N18.9 Chronic kidney disease, unspecified
CPT/HCPCS: 80048; 85025

== ENCOUNTER → 2016-09-15 | Outpatient (CLI) | payer MEDICARE, OTHER ==
[2016-09-15 12:41] LABS: MEAN PLATELET VOLUME 9.9 FL (7.4-10.4); RED BLOOD COUNT 3.72 10^6/uL (4.35-5.85); RED CELL DISTRIBUTION WIDTH 15.5 % (10.0-14.5); WHITE BLOOD COUNT 6.2 10^3/uL (4.3-11.0)
[2016-09-15 12:44] LABS: BILIRUBIN,URINE NEGATIVE (NEGATIVE); KETONES,URINE NEGATIVE (NEGATIVE); LEUKOCYTE ESTERASE ,URINE 3+ (NEGATIVE); NITRITE,URINE POSITIVE (NEGATIVE); PH,URINE 6 (5-9); PROTEIN,URINE 2+ (NEGATIVE); UROBILINOGEN,URINE NORMAL (NORMAL)
[2016-09-15 12:59] LABS: SQUAMOUS EPITHELIAL CELL,UR 0-2 /HPF; WBC,URINE >100 /HPF
[2016-09-15 13:03] LABS: ALBUMIN 3.9 G/DL (3.2-4.5); CALCIUM 9.1 MG/DL (8.5-10.1); CREATININE SERUM 1.45 MG/DL (0.60-1.30); PHOSPHORUS 3.1 MG/DL (2.3-4.7); POTASSIUM 4.6 MMOL/L (3.6-5.0)
[2016-09-15 13:05] LABS: PROTEIN/CREATININE RATIO 0.91
== END ==
LOC: HH 12:36
PROVIDERS: ATTEND Internal Medicine Nephrology
DX: I10 Essential (primary) hypertension (principal); E78.5 Hyperlipidemia, unspecified; N17.9 Acute kidney failure, unspecified; N39.0 Urinary tract infection, site not specified
CPT/HCPCS: 80069; 81000; 82570; 84156; 85027; 87077; 87088; 87186

== ENCOUNTER → 2016-11-12 | Outpatient (CLI) | payer MEDICARE, OTHER ==
--- NOTE | 2016-11-12 15:47 | Diagnostic Imaging Report ---
EXAMINATION: Right lower extremity duplex venous ultrasound. TECHNIQUE: DVT protocol. Multiple sonographic images with color Doppler and waveform interrogation were performed of the right lower extremity veins with compression and augmentation maneuvers. INDICATION: Right leg swelling. FINDINGS: The right lower extremity veins from the groin to below the knee veins were examined with normal color-flow, compressibility and normal waveform demonstrated. The great saphenous vein is patent. IMPRESSION: No evidence of DVT in the right lower extremity. Dictated by: Dictated on workstation # [id number]
[2016-11-12 16:00] LABS: ALBUMIN 4.4 G/DL (3.2-4.5); BILIRUBIN,TOTAL 0.3 MG/DL (0.1-1.0); CALCIUM 9.7 MG/DL (8.5-10.1); CREATININE SERUM 1.55 MG/DL (0.60-1.30); MAGNESIUM 2.2 MG/DL (1.8-2.4); POTASSIUM 4.4 MMOL/L (3.6-5.0); TOTAL PROTEIN 7.5 G/DL (6.4-8.2)
== END ==
LOC: RAD 15:15
PROVIDERS: ATTEND Nurse Practitioner Family
DX: R22.41 Localized swelling, mass and lump, right lower limb (principal); I25.5 Ischemic cardiomyopathy; I12.9 Hypertensive chronic kidney disease with stage 1 through stage 4 chronic kidney disease, or unspecified chronic kidney disease; N18.4 Chronic kidney disease, stage 4 (severe)
CPT/HCPCS: 36415; 80053; 83735

== ENCOUNTER → 2016-11-17 | Outpatient (CLI) | payer MEDICARE, OTHER ==
[~2016-11-17] MED LIST changes: +CATHETER FLUSH 10 ML SYR IV PRN; +REGADENOSON 0.4 MG/5 ML SYR (LEXISCAN) IV ONE
[2016-11-17 10:05] VITALS: BP 174/73
--- NOTE | 2016-11-17 21:25 | STRESS TEST ---
DATE OF SERVICE: 11/17/2016 RESTING AND POST REGADENOSON TECHNETIUM 99M TETROFOSMIN SPECT CT IMAGING ORDERING PHYSICIAN: Lashonda Valenzuela APRN PRIMARY PHYSICIAN: Dr. Nayak. OTHER PHYSICIAN: Dr. Muñoz. CLINICAL DIAGNOSES: Ischemic cardiomyopathy, hypertension, chronic kidney disease stage IV. Baseline images were carried out after injection of 10.12 mCi of technetium-99m tetrofosmin. This was followed by 0.4 mg regadenoson and 27.8 mCi of technetium-99m tetrofosmin for stress imaging. The electrocardiogram showed sinus rhythm at baseline and it did not change significantly with the regadenoson infusion. Review of images at rest and following stress indicates a predominantly fixed basal inferior perfusion defect. Gated images show mild to moderate global hypokinesis of the left ventricle, which is somewhat more marked in the basal inferior wall. Left ventricular ejection fraction is calculated to be 38%. Left ventricular end diastolic volume is 110 mL. TID is absent (0.9). CONCLUSIONS: 1. Basal inferior infarction with minimal april-infarct ischemia. 2. Global hypokinesis of the left ventricle, somewhat more prominent in the basal inferior wall. 3. Left ventricular ejection fraction is calculated to be 38%. Job ID: [id number] DocumentID: [id number] Dictated Date: 11/17/2016 13:27:19 Utilities Estimator And Drafter Date: 11/17/2016 15:52:04 Dictated By: JACKIE MUÑOZ MD, MA, FACP, FACC,
== END ==
LOC: CARD 08:27
PROVIDERS: ATTEND Nurse Practitioner Family
DX: M79.89 Other specified soft tissue disorders (principal); I25.5 Ischemic cardiomyopathy; I12.9 Hypertensive chronic kidney disease with stage 1 through stage 4 chronic kidney disease, or unspecified chronic kidney disease; N18.4 Chronic kidney disease, stage 4 (severe)
CPT/HCPCS: 78452; 93017

== ENCOUNTER → 2016-11-20 | Outpatient (CLI) | payer MEDICARE, OTHER ==
[~2016-11-20] MED LIST changes: -CATHETER FLUSH 10 ML SYR IV PRN; -REGADENOSON 0.4 MG/5 ML SYR (LEXISCAN) IV ONE
== END ==
LOC: CARD 14:53
PROVIDERS: ATTEND Nurse Practitioner Family
DX: M79.89 Other specified soft tissue disorders (principal); I25.5 Ischemic cardiomyopathy; I12.9 Hypertensive chronic kidney disease with stage 1 through stage 4 chronic kidney disease, or unspecified chronic kidney disease; N18.4 Chronic kidney disease, stage 4 (severe)
CPT/HCPCS: 93306

== ENCOUNTER → 2017-03-11 | Outpatient (CLI) | payer MEDICARE, OTHER ==
[2017-03-11 12:32] LABS: MEAN PLATELET VOLUME 10.3 FL (7.4-10.4); RED BLOOD COUNT 4.03 10^6/uL (4.35-5.85); RED CELL DISTRIBUTION WIDTH 13.7 % (10.0-14.5); WHITE BLOOD COUNT 7.5 10^3/uL (4.3-11.0)
[2017-03-11 12:34] LABS: BILIRUBIN,URINE NEGATIVE (NEGATIVE); KETONES,URINE NEGATIVE (NEGATIVE); LEUKOCYTE ESTERASE ,URINE 3+ (NEGATIVE); NITRITE,URINE POSITIVE (NEGATIVE); PH,URINE 7 (5-9); PROTEIN,URINE 2+ (NEGATIVE); UROBILINOGEN,URINE NORMAL (NORMAL)
[2017-03-11 12:48] LABS: ALBUMIN 4.2 GM/DL (3.2-4.5); CALCIUM 9.5 MG/DL (8.5-10.1); CREATININE SERUM 1.86 MG/DL (0.60-1.30); POTASSIUM 4.1 MMOL/L (3.6-5.0); SQUAMOUS EPITHELIAL CELL,UR 0-2 /HPF; WBC,URINE >100 /HPF
[2017-03-11 12:56] LABS: PROTEIN/CREATININE RATIO 1.03
[2017-03-11 13:11] LABS: THYROID STIMULATING HORMONE 2.7 UIU/ML (0.35-4.94)
[2017-03-11 15:11] LABS: %SAT TOTAL IRON BINDING CAPIC 30 % (15-50); TIBC 338 ug/dL (280-380)
[2017-03-12 06:59] LABS: UIBC 236 ug/dL (55-450); VITAMIN D 25-HYDROXY (TOTAL) 23 ng/mL (30-100)
[2017-03-12 07:00] LABS: CALCIUM PARA THYROID HORMONE 9.2 mg/dL (8.5-10.5)
[2017-03-12 07:04] LABS: C3 COMPLEMENT SERUM 146 mg/dL (73-183); C4 COMPLEMENT SERUM 45 mg/dL (15-59)
== END ==
LOC: HH 11:30
PROVIDERS: ATTEND Internal Medicine Nephrology
DX: N39.0 Urinary tract infection, site not specified (principal); N18.3 Chronic kidney disease, stage 3 (moderate)
CPT/HCPCS: 80069; 81000; 82306; 82570; 82728; 83540; 83970; 84156; 84439; 84443; 85027; 86038; 86160

== ENCOUNTER 2017-04-14 07:00 | Outpatient (RCR) | payer MEDICARE, OTHER ==
[~2017-04-14 07:00] MED LIST changes: +ACHD5005 PO; -HYDR-3812 PO
[2017-04-14 12:15] LABS: BILIRUBIN,URINE NEGATIVE (NEGATIVE); CLARITY,URINE BLOODY; COLOR,URINE RED; GLUCOSE, URINE (UA) NEGATIVE (NEGATIVE); KETONES,URINE 1+ (NEGATIVE); LEUKOCYTE ESTERASE ,URINE 3+ (NEGATIVE); NITRITE,URINE POSITIVE (NEGATIVE); PH,URINE 7 (5-9); PROTEIN,URINE 4+ (NEGATIVE); UROBILINOGEN,URINE NORMAL (NORMAL)
[2017-04-14 12:52] LABS: BACTERIA,URINE TRACE /HPF; RBC,URINE TNTC /HPF; WBC,URINE TNTC /HPF
[2017-06-27] MEDS ORDERED: AMLO5TAB2 PO (09:40)
[2017-06-27] MEDS ORDERED: ASPI-983 PO (14:59)
[2017-06-27] MEDS ORDERED: CHOL5000 PO (14:59)
[2017-06-27] MEDS ORDERED: ACET-2422 PO (14:59)
[2017-06-27] MEDS ORDERED: AMLO10TA2 PO (14:59)
[2017-06-28] MEDS ORDERED: CEPH-507 PO (11:53)
[2017-06-28] MEDS ORDERED: NEBI5TAB8 PO (11:53)
== END 2017-07-13 | disposition home or self-care (01) ==
LOC: HH 07:00
PROVIDERS: ATTEND Urology
DX: N39.0 Urinary tract infection, site not specified (principal)
CPT/HCPCS: 81000; 87077; 87088; 87186

== ENCOUNTER → 2017-05-14 | Outpatient (CLI) | payer MEDICARE, OTHER ==
[~2017-05-14] MED LIST changes: -ACHD5005 PO; +HYDR-3812 PO
[2017-05-14 13:38] LABS: BASOPHILS # (AUTO) 0.1 10^3/uL (0.0-0.1); BASOPHILS % (AUTO) 1 % (0-10); EOSINOPHILS # (AUTO) 0.2 10^3/uL (0.0-0.3); EOSINOPHILS % (AUTO) 3 % (0-10); LYMPHOCYTES % (AUTO) 28 % (12-44); MEAN CORPUSCULAR HEMOGLOBIN 32 PG (25-34); MEAN CORPUSCULAR HGB CONC 34 G/DL (32-36); MEAN CORPUSCULAR VOLUME 93 FL (80-99); MEAN PLATELET VOLUME 9.9 FL (7.4-10.4); MONOCYTES # (AUTO) 0.8 X 10^3 (0.0-1.0); MONOCYTES % (AUTO) 11 % (0-12); NEUTROPHILS # (AUTO) 4.1 X 10^3 (1.8-7.8); NEUTROPHILS % (AUTO) 58 % (42-75); PLATELET COUNT 186 10^3/uL (130-400); RED BLOOD COUNT 4.25 10^6/uL (4.35-5.85); RED CELL DISTRIBUTION WIDTH 13.2 % (10.0-14.5); WHITE BLOOD COUNT 7.1 10^3/uL (4.3-11.0)
[2017-05-14 13:40] LABS: BILIRUBIN,URINE NEGATIVE (NEGATIVE); KETONES,URINE NEGATIVE (NEGATIVE); LEUKOCYTE ESTERASE ,URINE 3+ (NEGATIVE); NITRITE,URINE NEGATIVE (NEGATIVE); PH,URINE 6.5 (5-9); PROTEIN,URINE 1+ (NEGATIVE); UROBILINOGEN,URINE NORMAL (NORMAL)
[2017-05-14 13:56] LABS: ALBUMIN 4.1 GM/DL (3.2-4.5); CALCIUM 9.1 MG/DL (8.5-10.1); CREATININE SERUM 1.85 MG/DL (0.60-1.30); PHOSPHORUS 2.8 MG/DL (2.3-4.7); URIC ACID 7.5 MG/DL (2.6-7.2)
[2017-05-14 13:57] LABS: PROTEIN/CREATININE RATIO 0.93
[2017-05-15 13:50] LABS: CALCIUM PARA THYROID HORMONE 9.4 mg/dL (8.5-10.5)
== END ==
LOC: HH 07:00
PROVIDERS: ATTEND Internal Medicine Nephrology
DX: I13.0 Hypertensive heart and chronic kidney disease with heart failure and stage 1 through stage 4 chronic kidney disease, or unspecified chronic kidney disease (principal); N18.3 Chronic kidney disease, stage 3 (moderate); I50.9 Heart failure, unspecified; E78.5 Hyperlipidemia, unspecified; N17.9 Acute kidney failure, unspecified; K21.9 Gastro-esophageal reflux disease without esophagitis; N39.0 Urinary tract infection, site not specified; N13.9 Obstructive and reflux uropathy, unspecified; R60.9 Edema, unspecified; M19.91 Primary osteoarthritis, unspecified site
CPT/HCPCS: 80069; 81000; 82306; 82570; 83970; 84156; 84550; 85025; 87077; 87088; 87186

== ENCOUNTER → 2017-06-11 | Outpatient (CLI) | payer MEDICARE, OTHER ==
[~2017-06-11] MED LIST changes: +ACHD5005 PO; -HYDR-3812 PO
[2017-06-11 10:50] LABS: BILIRUBIN,URINE NEGATIVE (NEGATIVE); CLARITY,URINE CLEAR; COLOR,URINE YELLOW; GLUCOSE, URINE (UA) NEGATIVE (NEGATIVE); HEMOGLOBIN 10.6 G/DL (11.5-16.0); KETONES,URINE NEGATIVE (NEGATIVE); LEUKOCYTE ESTERASE ,URINE 3+ (NEGATIVE); MEAN PLATELET VOLUME 9.3 FL (7.4-10.4); NITRITE,URINE NEGATIVE (NEGATIVE); PH,URINE 6 (5-9); PROTEIN,URINE 2+ (NEGATIVE); RED BLOOD COUNT 3.41 10^6/uL (4.35-5.85); RED CELL DISTRIBUTION WIDTH 13.4 % (10.0-14.5); UROBILINOGEN,URINE NORMAL (NORMAL); WHITE BLOOD COUNT 6.5 10^3/uL (4.3-11.0)
[2017-06-11 11:09] LABS: ALBUMIN 3.9 GM/DL (3.2-4.5); CALCIUM 9.2 MG/DL (8.5-10.1); CREATININE SERUM 1.87 MG/DL (0.60-1.30); PHOSPHORUS 3.3 MG/DL (2.3-4.7); POTASSIUM 4.2 MMOL/L (3.6-5.0); URIC ACID 8.1 MG/DL (2.6-7.2)
[2017-06-11 11:12] LABS: BACTERIA,URINE FEW /HPF; RBC,URINE RARE /HPF; SQUAMOUS EPITHELIAL CELL,UR 0-2 /HPF; WBC,URINE 50-100 /HPF
== END ==
LOC: HH 07:00
PROVIDERS: ATTEND Internal Medicine Nephrology
DX: N18.3 Chronic kidney disease, stage 3 (moderate) (principal); I12.9 Hypertensive chronic kidney disease with stage 1 through stage 4 chronic kidney disease, or unspecified chronic kidney disease; N39.0 Urinary tract infection, site not specified
CPT/HCPCS: 80069; 81000; 82306; 82570; 83970; 84156; 84550; 85027; 87077; 87088; 87186

== ENCOUNTER → 2017-08-23 | Outpatient (CLI) | payer MEDICARE, OTHER ==
[~2017-08-23] MED LIST changes: +ACET-2422 PO; +AMLO10TA2 PO; +AMLO5TAB2 PO; +ASPI-983 PO; +CHOL5000 PO
[2017-08-23 11:56] LABS: HEMOGLOBIN 12.6 G/DL (11.5-16.0); MEAN PLATELET VOLUME 9.5 FL (7.4-10.4); RED BLOOD COUNT 4.11 10^6/uL (4.35-5.85); WHITE BLOOD COUNT 6.2 10^3/uL (4.3-11.0)
[2017-08-23 12:03] LABS: BILIRUBIN,URINE NEGATIVE (NEGATIVE); CLARITY,URINE VERY CLOUDY; COLOR,URINE YELLOW; GLUCOSE, URINE (UA) NEGATIVE (NEGATIVE); KETONES,URINE NEGATIVE (NEGATIVE); LEUKOCYTE ESTERASE ,URINE 3+ (NEGATIVE); NITRITE,URINE NEGATIVE (NEGATIVE); PH,URINE 6 (5-9); PROTEIN,URINE 3+ (NEGATIVE); UROBILINOGEN,URINE NORMAL (NORMAL)
[2017-08-23 12:14] LABS: BACTERIA,URINE LARGE /HPF; WBC,URINE TNTC /HPF
[2017-08-23 12:17] LABS: PHOSPHORUS 3.3 MG/DL (2.3-4.7); URIC ACID 7.2 MG/DL (2.6-7.2)
== END ==
LOC: LAB 11:18
PROVIDERS: ATTEND Nurse Practitioner
DX: I13.0 Hypertensive heart and chronic kidney disease with heart failure and stage 1 through stage 4 chronic kidney disease, or unspecified chronic kidney disease (principal); I50.9 Heart failure, unspecified; N18.4 Chronic kidney disease, stage 4 (severe); E78.5 Hyperlipidemia, unspecified; E55.9 Vitamin D deficiency, unspecified; D64.9 Anemia, unspecified; N39.0 Urinary tract infection, site not specified; N17.9 Acute kidney failure, unspecified; K21.9 Gastro-esophageal reflux disease without esophagitis; N13.9 Obstructive and reflux uropathy, unspecified; R60.9 Edema, unspecified; R31.9 Hematuria, unspecified; R80.9 Proteinuria, unspecified; E87.2 Acidosis; E79.0 Hyperuricemia without signs of inflammatory arthritis and tophaceous disease; N25.81 Secondary hyperparathyroidism of renal origin; E04.9 Nontoxic goiter, unspecified
CPT/HCPCS: 36415; 81000; 82306; 82570; 82728; 83540; 84100; 84156; 84550; 85027; 87088

== ENCOUNTER → 2017-09-13 | Outpatient (CLI) | payer MEDICARE, OTHER ==
[2017-09-13 14:43] LABS: BILIRUBIN,URINE NEGATIVE (NEGATIVE); CLARITY,URINE VERY CLOUDY; COLOR,URINE YELLOW; GLUCOSE, URINE (UA) NEGATIVE (NEGATIVE); KETONES,URINE NEGATIVE (NEGATIVE); LEUKOCYTE ESTERASE ,URINE 3+ (NEGATIVE); NITRITE,URINE NEGATIVE (NEGATIVE); PH,URINE 6 (5-9); PROTEIN,URINE 3+ (NEGATIVE); UROBILINOGEN,URINE NORMAL (NORMAL)
[2017-09-13 14:56] LABS: BACTERIA,URINE FEW /HPF; RBC,URINE >100 /HPF; WBC,URINE TNTC /HPF
== END ==
LOC: LAB 13:03
PROVIDERS: ATTEND Internal Medicine Nephrology
DX: I13.0 Hypertensive heart and chronic kidney disease with heart failure and stage 1 through stage 4 chronic kidney disease, or unspecified chronic kidney disease (principal); I50.9 Heart failure, unspecified; N18.4 Chronic kidney disease, stage 4 (severe); R31.9 Hematuria, unspecified; E78.5 Hyperlipidemia, unspecified; E55.9 Vitamin D deficiency, unspecified; D64.9 Anemia, unspecified; N39.0 Urinary tract infection, site not specified; N17.9 Acute kidney failure, unspecified; K21.9 Gastro-esophageal reflux disease without esophagitis; N13.9 Obstructive and reflux uropathy, unspecified; R60.9 Edema, unspecified; R80.9 Proteinuria, unspecified; E87.2 Acidosis; E79.0 Hyperuricemia without signs of inflammatory arthritis and tophaceous disease; N25.81 Secondary hyperparathyroidism of renal origin; E04.9 Nontoxic goiter, unspecified
CPT/HCPCS: 81000; 87077; 87088; 87186

== ENCOUNTER 2017-12-02 13:00 | Outpatient (RCR) | payer MEDICARE, OTHER | END 2017-12-02 15:43 | disposition home or self-care (01) | PROVIDERS: ATTEND Internal Medicine Nephrology | DX: R32 Unspecified urinary incontinence (principal) ==

== ENCOUNTER → 2017-12-07 | Outpatient (CLI) | payer MEDICARE, OTHER ==
[2017-12-07 11:49] LABS: BASOPHILS % (AUTO) 1 % (0-10); EOSINOPHILS # (AUTO) 0.2 10^3/uL (0.0-0.3); EOSINOPHILS % (AUTO) 3 % (0-10); HEMATOCRIT 38 % (35-52); LYMPHOCYTES # (AUTO) 2.2 X 10^3 (1.0-4.0); LYMPHOCYTES % (AUTO) 30 % (12-44); MEAN CORPUSCULAR HEMOGLOBIN 31 PG (25-34); MEAN CORPUSCULAR HGB CONC 34 G/DL (32-36); MEAN CORPUSCULAR VOLUME 90 FL (80-99); MEAN PLATELET VOLUME 9.1 FL (7.4-10.4); MONOCYTES # (AUTO) 0.9 X 10^3 (0.0-1.0); MONOCYTES % (AUTO) 12 % (0-12); NEUTROPHILS # (AUTO) 3.9 X 10^3 (1.8-7.8); NEUTROPHILS % (AUTO) 54 % (42-75); PLATELET COUNT 204 10^3/uL (130-400); RED BLOOD COUNT 4.24 10^6/uL (4.35-5.85); WHITE BLOOD COUNT 7.2 10^3/uL (4.3-11.0)
[2017-12-07 11:56] LABS: BILIRUBIN,URINE NEGATIVE (NEGATIVE); CLARITY,URINE SLIGHTLY CLOUDY; COLOR,URINE YELLOW; GLUCOSE, URINE (UA) NEGATIVE (NEGATIVE); KETONES,URINE NEGATIVE (NEGATIVE); LEUKOCYTE ESTERASE ,URINE 3+ (NEGATIVE); NITRITE,URINE POSITIVE (NEGATIVE); PH,URINE 6 (5-9); PROTEIN,URINE 3+ (NEGATIVE); UROBILINOGEN,URINE NORMAL (NORMAL)
[2017-12-07 12:08] LABS: ALBUMIN 4.3 GM/DL (3.2-4.5); CALCIUM 9.6 MG/DL (8.5-10.1); CREATININE SERUM 2.22 MG/DL (0.60-1.30); PHOSPHORUS 3.9 MG/DL (2.3-4.7); POTASSIUM 4.5 MMOL/L (3.6-5.0)
[2017-12-07 12:10] LABS: BACTERIA,URINE MODERATE /HPF; SQUAMOUS EPITHELIAL CELL,UR RARE /HPF; WBC,URINE TNTC /HPF
== END ==
LOC: LAB 11:19
PROVIDERS: ATTEND Internal Medicine Nephrology
DX: I13.0 Hypertensive heart and chronic kidney disease with heart failure and stage 1 through stage 4 chronic kidney disease, or unspecified chronic kidney disease (principal); N18.4 Chronic kidney disease, stage 4 (severe); N39.0 Urinary tract infection, site not specified; I50.9 Heart failure, unspecified; E78.5 Hyperlipidemia, unspecified; N17.9 Acute kidney failure, unspecified; K21.9 Gastro-esophageal reflux disease without esophagitis; N13.9 Obstructive and reflux uropathy, unspecified; R60.9 Edema, unspecified; E55.9 Vitamin D deficiency, unspecified; R31.9 Hematuria, unspecified; R80.9 Proteinuria, unspecified; E87.2 Acidosis; D64.9 Anemia, unspecified; E79.0 Hyperuricemia without signs of inflammatory arthritis and tophaceous disease; N25.81 Secondary hyperparathyroidism of renal origin; E04.9 Nontoxic goiter, unspecified
CPT/HCPCS: 36415; 80069; 81000; 82306; 82570; 83970; 84156; 85025; 87077; 87088; 87186

== ENCOUNTER → 2017-12-27 | Outpatient (CLI) | payer MEDICARE, OTHER ==
--- NOTE | 2017-12-27 11:40 | Diagnostic Imaging Report ---
PROCEDURE: US Renal Bilateral. TECHNIQUE: Multiple Real-time grayscale images were obtained over the kidneys in various projections bilaterally. INDICATION: Urinary incontinence. FINDINGS: The right kidney measures 8.1 x 4.6 x 4.2 cm. The left kidney measures 7.9 x 5.2 x 3.8 cm. Both kidneys demonstrate normal renal cortical thickness and echogenicity. There is no hydronephrosis, calculus, or mass. The bladder is normal in appearance. Neither ureteral jet is visualized. The IVC is not seen. IMPRESSION: Unremarkable sonographic appearance of the kidneys. Neither ureteral jet is visualized. Dictated by: Dictated on workstation # [id number]
--- NOTE | 2017-12-27 11:41 | Diagnostic Imaging Report ---
INDICATION: Urinary retention. Multiple real-time grayscale images were obtained of the bladder in various projections. FINDINGS: Prevoid bladder volume is 88 mL. Postvoid bladder volume is 71 mL. Neither ureteral jet was visualized. IMPRESSION: Moderate postvoid residual bladder volume of 71 mL. Dictated by: Dictated on workstation # [id number]
== END ==
LOC: RAD 09:59
PROVIDERS: ATTEND Internal Medicine Nephrology
DX: I13.0 Hypertensive heart and chronic kidney disease with heart failure and stage 1 through stage 4 chronic kidney disease, or unspecified chronic kidney disease (principal); N18.4 Chronic kidney disease, stage 4 (severe); I50.9 Heart failure, unspecified; E78.5 Hyperlipidemia, unspecified; K21.9 Gastro-esophageal reflux disease without esophagitis; N39.0 Urinary tract infection, site not specified; N13.9 Obstructive and reflux uropathy, unspecified; E55.9 Vitamin D deficiency, unspecified; E87.2 Acidosis; D64.9 Anemia, unspecified; E79.0 Hyperuricemia without signs of inflammatory arthritis and tophaceous disease; N25.81 Secondary hyperparathyroidism of renal origin; E04.9 Nontoxic goiter, unspecified
CPT/HCPCS: 76770; 76857

== ENCOUNTER → 2018-02-09 | Outpatient (CLI) | payer MEDICARE, OTHER ==
[~2018-02-09] MED LIST changes: -AMLO10TA2 PO; +AMLO10TA6 PO; -AMLO5TAB2 PO; +AMLO5TAB7 PO
[2018-02-09 14:59] LABS: BASOPHILS # (AUTO) 0.1 10^3/uL (0.0-0.1); BASOPHILS % (AUTO) 1 % (0-10); EOSINOPHILS # (AUTO) 0.2 10^3/uL (0.0-0.3); EOSINOPHILS % (AUTO) 2 % (0-10); HEMATOCRIT 37 % (35-52); HEMOGLOBIN 12.7 G/DL (11.5-16.0); LYMPHOCYTES # (AUTO) 2.2 X 10^3 (1.0-4.0); LYMPHOCYTES % (AUTO) 31 % (12-44); MEAN CORPUSCULAR HEMOGLOBIN 32 PG (25-34); MEAN CORPUSCULAR HGB CONC 34 G/DL (32-36); MEAN CORPUSCULAR VOLUME 92 FL (80-99); MEAN PLATELET VOLUME 8.7 FL (7.4-10.4); MONOCYTES # (AUTO) 0.7 X 10^3 (0.0-1.0); MONOCYTES % (AUTO) 10 % (0-12); NEUTROPHILS % (AUTO) 57 % (42-75); PLATELET COUNT 184 10^3/uL (130-400); RED BLOOD COUNT 4.03 10^6/uL (4.35-5.85); RED CELL DISTRIBUTION WIDTH 13.5 % (10.0-14.5); WHITE BLOOD COUNT 7.1 10^3/uL (4.3-11.0)
[2018-02-09 15:14] LABS: ALBUMIN 4.1 GM/DL (3.2-4.5); CALCIUM 9.7 MG/DL (8.5-10.1); CREATININE SERUM 1.92 MG/DL (0.60-1.30); PHOSPHORUS 3.5 MG/DL (2.3-4.7); POTASSIUM 4.3 MMOL/L (3.6-5.0)
[2018-02-09 17:00] LABS: BILIRUBIN,URINE NEGATIVE (NEGATIVE); CLARITY,URINE VERY CLOUDY; COLOR,URINE YELLOW; GLUCOSE, URINE (UA) NEGATIVE (NEGATIVE); KETONES,URINE NEGATIVE (NEGATIVE); LEUKOCYTE ESTERASE ,URINE 3+ (NEGATIVE); NITRITE,URINE NEGATIVE (NEGATIVE); PH,URINE 6 (5-9); PROTEIN,URINE 3+ (NEGATIVE); UROBILINOGEN,URINE NORMAL (NORMAL)
[2018-02-09 17:10] LABS: BACTERIA,URINE MODERATE /HPF; SQUAMOUS EPITHELIAL CELL,UR RARE /HPF; WBC,URINE TNTC /HPF
== END ==
LOC: LAB 14:43
PROVIDERS: ATTEND Internal Medicine Nephrology
DX: I13.0 Hypertensive heart and chronic kidney disease with heart failure and stage 1 through stage 4 chronic kidney disease, or unspecified chronic kidney disease (principal); I50.9 Heart failure, unspecified; N18.3 Chronic kidney disease, stage 3 (moderate); E78.5 Hyperlipidemia, unspecified; N17.9 Acute kidney failure, unspecified; K21.9 Gastro-esophageal reflux disease without esophagitis; N39.0 Urinary tract infection, site not specified; N13.9 Obstructive and reflux uropathy, unspecified; R60.9 Edema, unspecified; E55.9 Vitamin D deficiency, unspecified; R31.9 Hematuria, unspecified; R80.9 Proteinuria, unspecified; E87.2 Acidosis; D64.9 Anemia, unspecified; E79.0 Hyperuricemia without signs of inflammatory arthritis and tophaceous disease; N25.81 Secondary hyperparathyroidism of renal origin; E04.9 Nontoxic goiter, unspecified; R32 Unspecified urinary incontinence
CPT/HCPCS: 36415; 80069; 81000; 82570; 84156; 85025; 87077; 87088; 87186

== ENCOUNTER → 2018-03-03 | Outpatient (CLI) | payer MEDICARE, OTHER | LOC: CARD 08:56 | PROVIDERS: ATTEND Nurse Practitioner Family | DX: I25.5 Ischemic cardiomyopathy (principal); I11.0 Hypertensive heart disease with heart failure; I50.22 Chronic systolic (congestive) heart failure; E78.4 Other hyperlipidemia; I08.0 Rheumatic disorders of both mitral and aortic valves | CPT/HCPCS: 93306 ==

== ENCOUNTER → 2018-04-05 | Day surgery (SDC) | payer MEDICARE, OTHER ==
[2018-04-05] VITALS (10 sets, daily range): BP systolic 126–169; BP diastolic 61–80
[~2018-04-05] VITALS: Ht 170.2 cm; Wt 67.6 kg
[~2018-04-05] MED LIST changes: +LIDOCAINE 2% VISCOUS 15 ML UDC ONE; +LIDOCAINE 2% VISCOUS 15 ML UDC PO ONE; +LORA1TAB59 PO; +MIDAZOLAM 5 MG/5 ML (VERSED) VIAL IV PRN; +MIDAZOLAM 5 MG/5 ML (VERSED) VIAL ONE; +NS IV 1000 ML 1,000 ML IV SCH; +NS IV 1000 ML 1,000 ML ONE; +SODIUM BICARB PO; +fentaNYL INJECTION 100 MCG/2 ML AMP IV PRN; +fentaNYL INJECTION 100 MCG/2 ML AMP ONE
[2018-04-05 08:00] LABS: HEMOGLOBIN 13.6 G/DL (11.5-16.0); RED BLOOD COUNT 4.39 10^6/uL (4.35-5.85); RED CELL DISTRIBUTION WIDTH 13.4 % (10.0-14.5); WHITE BLOOD COUNT 7.9 10^3/uL (4.3-11.0)
[2018-04-05 08:12] LABS: PROTHROMBIN TIME PATIENT 12.9 SEC (12.2-14.7)
[2018-04-05 08:27] LABS: ALANINE AMINOTRANSFERASE 15 U/L (0-55); ALBUMIN 4.6 GM/DL (3.2-4.5); ALKALINE PHOSPHATASE 45 U/L (40-136); BILIRUBIN,TOTAL 0.5 MG/DL (0.1-1.0); BUN/CREATININE RATIO 17; CALCIUM 10.2 MG/DL (8.5-10.1); CARBON DIOXIDE 22 MMOL/L (21-32); CHLORIDE 106 MMOL/L (98-107); CHOLESTEROL 198 MG/DL (< 200); CREATININE SERUM 2.22 MG/DL (0.60-1.30); GFR ESTIMATED 22; GLUCOSE 102 MG/DL (70-105); HDL CHOLESTEROL 52 MG/DL (40-60); POTASSIUM 3.9 MMOL/L (3.6-5.0); SODIUM 140 MMOL/L (135-145); TOTAL PROTEIN 7.7 GM/DL (6.4-8.2); TRIGLYCERIDES 259 MG/DL (<150); VLDL CHOLESTEROL 52 MG/DL (5-40)
--- NOTE | 2018-04-05 11:24 | Cardiac Procedure Note-CS/ASA ---
Pre-Procedure Note Pre-Op Procedure Note H&P Reviewed The H&P was reviewed, patient examined and no changes noted. Date H&P Reviewed: Apr 05, 2018 Time H&P Reviewed: 10:40 Conscious Sedation Pre-Proced Time 10:40 ASA Score 3 For ASA 3 and 4: Consider anesthesia and medical clearance. Also, for patients with a history of failed moderate sedation consider anesthesia. Airway Lungs Heart ASA score ASA 1: a normal healthy patient ASA 2: a patient with a mild systemic disease (mid diabetes, controlled hypertension, obesity ASA 3: a patient with a severe systemic disease that limits activity (angina , COPD, prior Myocardial infarction) ASA 4: a patient with an incapacitating disease that is a constant threat to life (CHF, renal failure) ASA 5: a moribund patient not expected to survive 24 hrs. (ruptured aneurysm) ASA 6: a declared brain patient whose organs are being harvested. For emergent operations, add the letter E after the classification Mallampati Classification Grade 2 Sedation Plan Analgesia, Amnesia, Plan communicated to team members, Discussed options with patient/fam, Discussed risks with patient/fam The patient is an appropriate candidate to undergo the planned procedure, sedation, and anesthesia. The patient immediately re-assessed prior to indication. JACKIE MUÑOZ MD FACP FAC CCDS Apr 05, 2018 11:24
--- NOTE | 2018-04-05 12:09 | TEE REPORT ---
DATE OF SERVICE: 04/05/2018 CLINICAL DIAGNOSIS: Methicillin-resistant Staphylococcus aureus urinary tract infection, endocarditis suspected. Transesophageal echocardiography was carried out under conscious sedation after having obtained informed consent. We used a multiplane probe. All cardiac valves (mitral, aortic, pulmonic, tricuspid) were visualized and appeared to be structurally normal. Aortic valve is trileaflet. There is no evidence of vegetation. Aortic valve leaflets appear pliable. Doppler imaging indicates mild aortic and mitral regurgitation. There appears to be trivial tricuspid regurgitation. Agitated saline was injected through a right forearm vein. There was no crossover of the contrast on to the left side. There was no evidence of intracardiac shunt. There appears to be hypokinesis of the septum. Left ventricular ejection fraction estimated to be approximately 45%. CONCLUSIONS: 1. No evidence of endocarditis on this study. 2. No evidence of intracardiac shunt or intracardiac thrombus on this study. 3. Mild mitral and aortic regurgitation. 4. Septal hypokinesis. 5. Global left ventricular ejection fraction is estimated at approximately 45%. Job ID: [id number] DocumentID: [id number] Dictated Date: 04/05/2018 11:07:09 Call Center Receptionist Date: 04/05/2018 12:08:05 Dictated By: JACKIE MUÑOZ MD, MA, FACP, FACC,
== END | disposition home or self-care (01) ==
LOC: CATH 07:04
PROVIDERS: ATTEND Internal Medicine Cardiovascular Disease
DX: I25.5 Ischemic cardiomyopathy (principal); I13.0 Hypertensive heart and chronic kidney disease with heart failure and stage 1 through stage 4 chronic kidney disease, or unspecified chronic kidney disease; I50.23 Acute on chronic systolic (congestive) heart failure; N39.0 Urinary tract infection, site not specified; B95.62 Methicillin resistant Staphylococcus aureus infection as the cause of diseases classified elsewhere; E78.5 Hyperlipidemia, unspecified; N18.4 Chronic kidney disease, stage 4 (severe); I08.0 Rheumatic disorders of both mitral and aortic valves; Z79.899 Other long term (current) drug therapy; Z79.82 Long term (current) use of aspirin; Z87.891 Personal history of nicotine dependence
CPT/HCPCS: 36415; 80053; 80061; 85027; 85610; 85730; 87081; 93320; 93325

== ENCOUNTER → 2018-06-08 | Outpatient (CLI) | payer MEDICARE, OTHER ==
[~2018-06-08] MED LIST changes: -LIDOCAINE 2% VISCOUS 15 ML UDC ONE; -LIDOCAINE 2% VISCOUS 15 ML UDC PO ONE; -MIDAZOLAM 5 MG/5 ML (VERSED) VIAL IV PRN; -MIDAZOLAM 5 MG/5 ML (VERSED) VIAL ONE; -NS IV 1000 ML 1,000 ML IV SCH; -NS IV 1000 ML 1,000 ML ONE; -fentaNYL INJECTION 100 MCG/2 ML AMP IV PRN; -fentaNYL INJECTION 100 MCG/2 ML AMP ONE
[2018-06-08 15:03] LABS: HEMOGLOBIN 12.9 G/DL (11.5-16.0); MEAN PLATELET VOLUME 9.1 FL (7.4-10.4); RED BLOOD COUNT 4.15 10^6/uL (4.35-5.85); WHITE BLOOD COUNT 7.3 10^3/uL (4.3-11.0)
[2018-06-08 15:25] LABS: ALBUMIN 4.1 GM/DL (3.2-4.5); CALCIUM 9.2 MG/DL (8.5-10.1); CREATININE SERUM 2.7 MG/DL (0.60-1.30); PHOSPHORUS 4.5 MG/DL (2.3-4.7); POTASSIUM 4.8 MMOL/L (3.6-5.0); URIC ACID 7.6 MG/DL (2.6-7.2)
[2018-06-08 16:28] LABS: BILIRUBIN,URINE NEGATIVE (NEGATIVE); CLARITY,URINE MUCOUS; COLOR,URINE YELLOW; GLUCOSE, URINE (UA) NEGATIVE (NEGATIVE); KETONES,URINE NEGATIVE (NEGATIVE); LEUKOCYTE ESTERASE ,URINE 3+ (NEGATIVE); NITRITE,URINE NEGATIVE (NEGATIVE); PH,URINE 6 (5-9); PROTEIN,URINE 3+ (NEGATIVE); UROBILINOGEN,URINE NORMAL (NORMAL)
[2018-06-08 16:37] LABS: BACTERIA,URINE FEW /HPF; SQUAMOUS EPITHELIAL CELL,UR 0-2 /HPF; WBC,URINE TNTC /HPF
== END ==
LOC: LAB 14:36
PROVIDERS: ATTEND Internal Medicine Nephrology
DX: E55.9 Vitamin D deficiency, unspecified (principal); I13.0 Hypertensive heart and chronic kidney disease with heart failure and stage 1 through stage 4 chronic kidney disease, or unspecified chronic kidney disease; I50.9 Heart failure, unspecified; N18.4 Chronic kidney disease, stage 4 (severe); E78.5 Hyperlipidemia, unspecified; N17.9 Acute kidney failure, unspecified; K21.9 Gastro-esophageal reflux disease without esophagitis; N39.0 Urinary tract infection, site not specified; N13.9 Obstructive and reflux uropathy, unspecified; R60.9 Edema, unspecified; R31.9 Hematuria, unspecified; R80.9 Proteinuria, unspecified; E87.2 Acidosis; D64.9 Anemia, unspecified; E79.0 Hyperuricemia without signs of inflammatory arthritis and tophaceous disease; N25.81 Secondary hyperparathyroidism of renal origin; E04.9 Nontoxic goiter, unspecified; R32 Unspecified urinary incontinence
CPT/HCPCS: 36415; 80069; 81000; 82306; 82570; 83970; 84156; 84550; 85027; 87088